=== PATIENT | female | born 1950 | race Caucasian/White ===

== ENCOUNTER 2024-09-06 15:09 | Outpatient (AMB) | payer MEDICARE, SELFPAY ==
--- NOTE | 2024-09-06 15:13 | MHC.PC.OV ---
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 Intake Note: New patient visit Phlebotomy Technologist Required: No Allergies codeine Allergy (Mild, Verified 09/06/24 15:17) heart races Medication List - Last Reconciled 09/06/24 by Candice Zhang PA-C [[id number] .] escitalopram oxalate 10 mg PO DAILY glipizide ER 10 mg PO BID levothyroxine 50 mcg PO DAILY metformin 1,000 mg PO BID metoprolol tartrate 100 mg PO DAILY rosuvastatin 10 mg PO DAILY Tobacco use date assessed: 09/06/24 Fall risk assessment: No Falls in past year Last assessed Fall Risk: 09/06/24 Dental Screening Dental Screen Date: 09/06/24 Did you have a dental visit in the last 12 months?: No Did you have a dental problem in the last 6 months where you did not have access to dental care?: No Was dental information given to patient?: Patient declined 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 She is transferring from [place]. Endo: She was diagnosed with diabetes around 1994. Her last A1c today is 11. She is currently on glipizide 10 mg twice a day and metformin 1000 mg twice a day. She monitors bs once a day and its around 250. States that she has never had diabetic Education. She would correct low blood sugar with orange juice but states that she never has any low blood sugars. She feels fine with her blood sugars being high. CV: Blood pressure today in the office is 128/72. She is currently on metoprolol 100 mg daily. Not on an PEDRO-inhibitor. Cholesterol is controlled with Crestor 10 mg. 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 Mother had liver ca and she did not drink alcohol. Pt states she rarely drinks alcohol. Patient states that she had to move from [place] before a workup was done due to family drama. Psych: This year has been rough with the move from [place] to [place] and with the family dynamics. She states that she does not really have depression or anxiety and was taking Lexapro but found it ineffective. She is stopping this. No SI/HI. She did lose her a couple years ago and she has been dealing with that. She overall feels okay. She is currently staying with a friend in his originally from [place] and feeling well about being here. Derm: Complains today of an itchy, peeling and intermittently blistering rash on her hands. It started this winter. It gets worse when she washes her hands a lot. Mammo: does not want anymore Colonoscopy: a couple years ago Bone density: osteopenia overdue Sister had lung cancer Maternal grandmother had pancreatic ca Mother had liver ca - not a drinker [facility] Surgical History History of partial hysterectomy History of cholecystectomy Family History Brother Substance abuse Mother Liver cancer Sister Lung cancer Social History (Updated 09/06/24 @ 15:32 by Faina Castro CMA) Housing: House Alcohol intake: current Patient Tobacco Use Status: Former Tobacco user Cigarette Packs Per Day: 1 Years Smoked: 25 e-Cigarette/Vaping Use: Never Used Second Hand Smoke Exposure: No service: Yes Current occupational status: retired Cognitive needs: No Hearing needs: Yes (hearing loss) Vision needs: No Questionnaire PHQ-9 Over the last 2 weeks, how often have you been bothered by any of the following problems? 1. Little interest or pleasure in doing things: not at all 2. Feeling down, depressed, or hopeless: not at all 3. Trouble falling or staying asleep, or sleeping too much: more than half the days 4. Feeling tired or having little energy: more than half the days 5. Poor appetite or overeating: not at all 6. Feeling bad about yourself - or that you are a failure or have let yourself or your family down: not at all 7. Trouble concentrating on things, such as reading the newspaper or watching television: not at all 8. Moving or speaking so slowly that other people could have noticed. Or the opposite - being so fidgety or restless that you have been moving around a lot more than usual: not at all 9. Thoughts that you would be better off or of hurting yourself in some way: not at all Total score: 4 Depression Screening Interpretation: Positive Depression Screening Follow-up: Existing condition and In treatment Depression Screening Done: Yes 81778 - PHQ-9 Billing: Yes Source: Developed by Drs. Ace Juan, Joy Green, Tanmay Lopez and colleagues, with an educational radha from [employer]. Thrive Questionnaire Date Thrive assessed: 08/30/24 I am a: Patient What is your living situation today?: I have a steady place to live Within the past 12 months, did the food you bought not last and you didn't have the money to get more?: Never true Within the past 12 months, did you worry whether your food would run out before you got money to buy more?: Never true Do you have trouble paying for medicines?: No Do you have trouble getting transportation to medical appointments?: No Do you have trouble paying your heating and electricity bill?: No Do you have trouble taking care of your child, family member or friend?: No Do you have trouble with day-to-day activities such as bathing, preparing meals, shopping, managing finances, etc.?: No Are you currently unemployed and looking for a job?: No Are you interested in more education?: No Please select the resources that you would like help with: None Currently or been in a relationship where the following occur: No concerns reported THRIVE Score: 0 AUDIT C Alcohol Use Questionnaire (AUDIT-C) 1. How often do you have a drink containing alcohol?: Monthly or less 2. How many drinks containing alcohol do you have on a typical day when you are drinking?: 1 or 2 3. How often do you have six or more drinks on one occasion?: Never Total Score: 1 Score Reviewed/Action Taken: Yes RAFAELA-7 AMB Questionnaire RAFAELA-7 Date RAFAELA - 7 assessed: 09/06/24 Feeling nervous, anxious, or on edge: 0 = Not at all Not being able to stop or control worryin = Not at all Worrying too much about different things: 0 = Not at all Trouble relaxin = Not at all Being so restless that it is hard to sit still: 0 = Not at all Becoming easily annoyed or irritable: 0 = Not at all Feeling afraid as if something awful might happen: 0 = Not at all Total RAFAELA-7 score (0-4 normal; 5-9 mild; 10-14 moderate; 15-21 severe): 0 Source: Developed by Drs. Ace Juan, Joy Green, Tanmay Lopez and colleagues, with an educational radha from [employer]. RAFAELA-7 Assessment Billing RAFAELA-7 Assessment Tool: RAFAELA-7 Assessment 82792 Physical exam (Primary Care) Vital Signs: Last Vital Signs Pulse 78 09/06/24 15:30 BP 128/72 09/06/24 15:30 Pulse Ox 96 09/06/24 15:30 Oxygen Delivery Method Room Air 09/06/24 15:30 BMI result Body Mass Index 33.9 Tobacco/Smoking Status: Tobacco use Status Tobacco use date assessed 09/06/24 09/06/24 15:32 Patient Tobacco Use Status Former Tobacco user 09/06/24 15:32 e-Cigarette/Vaping Use Never Used 09/06/24 15:32 PHQ-9: PHQ-9 Score PHQ-9: Total score 4 09/06/24 15:33 Depression Screening Interpretation: Positive Depression Screening Follow-up: Existing condition and In treatment Thrive Assessment: Date of Thrive Assessment Date Thrive assessed 08/30/24 09/06/24 15:32 Currently or been in a relationship where the following occur: No concerns reported Const Orientation/consciousness: patient oriented x3 HENMT Ears: hearing grossly normal bilaterally Neck Thyroid: Thyroid normal Lymphatic: no lymphadenopathy noted Resp Auscultation: clear to auscultation bilaterally Cardio Rate: regular rate Rhythm: regular rhythm Heart sounds: S1 normal heart sound present and S2 normal heart sound present GI Inspection: Yes normal to inspection Palpation (GI): Soft to palpation and Other GI palpation findings present (nontender, no cva tenderness) Auscultation: normoactive bowel sounds Rectal Exam - Female: deferred Skin Other: There is peeling, slightly erythematous, rash noted on the hands. Neuro General: patient oriented x3, gait normal and no focal motor deficits Extrem Other: DP pulses 2+ bilaterally. Decreased vibratory sensation bilaterally. Monofilament sensation intact. General: Yes normal to inspection Coding Level of Care Code New Pt Level 5 (75467) Complex EM visit Add On G2211 Diagnoses Cirrhosis K74.60 Uncontrolled type 2 diabetes mellitus with hyperglycemia, with long-term current use of insulin E11.65; Z79.4 Hyperlipidemia E78.5 HTN (hypertension) I10 Dysthymia F34.1 Dyshidrotic eczema L30.1 Additional Codes RAFAELA-7 Assessment Billing - RAFAELA-7 Assessment Tool: RAFAELA-7 Assessment 50161 ([id number]) PHQ-9 - 57648 - PHQ-9 Billing: Yes ([id number]) Assessment & Plan Assessment & Plan (1) Cirrhosis: Code(s): K74.60 - Unspecified cirrhosis of liver Category: Medical Plan: Referral to [facility] GI (2) Uncontrolled type 2 diabetes mellitus with hyperglycemia, with long-term current use of insulin: Code(s): E11.65 - Type 2 diabetes mellitus with hyperglycemia; Z79.4 - [facility] (current) use of insulin Category: Medical Plan: We spent about 75 minutes in [id number] time today discussing type 2 diabetes, complications associated with uncontrolled diabetes including neuropathy, kidney disease, blindness, increased risk of heart attack and stroke. We also discussed signs and symptoms of hyper and hypoglycemia that would require emergent medical treatment. Reviewed rule of 15 Glucose tabs order to use if needed for hypoglycemia Advised to continue glipizide and metformin. Labs ordered today. I will be starting her on Lantus 10 units nightly. Advised to start this tonight. She will then take Trulicity a few days later. We reviewed risks and benefits and adverse effects of this medication including risk of nausea, vomiting, pancreatitis. Her previous PCP had wanted her on Ozempic but it was not covered and did not try for another GLP 1. She says that she is familiar with the risks. CGM ordered. Advised how to apply this. I did send in a reader for her as well. I did tell her if she has any issues with this that she will bring it into our visit and I will apply it for her unsure how to use this. (3) Hyperlipidemia: Code(s): E78.5 - Hyperlipidemia, unspecified Category: Medical Plan: Continue Crestor. LFTs and lipids ordered (4) HTN (hypertension): Code(s): I10 - Essential (primary) hypertension Category: Medical Plan: Currently controlled. Continue current regimen (5) Dysthymia: Code(s): F34.1 - Dysthymic disorder Category: Medical Plan: She will be discontinuing Lexapro and see how she feels. (6) Dyshidrotic eczema: Code(s): L30.1 - Dyshidrosis [pompholyx] Category: Medical Plan: We will start on triamcinolone cream. Advised her to keep her hands well hydrated. Orders: Orders Microalbumin, Random (w Creat) Today E11.65 - Type 2 diabetes mellitus with hyperglycemia, E78.5 - Hyperlipidemia, unspecified, F34.1 - Dysthymic disorder, I10 - Essential (primary) hypertension, K74.60 - Unspecified cirrhosis of liver, Z79.4 - [employer] (current) use of insulin XR DEXA axial skeleton Today Z13.820 - Encounter for screening for osteoporosis B Type Natriuretic Peptide Today E11.65 - Type 2 diabetes mellitus with hyperglycemia, E78.5 - Hyperlipidemia, unspecified, F34.1 - Dysthymic disorder, I10 - Essential (primary) hypertension, K74.60 - Unspecified cirrhosis of liver, Z79.4 - [facility] (current) use of insulin Complete Blood Count Auto Diff Today E11.65 - Type 2 diabetes mellitus with hyperglycemia, E78.5 - Hyperlipidemia, unspecified, F34.1 - Dysthymic disorder, I10 - Essential (primary) hypertension, K74.60 - Unspecified cirrhosis of liver, Z79.4 - [facility] (current) use of insulin Lipid Panel Today E11.65 - Type 2 diabetes mellitus with hyperglycemia, E78.5 - Hyperlipidemia, unspecified, F34.1 - Dysthymic disorder, I10 - Essential (primary) hypertension, K74.60 - Unspecified cirrhosis of liver, Z79.4 - [facility] (current) use of insulin Comprehensive [place]. Panel Fast Today E11.65 - Type 2 diabetes mellitus with hyperglycemia, E78.5 - Hyperlipidemia, unspecified, F34.1 - Dysthymic disorder, I10 - Essential (primary) hypertension, K74.60 - Unspecified cirrhosis of liver, Z79.4 - [facility] (current) use of insulin TSH reflex Free T4 Today E11.65 - Type 2 diabetes mellitus with hyperglycemia, E78.5 - Hyperlipidemia, unspecified, F34.1 - Dysthymic disorder, I10 - Essential (primary) hypertension, K74.60 - Unspecified cirrhosis of liver, Z79.4 - [facility] (current) use of insulin Referrals Gastroenterology Referral E11.65 - Type 2 diabetes mellitus with hyperglycemia, K74.60 - Unspecified cirrhosis of liver, Z79.4 - [employer] (current) use of insulin Medications: New metoprolol succinate ER 100 mg PO DAILY 90 tabs 2RF rosuvastatin 10 mg PO DAILY 90 tabs 3RF 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 sensor (FreeStyle Everton 3 Sensor device) Apply every 14 days As directed to monitor blood glucose 2 ea 11RF E11.9 - Type 2 diabetes mellitus without complications, Z79.4 - [facility] (current) use of insulin 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 sensor (FreeStyle Ever[place] 3 Plus Sensor device) Use daily As directed to monitor glucose 2 ea 5RF E08.29 - Diabetes mellitus due to underlying condition with other diabetic kidney complication, R80.9 - Proteinuria, unspecified, Z79.4 - [facility] (current) use of insulin 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 meter,continuous (FreeStyle Ever[place] 3 Arthur) Use daily As directed to monitor blood glucose 1 ea 0RF E11.65 - Type 2 diabetes mellitus with hyperglycemia, Z79.4 - [employer] (current) use of insulin glucose (Dex4 Glucose) until symptoms of low blood sugar are controlled 16 grams (4 x 4 gram) PO Q15M PRN 100 tabs 0RF hypoglycemia dulaglutide (Trulicity) 0.75 mg (0.5 mL) subcut QWEEK 2 mL 3RF triamcinolone acetonide 0.025% 1 appl topical BID 80 grams 1RF glipizide ER 10 mg PO BID 90 days 180 tabs 1RF levothyroxine 50 mcg PO DAILY 90 tabs 3RF metformin 1,000 mg PO BID 90 days 180 tabs 1RF insulin glargine (Lantus Solostar U-100 Insulin) 10 units (0.1 mL) subcut QPM 15 mL 3RF pen needle, diabetic (BD Desi 2nd Gen Pen Needle) Use BID As directed 100 ea 3RF
[2024-09-06 15:30] VITALS: BP 128/72; PULSE 78; O2SAT 96; BMI 33.9
== END 2024-09-06 16:21 | disposition home or self-care (01) ==
PROVIDERS: PCP Physician Assistant; Visit Provider Physician Assistant
DX: K74.60 Unspecified cirrhosis of liver (principal); E11.65 Type 2 diabetes mellitus with hyperglycemia; Z79.4 Long term (current) use of insulin; E78.5 Hyperlipidemia, unspecified; I10 Essential (primary) hypertension; F34.1 Dysthymic disorder; L30.1 Dyshidrosis [pompholyx]

== ENCOUNTER → 2024-09-06 15:09 | Outpatient (BNVA) | payer MEDICARE, SELFPAY | PROVIDERS: Visit Provider Physician Assistant | DX: K74.60 Unspecified cirrhosis of liver (principal); E11.65 Type 2 diabetes mellitus with hyperglycemia; E78.5 Hyperlipidemia, unspecified; I10 Essential (primary) hypertension; L30.1 Dyshidrosis [pompholyx]; F34.1 Dysthymic disorder; Z79.4 Long term (current) use of insulin | CPT/HCPCS: 83036; 96127; 99202 ==

== ENCOUNTER 2024-09-07 08:14 | Outpatient (REF) | payer MEDICARE, MEDICAID, SELFPAY ==
[2024-09-07 10:20] LABS: MANUAL DIFF FLAG NO
[2024-09-07 10:27] LABS: Basophils Percent Auto 0.4 % (0-2); Eosinophils Absolute Auto 0.1 X10*3/uL (0.0-0.4); Eosinophils Percent Auto 1.6 % (0-4); Hematocrit 41.6 % (37.0-47.0); Hemoglobin 13.8 g/dl (12.0-16.0); Imm Gran Abs Auto 0.02 X10*3/uL (0.00-0.03); Imm Gran Pct Auto 0.4 % (0.0-0.4); Lymphocytes Absolute Auto 1.2 X10*3/uL (1.2-4.9); Mean Corpuscular HGB Conc 33.2 g/dl (31.0-35.0); Mean Corpuscular Hemoglobin 27.1 pg (27.0-33.0); Mean Corpuscular Volume 81.6 fL (80.0-98.0); Monocytes Absolute Auto 0.4 X10*3/uL (0.1-1.2); Monocytes Percent Auto 7.1 % (2-11); Neutrophils Absolute Auto 3.4 x10*3/uL (2.0-8.3); Neutrophils Percent Auto 67.5 % (45-73); Red Cell Distribution Width 13.2 % (11.0-16.0); White Blood Count 5.1 X10*3/uL (4.8-10.8)
[2024-09-07 10:29] LABS: B Type Natriuretic Peptide 23 pg/mL (<100)
[2024-09-07 10:43] LABS: Alanine Aminotransferase 36 U/L (0-31); Albumin Level 3.9 g/dL (3.5-5.0); Alkaline Phosphatase 109 U/L (39-117); Anion Gap 11 (12-20); Aspartate Amino Transferase 34 U/L (5-31); Bilirubin Total 0.6 mg/dL (0.0-1.0); Blood Urea Nitrogen 21 mg/dL (9-16); Calcium 9.6 mg/dL (8.4-10.2); Carbon Dioxide 28 mmol/L (22-29); Chloride 103 mmol/L (96-108); Cholesterol 180 mg/dL (<200); Estimated Glomerular Filt Rate 56; Glucose Fasting 313 mg/dL (60-99); HDL Cholesterol 42 mg/dL (>40); LDL Cholesterol Calculated 92 mg/dL (<100); Potassium 4.7 mmol/L (3.3-5.1); Sodium 137 mmol/L (135-145); Total Protein 7.6 g/dL (6.5-8.0); Triglycerides 233 mg/dL (<150)
[2024-09-07 11:02] LABS: Creatinine Urine 72.85 mg/dL; Microalbum/Creatinine Ratio Ur 111.1 ug/mg cr (<30)
[2024-09-07 11:04] LABS: TSH reflex Free T4 1.87 uIU/mL (0.32-4.0)
[2024-09-07 11:21] LABS: Platelet Count 81 X10*3/uL (160-400)
[2024-09-07 11:22] LABS: Mean Platelet Volume 11.7 fL (9.4-12.3)
== END 2024-09-07 08:15 | disposition home or self-care (01) ==
LOC: HO.HMGCLDS 08:14
PROVIDERS: PCP Physician Assistant; Visit Provider Physician Assistant
DX: E78.5 Hyperlipidemia, unspecified (principal); E11.65 Type 2 diabetes mellitus with hyperglycemia; Z79.4 Long term (current) use of insulin; K74.60 Unspecified cirrhosis of liver; I10 Essential (primary) hypertension; F34.1 Dysthymic disorder
CPT/HCPCS: 36415; 80053; 80061; 82043; 82570; 83880; 84443; 85025

== ENCOUNTER 2024-09-20 10:52 | Outpatient (AMB) | payer MEDICARE, MEDICAID, SELFPAY ==
--- NOTE | 2024-09-20 11:14 | MHC.PC.OV ---
Vital Signs 09/20/24 11:21 09/20/24 11:23 Height 4 ft 11.96 in Weight 171 lb 4 oz BMI 33.5 BP 148/70 H 134/72 Blood Pressure Location Lt brachial Rt brachial Position Sitting Sitting Pulse 77 Pulse Source Pulse Oximeter Pulse Oximetry (%) 97 Oxygen Delivery Method Room Air Intake Visit Reasons: dm Intake Note: Follow up diabetes. Believes the Trulicity is causing vivid dreams. Insurance is only covering a month supply of Lantus, it is not on their formulary. Insulin Glargine - YFGN pen is on formulary Network Announcer Required: No Allergies codeine Allergy (Mild, Verified 09/20/24 11:19) heart races shellfish Allergy (Unknown, Uncoded 09/20/24 11:19) joint swelling Medication List - Last Reconciled 09/20/24 by Candice Zhang PA-C 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 meter,continuous (FreeStyle Everton 3 [place]) Use daily As directed to monitor blood glucose 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 sensor (FreeStyle Everton 3 Sensor device) Apply every 14 days As directed to monitor blood glucose 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 sensor (FreeStyle Everton 3 Plus Sensor device) Use daily As directed to monitor glucose [coqu10 .] dulaglutide (Trulicity) 0.75 mg (0.5 mL) subcut QWEEK glipizide ER 10 mg PO BID 90 days glucose (Dex4 Glucose) 16 grams (4 x 4 gram) PO Q15M PRN insulin glargine (Lantus Solostar U-100 Insulin) 10 units (0.1 mL) subcut QPM levothyroxine 50 mcg PO DAILY metformin 1,000 mg PO BID 90 days metoprolol succinate ER 100 mg PO DAILY pen needle, diabetic (BD Desi 2nd Gen Pen Needle) Use BID As directed rosuvastatin 10 mg PO DAILY triamcinolone acetonide 0.025% 1 appl topical BID Tobacco use date assessed: 09/06/24 Dental Screening Dental Screen Date: 09/06/24 HPI dm HPI Details Patient is a 73-year-old female with a significant past medical history of cirrhosis, hypertension, depression, hyperlipidemia and type 2 diabetes presenting today for a follow up. She is relatively new to me and was seen recently to establish care after moving from [place] and not being seen for quite some time. Endo: She was diagnosed with diabetes around 1994. Her last A1c was 11. At our last visit I started her on Lantus 10 units, Trulicity 0.75 mg weekly and advised her to continue glipizide 10 mg twice a day and metformin 1000 mg twice a day. She monitors bs once a day and its around 250. She states that her blood sugars are much better than they were before and have dropped about 100 points. States that she has never had diabetic Education. She would correct low blood sugar with orange juice but states that she never has any low blood sugars. She feels fine with her blood sugars being high. She was not able to get the CGM yet. States that the prior Auth is not done yet. CV: Blood pressure today in the office is 128/72. She is currently on metoprolol 100 mg daily. Not on an PEDRO-inhibitor. Cholesterol is controlled with Crestor 10 mg. 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 Mother had liver ca and she did not drink alcohol. Pt states she rarely drinks alcohol. Patient states that she had to move from [place] before a workup was done due to family drama. Psych: This year has been rough with the move from [place] to [place] and with the family dynamics. She states that she does not really have depression or anxiety and was taking Lexapro but found it ineffective. She is stopping this. No SI/HI. She did lose her a couple years ago and she has been dealing with that. She overall feels okay. She is currently staying with a friend in his originally from [place] and feeling well about being here. Musculoskeletal: Does complain today of left heel pain that is worse in the morning when she 1st gets up. It does get better as the day goes on. This started just a few days ago. It does seem better than it was. No trauma. No swelling. She does have peripheral neuropathy but states it feels overall unchanged. Mammo: does not want anymore Colonoscopy: a couple years ago Bone density: osteopenia overdue Sister had lung cancer Maternal grandmother had pancreatic ca Mother had liver ca - not a drinker [facility] Surgical History History of partial hysterectomy History of cholecystectomy Family History Brother Substance abuse Mother Liver cancer Sister Lung cancer Social History (Updated 09/20/24 @ 11:25 by Faina Castro CMA) Housing: House Alcohol intake: current Patient Tobacco Use Status: Former Tobacco user Cigarette Packs Per Day: 1 Years Smoked: 25 e-Cigarette/Vaping Use: Never Used Second Hand Smoke Exposure: No service: Yes Current occupational status: retired Cognitive needs: No Hearing needs: Yes (hearing loss) Vision needs: No Questionnaire Thrive Questionnaire Date Thrive assessed: 08/30/24 I am a: Patient What is your living situation today?: I have a steady place to live Within the past 12 months, did the food you bought not last and you didn't have the money to get more?: Never true Within the past 12 months, did you worry whether your food would run out before you got money to buy more?: Never true Do you have trouble paying for medicines?: No Do you have trouble getting transportation to medical appointments?: No Do you have trouble paying your heating and electricity bill?: No Do you have trouble taking care of your child, family member or friend?: No Do you have trouble with day-to-day activities such as bathing, preparing meals, shopping, managing finances, etc.?: No Are you currently unemployed and looking for a job?: No Are you interested in more education?: No Please select the resources that you would like help with: None Currently or been in a relationship where the following occur: No concerns reported THRIVE Score: 0 RAFAELA-7 AMB Questionnaire RAFAELA-7 Date RAFAELA - 7 assessed: 09/06/24 Source: Developed by Drs. Ace Juan, Joy Green, Tanmay Lopez and colleagues, with an educational radha from [employer]. Physical exam (Primary Care) Vital Signs: Last Vital Signs Pulse 77 09/20/24 11:21 BP 134/72 09/20/24 11:23 Pulse Ox 97 09/20/24 11:21 Oxygen Delivery Method Room Air 09/20/24 11:21 BMI result Body Mass Index 33.5 Tobacco/Smoking Status: Tobacco use Status Tobacco use date assessed 09/06/24 09/20/24 11:16 Patient Tobacco Use Status Former Tobacco user 09/20/24 11:25 e-Cigarette/Vaping Use Never Used 09/20/24 11:25 Thrive Assessment: Date of Thrive Assessment Date Thrive assessed 08/30/24 09/20/24 11:16 Currently or been in a relationship where the following occur: No concerns reported Const Orientation/consciousness: patient oriented x3 HENMT Ears: hearing grossly normal bilaterally Neck Thyroid: Thyroid normal Lymphatic: no lymphadenopathy noted Resp Auscultation: clear to auscultation bilaterally Cardio Rate: regular rate Rhythm: regular rhythm Heart sounds: S1 normal heart sound present and S2 normal heart sound present GI Inspection: Yes normal to inspection Palpation (GI): Soft to palpation and Other GI palpation findings present (nontender, no cva tenderness) Auscultation: normoactive bowel sounds Rectal Exam - Female: deferred Skin General skin exam: no rashes or lesions noted Neuro General: patient oriented x3, gait normal and no focal motor deficits Extrem Other: DP pulses 2+ bilaterally. There is pain noted on the plantar aspect of the left heel. Full range of motion. No palpable deformity. Gross sensation intact. Monofilament sensation diminished bilaterally. Skin intact. General: Yes normal to inspection Coding Level of Care Code Est Pt Level 4 (18241) Complex EM visit Add On G2211 Diagnoses Uncontrolled type 2 diabetes mellitus with hyperglycemia, with long-term current use of insulin E11.65; Z79.4 Pain of left heel M79.672 Peripheral neuropathy G62.9 Thrombocytopenia D69.6 Assessment & Plan Assessment & Plan (1) Uncontrolled type 2 diabetes mellitus with hyperglycemia, with long-term current use of insulin: Code(s): E11.65 - Type 2 diabetes mellitus with hyperglycemia; Z79.4 - [facility] (current) use of insulin Category: Medical Plan: Increase Lantus to 20 units. Continue current regimen. Message sent regarding prior authorization for the CGM. Referral to endocrinology. (2) Pain of left heel: Code(s): M79.672 - Pain in left foot Category: Medical Plan: Referral to podiatry. Discussed that physical exam and history sound consistent with plantar fasciitis. We did discuss stretches that she could try at home. (3) Peripheral neuropathy: Code(s): G62.9 - Polyneuropathy, unspecified Category: Medical Plan: Stable. As above. (4) Thrombocytopenia: Code(s): D69.6 - Thrombocytopenia, unspecified Category: Medical Plan: Likely related to cirrhosis. Has appointment scheduled with GI in a couple of months. I will monitor this closely. We will repeat CBC within a month. Orders: Orders Complete Blood Count Auto Diff Today D69.6 - Thrombocytopenia, unspecified Comprehensive [place]. 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
[2024-09-20 11:21] VITALS: BP 148/70; PULSE 77; O2SAT 97; BMI 33.5
[2024-09-20 11:23] VITALS: BP 134/72
== END 2024-09-20 11:52 | disposition home or self-care (01) ==
PROVIDERS: PCP Physician Assistant; Visit Provider Physician Assistant
DX: E11.65 Type 2 diabetes mellitus with hyperglycemia (principal); Z79.4 Long term (current) use of insulin; M79.672 Pain in left foot; D69.6 Thrombocytopenia, unspecified; G62.9 Polyneuropathy, unspecified

== ENCOUNTER → 2024-09-20 10:52 | Outpatient (BNVA) | payer MEDICARE, MEDICAID, SELFPAY | PROVIDERS: PCP Physician Assistant; Visit Provider Physician Assistant | DX: E11.65 Type 2 diabetes mellitus with hyperglycemia (principal); M79.672 Pain in left foot; G62.9 Polyneuropathy, unspecified; D69.6 Thrombocytopenia, unspecified; Z79.4 Long term (current) use of insulin | CPT/HCPCS: 99212 ==

== ENCOUNTER 2024-10-01 08:59 | Outpatient (AMB) | payer MEDICARE, MEDICAID, SELFPAY ==
--- NOTE | 2024-10-01 09:05 | A.OFFVIS_ITS ---
Vital Signs 10/01/24 09:07 Height 5 ft 1.89 in Weight 178 lb 5.663 oz BMI 32.7 BP 128/70 Blood Pressure Location Rt brachial Position Sitting Pulse 87 Pulse Source Pulse Oximeter Pulse Oximetry (%) 96 Oxygen Delivery Method Room Air Intake Visit Reasons: T2DM w hyperglycemia/Confirmed Intake Note: Pt sates that she was refered here from her primary care provider faustino for type 2 diabetes. 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 Care Required: No Accompanied by: self Allergies codeine Allergy (Mild, Verified 10/01/24 09:12) heart races shellfish Allergy (Unknown, Uncoded 09/20/24 11:19) joint swelling codiene Allergy (Uncoded 10/01/24 09:11) Unknown Medication List - Last Reconciled 10/01/24 by Chen Russell MD 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 meter,continuous (FreeStyle Everton 3 [place]) Use daily As directed to monitor blood glucose 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 sensor (FreeStyle Everton 3 Sensor device) Apply every 14 days As directed to monitor blood glucose 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 sensor (FreeStyle Everton 3 Plus Sensor device) Use daily As directed to monitor glucose cetirizine (Zyrtec) 10 mg PO DAILY [coqu10 .] dulaglutide (Trulicity) 0.75 mg (0.5 mL) subcut QWEEK fluticasone propionate 50 mcg/actuation (Flonase Allergy Relief) 1 spray intranasal BID glipizide ER 10 mg PO BID 90 days glucose (Dex4 Glucose) 16 grams (4 x 4 gram) PO Q15M PRN insulin glargine-yfgn 20 units (0.2 mL) subcut DAILY levothyroxine 50 mcg PO DAILY metformin 1,000 mg PO BID 90 days metoprolol succinate ER 100 mg PO DAILY pen needle, diabetic (BD Desi 2nd Gen Pen Needle) Use BID As directed rosuvastatin 10 mg PO DAILY triamcinolone acetonide 0.025% 1 appl topical BID HPI Comments Details: 73-year-old female here today to establish care for type 2 diabetes mellitus. History of diabetes Diagnosed in her 50 s with Type 2 DM Prior therapy: Current regimen: Lantus 20 units Metformin 1000 mg BID Trulicity 0.75 mf weekly Glipizide 10 mg BID A1c 11% Aug 2024 POC today 270 mgdl coffee with kinyarwanda cream and cookie 3 meals a day No soda , no sugary drinks \Snacks sometimes Lunch pork chops with rice and broccoli Denies any symptoms of hyperglycemia including polyphagia, polyuria, polydipsia. Denies any hypoglycemic symptoms. SMBG's Didnt bring meter today Checks fasting 200 mostly down from 300s Exercise none Complications Eye exam: Last eye exam was 2 years ago . Neuropathy: numbness burning in hands Kidney disease: has microalbuminuria Macrovascular complications: No history of macrovascular complications. Statin:rosuvatstain 20 mg daily LDL 92 mg /dl Aug 2024 PEDRO/ARB: none Exercise: none Diet control: none He has never had any hospitalizations for hyperglycemia/hypoglycemia. Physical exam General: sitting comfortably in no acute distress HEENT: normocephalic/atraumatic, EOM intact, moist oral mucosa Neck: supple, Cardiac: normal heart sounds Pulm: normal breath sounds B/L, no added breath sounds Abd: not distended, no tenderness Extremities: Bilateral pitting edema noted Neuro: AAO x3, Speech: normal, no facial droop, moving all 4 extremities Foot exam: intact sensation to monofilament, intact pulses, intact vibration Laboratory Tests 09/06/24 09/07/24 09/07/24 16:28 08:32 08:35 Plt Count 81 L Creatinine 0.97 Estimated GFR 56 Glucose (Clinic) Hgb A1c (Clinic) 11.0 H AST 34 H ALT 36 H B-Natriuretic Peptide Triglycerides 233 H Cholesterol 180 LDL Cholesterol, Calc 92 HDL Cholesterol 42 Urine Creatinine 72.85 Urine Microalbumin 81.0 Microalb/Creat Ratio 111.1 H 09/07/24 10/01/24 08:37 09:22 Plt Count Creatinine Estimated GFR Glucose (Clinic) 270 H Hgb A1c (Clinic) AST ALT B-Natriuretic Peptide 23 Triglycerides Cholesterol LDL Cholesterol, Calc HDL Cholesterol Urine Creatinine Urine Microalbumin Microalb/Creat Ratio [facility] Medical History (Updated 10/01/24 @ 10:18 by Chen Russell MD) Hypothyroidism Surgical History History of partial hysterectomy History of cholecystectomy Family History Brother Substance abuse Mother Liver cancer Sister Lung cancer Social History (Reviewed 10/01/24 @ 09:14 by MARIANO Reynolds Housing: House Alcohol intake: current Patient Tobacco Use Status: Former Tobacco user Cigarette Packs Per Day: 1 Years Smoked: 25 e-Cigarette/Vaping Use: Never Used Second Hand Smoke Exposure: No service: Yes Current occupational status: retired Cognitive needs: No Hearing needs: Yes (hearing loss) Vision needs: No Physical Exam Vital Signs: Last Vital Signs Pulse 87 10/01/24 09:07 BP 128/70 10/01/24 09:07 Pulse Ox 96 10/01/24 09:07 Oxygen Delivery Method Room Air 10/01/24 09:07 BMI result Body Mass Index 32.7 Results Reviewed Results Reviewed: Laboratory Last Values Glucose (Clinic) 270 mg/dL (60-115) H 10/01/24 09:22 Assessment & Plan Assessment & Plan (1) Uncontrolled type 2 diabetes mellitus with hyperglycemia, with long-term current use of insulin: Code(s): E11.65 - Type 2 diabetes mellitus with hyperglycemia; Z79.4 - terminal worker (current) use of insulin Category: Medical Plan: 73-year-old female here today for initial evaluation of type 2 diabetes mellitus who was diagnosed in her 50s, currently with long-term insulin use with complications of neuropathy, microalbuminuria. Her A1c from August 2024 was 11%. Previously she was following with her primary care physician. She was started on the Lantus 10 units daily which was titrated up to 20 units daily in August 2024. Trulicity is also a new medication for her and she has had so 4 injections so far and tolerating that fine. We will titrate up her Trulicity, she continues to have blood sugars in the 200s. She also notably has urine microalbumin levels that are elevated. She would benefit from an SGLT2 inhibitor as well. I will plan to start this at the next visit. For now we will titrate the Trulicity. Plan: -continue metformin 1000 mg b.i.d. -continue Lantus 20 units daily -increase Trulicity to 1.5 mg weekly injection -stopped glipizide -follow up in 8 weeks -she is already prescribed a CGM freestyle Everton 3, she is waiting to pick it up from pharmacy once insurance approves it. -discussed with her importance of checking blood sugars, asked her to bring her glucometer to next appointment so we can also prescribed backup strips and then to sit -discussed complications of hyperglycemia including stroke, CA, microvascular complications -she has not seen an eye doctor in 2 years, ophthalmology referral placed -she is complaining of shortness of breath and has pedal edema, BNP level at 23 from August 2024. Unlikely to be CHF, however she also apparently has a history of cirrhosis, has GI referral pending -advised 30 minutes of exercise daily -nutrition referral placed -perioperative educator referral placed, asked her to bring Openbravoe 3 to that visit (2) Peripheral neuropathy: Code(s): G62.9 - Polyneuropathy, unspecified Category: Medical Qualifiers: Peripheral neuropathy type: polyneuropathy associated with underlying disease Qualified Code(s): G63 - Polyneuropathy in diseases classified elsewhere Plan: Patient is complaining of numbness and burning in her hands. She does have history of neuropathy likely due to diabetes mellitus. Podiatry referral is already placed. However I will also check her vitamin B12 level especially given that she has been on metformin. Could be due to vitamin B12 deficiency. 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 On levothyroxine 50 mcg daily TSH 1.87, biochemically euthyroid from August 2024 Plan: -continue levothyroxine 50 mcg daily (4) Hyperlipidemia: Code(s): E78.5 - Hyperlipidemia, unspecified Category: Medical Qualifiers: Hyperlipidemia type: mixed hyperlipidemia Qualified Code(s): E78.2 - Mixed hyperlipidemia Plan: Noted to have elevated triglyceride levels as well as LDL above goal of 90 mg/dL from August 2024. Continue rosuvastatin 20 mg daily, we will plan to add Zetia if lipid panel does not show improvement in LDL and triglycerides in 3 months. We will plan to repeat labs around spring. Plan I spent 60 minutes in reviewing the record, seeing the patient and documenting in the medical record. Orders: Orders Vitamin B12 Today E03.9 - Hypothyroidism, unspecified, E11.65 - Type 2 diabetes mellitus with hyperglycemia, G62.9 - Polyneuropathy, unspecified, Z79.4 - terminal worker (current) use of insulin Referrals Diabetes Education Referral E11.65 - Type 2 diabetes mellitus with hyperglycemia, Z79.4 - terminal worker (current) use of insulin Ophthalmology Referral E11.65 - Type 2 diabetes mellitus with hyperglycemia, Z79.4 - terminal worker (current) use of insulin Cash Management Coordinator Nutrition Referral E11.65 - Type 2 diabetes mellitus with hyperglycemia, Z79.4 - longterm (current) use of insulin Medications: New dulaglutide (Trulicity) 1.5 mg (0.5 mL) subcut QWEEK 6 mL 3RF Discontinued dulaglutide (Trulicity) Discontinued Reason: No Longer Medically Relevant 0.75 mg (0.5 mL) subcut QWEEK 2 mL 3RF glipizide ER Discontinued Reason: No Longer Medically Relevant 10 mg PO BID 90 days 180 tabs 1RF Patient Instructions: Stop glipizide Increase Trulicity to 1.5 mg weekly injection Continue lantus 20 units daily Continue metformin 1000 twice daily Start walking to build up to 30 mins a day See eye doctor See gun club manager See perioperative educator, bring your sensor to that visit so she can put it on Rule of 15 Treatment for Hypoglycemia (Low blood sugar) If your blood glucose is low (70 and below)*, follow the steps below to treat: Eat or drink something from the list below equal to 15 grams of carbohydrate (carb). Rest for 15 minutes Re-check your blood glucose. If it is still low, (below 70), repeat step 1 above. ? If your next meal is more than an hour away, you will need to eat one carbohydrate choice as a snack to keep your blood glucose from going low again. ?If you can't figure out why you have low blood glucose, call your healthcare provider, as your medicine may need to be adjusted. ?Always carry something with you to treat an insulin reaction. Use food from the list below. ? Foods equal to One Carbohydrate Choice (15 grams of carbohydrate): 3 Glucose ?tablets or 4 Dextrose tablets 4 ounces of fruit juice 5-6 ounces (about 1/2 can) of regular soda such as Coke or Pepsi ? 7-8 gummy or regular Life Savers ? 1 Tbsp. of sugar or jelly NOTE: If your blood sugar is less than 50, double the portion above for a total of 30 gm. ?Carbohydrate. ? Follow meal plan of 45-60 g of consistent carbohydrates at 3 meals each day and 15 g of carbohydrate at 1-2 snacks each day. 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
[2024-10-01 09:07] VITALS: BP 128/70; PULSE 87; O2SAT 96; BMI 32.7
--- NOTE | 2024-10-01 09:15 | MHC.OFFVIS ---
Vital Signs 10/01/24 09:07 10/01/24 09:16 Height 5 ft 1.89 in Weight 178 lb 5.663 oz BMI 32.7 32.7 BP 128/70 Blood Pressure Location Rt brachial Position Sitting Pulse 87 Pulse Source Pulse Oximeter Pulse Oximetry (%) 96 Oxygen Delivery Method Room Air Intake Visit Reasons: T2DM w hyperglycemia/Confirmed Allergies codeine Allergy (Mild, Verified 10/01/24 09:12) heart races shellfish Allergy (Unknown, Uncoded 09/20/24 11:19) joint swelling codiene Allergy (Uncoded 10/01/24 09:11) Unknown PFSH Surgical History History of partial hysterectomy History of cholecystectomy Family History Brother Substance abuse Mother Liver cancer Sister Lung cancer Social History Housing: House Alcohol intake: current Patient Tobacco Use Status: Former Tobacco user Cigarette Packs Per Day: 1 Years Smoked: 25 e-Cigarette/Vaping Use: Never Used Second Hand Smoke Exposure: No service: Yes Current occupational status: retired Cognitive needs: No Hearing needs: Yes (hearing loss) Vision needs: No Physical Exam Vital Signs: BMI result Body Mass Index 32.7 Quality Reporting (2020) Adult ([facility] 138/10/13/68) Body Mass Index: 32.7 Coding
--- NOTE | 2024-10-01 09:17 | A.OFFVIS_ITS ---
Vital Signs 10/01/24 09:07 Height 5 ft 1.89 in Weight 178 lb 5.663 oz BMI 32.7 BP 128/70 Blood Pressure Location Rt brachial Position Sitting Pulse 87 Pulse Source Pulse Oximeter Pulse Oximetry (%) 96 Oxygen Delivery Method Room Air Intake Visit Reasons: T2DM w hyperglycemia/Confirmed Intake Note: NEW Patient presents today to re-establish treatment for Type 2 Diabetes Mellitus: Last Diabetic eye exam was on: DUE Last Podiatry exam was on: Patient does not see a Cleaner Signs Most recent HbA1c: 11.0%, 09/06/2024 Random Glucose- 270 mg/dL, Today Information Technology Account Manager Required: No Accompanied by: Self / Same As Patient Allergies codeine Allergy (Mild, Verified 10/01/24 09:12) heart races shellfish Allergy (Unknown, Uncoded 09/20/24 11:19) joint swelling codiene Allergy (Uncoded 10/01/24 09:11) Unknown [facility] Surgical History History of partial hysterectomy History of cholecystectomy Family History Brother Substance abuse Mother Liver cancer Sister Lung cancer Social History Housing: House Alcohol intake: current Patient Tobacco Use Status: Former Tobacco user Cigarette Packs Per Day: 1 Years Smoked: 25 e-Cigarette/Vaping Use: Never Used Second Hand Smoke Exposure: No service: Yes Current occupational status: retired Cognitive needs: No Hearing needs: Yes (hearing loss) Vision needs: No Physical Exam Vital Signs: Last Vital Signs Pulse 87 10/01/24 09:07 BP 128/70 10/01/24 09:07 Pulse Ox 96 10/01/24 09:07 Oxygen Delivery Method Room Air 10/01/24 09:07 BMI result Body Mass Index 32.7 Results Reviewed Results Reviewed: Laboratory Last Values Glucose (Clinic) 270 mg/dL (60-115) H 10/01/24 09:22 Coding
[2024-10-01 09:26] LABS: Glucose, Whole Blood 270 mg/dL (60-115)
== END 2024-10-01 10:08 | disposition home or self-care (01) ==
PROVIDERS: PCP Physician Assistant; Visit Provider Student in an Organized Health Care Education/Training Program
DX: E11.65 Type 2 diabetes mellitus with hyperglycemia (principal); E06.3 Autoimmune thyroiditis; G63 Polyneuropathy in diseases classified elsewhere; Z79.4 Long term (current) use of insulin; E78.2 Mixed hyperlipidemia
CPT/HCPCS: 99205; G2211

== ENCOUNTER → 2024-10-01 08:59 | Outpatient (BNVA) | payer MEDICARE, MEDICAID, SELFPAY | PROVIDERS: PCP Physician Assistant; Visit Provider Student in an Organized Health Care Education/Training Program | DX: E11.65 Type 2 diabetes mellitus with hyperglycemia (principal); E06.3 Autoimmune thyroiditis; E78.2 Mixed hyperlipidemia; G63 Polyneuropathy in diseases classified elsewhere; Z79.84 Long term (current) use of oral hypoglycemic drugs; Z79.85 Long-term (current) use of injectable non-insulin antidiabetic drugs; Z79.4 Long term (current) use of insulin | CPT/HCPCS: 82947; 99202 ==

== ENCOUNTER 2024-10-10 10:25 | Outpatient (AMB) | payer MEDICARE, MEDICAID, SELFPAY ==
--- NOTE | 2024-10-10 10:36 | A.OFFVIS_ITS ---
VS Expanded 10/10/24 12:40 Height 5 ft 1.89 in Weight 177 lb 3.5 oz BMI 32.5 Intake Visit Reasons: DM Allergies codeine Allergy (Mild, Verified 10/01/24 09:12) heart races shellfish Allergy (Unknown, Uncoded 09/20/24 11:19) joint swelling codiene Allergy (Uncoded 10/01/24 09:11) Unknown Nutrition Presentation Details: Pt presents for MNT for T2DM Pt reports participating in [facility] activities/lunches Reports most meals are away from home food frequency fruits: 0-1/d vegetables: 2/d dairy: 3+ starches> 18/d fish: 0-1/wk beverages water, juice, soda, tea , broth physical activity: ADL ETOH/SMoking ----- BS Monitoring Most Recent Diabetes Results: Microalb/Creat Ratio 111.1 ug/mg cr (<30) H 09/07/24 Cholesterol 180 mg/dL (<200) 09/07/24 HDL Cholesterol 42 mg/dL (>40) 09/07/24 Triglycerides 233 mg/dL (<150) H 09/07/24 Creatinine 0.98 mg/dL (0.5-1.4) 10/15/24 Blood Urea Nitrogen 18 mg/dL (9-16) H 10/15/24 Sodium 137 mmol/L (135-145) 10/15/24 Potassium 4.8 mmol/L (3.3-5.1) 10/15/24 Chloride 101 mmol/L (96-108) 10/15/24 Carbon Dioxide 28 mmol/L (22-29) 10/15/24 Calcium 9.7 mg/dL (8.4-10.2) 10/15/24 AST 30 U/L (5-31) 10/15/24 ALT 29 U/L (0-31) 10/15/24 Total Protein 8.0 g/dL (6.5-8.0) 10/15/24 Albumin 4.0 g/dL (3.5-5.0) 10/15/24 GCS-Jskjbcw-Yg.Jeor Equation Height: 5 ft 1 in Weight: 177 lb Resting Metabolic Rate: 1240.43 Calculated Activity Level: Mild Activity Calories Needed to Maintain Weight: 1705.59 Diagnosis Nutrition problem #1: food nutri know defi As related to (etiology) #1: diagnosis As evidenced by (sign/symptom) #1: abnormal lab values [facility] Medical History (Updated 10/01/24 @ 10:18 by Chen Russell MD) Hypothyroidism Surgical History History of partial hysterectomy History of cholecystectomy Family History Brother Substance abuse Mother Liver cancer Sister Lung cancer Social History Housing: House Alcohol intake: current Patient Tobacco Use Status: Former Tobacco user Cigarette Packs Per Day: 1 Years Smoked: 25 e-Cigarette/Vaping Use: Never Used Second Hand Smoke Exposure: No service: Yes Current occupational status: retired Cognitive needs: No Hearing needs: Yes (hearing loss) Vision needs: No Assessment & Plan Assessment & Plan (1) Uncontrolled type 2 diabetes mellitus with hyperglycemia, with long-term current use of insulin: Code(s): E11.65 - Type 2 diabetes mellitus with hyperglycemia; Z79.4 - intermediate manager (current) use of insulin Category: Medical Plan: Wt: 80 Kg ( 11/13 ) Est kcal needs as per MSJ: 7768-5302 (40% carb, 30% protein/fat) Est fluid needs as per 25-30 ml/d: 2400 Est prot per day as per 1 g/kg bw: 80 Recommend fiber intake : 8-10 g per day and gradually increase to 25-28 g per day for women and 35-38 g for men or as tolerated Recommend sodium intake per day : less than 2000 mg Educated patient on: ( R = reviewed V = verbalizes understanding N/R = needs review N/A = not applicable * Food sources of carbohydrate, adequate serving sizes and its role in various health conditions: R V N/R * Differences between complex carbohydrates a simple carbohydrates, role of fiber in diet: R * Lean protein sources of foods: R * Differences between types of fats and role in diet (mono on saturated fat fatty acids, saturated fatty acids, trans fats): R V N/R * Food sources of sodium in salt and healthy modifications for heart health in kidney health: R V R/V * Vitamins and minerals: R V N/R * Healthy plate method concept: R * Physical activity: Benefits a precaution: R V N/R * Hypoglycemia protocol (rule of 15): R V N/R * Dietary prevention of Hyperglycemia: R V R/V Patient Instructions: Combine protein foods with fiber rich foods - see meal ideas, following healthy plate method keep hydrated by choosing water, fruit/herb flavored infused water Coding Level of Care Code Nutr Indiv Intake (59425) Diagnoses Uncontrolled type 2 diabetes mellitus with hyperglycemia, with long-term current use of insulin E11.65; Z79.4 Time Spent (min) 30
--- OUTSIDE RECORDS SUMMARY | 2024-10-10 11:03 | XMS_ITS | Clinical Summary ---
Author Organization [address] [place] [address] Address [address] [place] [address] Phone Care Team Providers Care Mild Disabilities Teacher Name Role Phone Candice Zhang Primary Care Provider [phone] Social History Tobacco Use Types Packs/Day Years Used Date Smoking Tobacco: Never Assessed Comments Unknown Sex and Gender Information Value Date Recorded Sex Assigned at Not on file Legal Sex Female 2:57 PM EST Gender Identity Not on file Sexual Orientation Not on file Plan of Treatment Upcoming Encounters Date Type Department Care Team (Late st Contact Info) Description 12/11/2024 9:45 AM EDT Consult Orthopedic Surgery - [place] [address] [phone] Tano Joyce, DPFly [address] [address] Health Maintenance Due Date Last Done Comments Diabetes: Annual GFR (Glomer ular Filtration Rate) 1948 Diabetes: Annual Foot Exam 1958 Diabetes: Annual Retina Eye Exam 1958 DTaP,Tdap,and Td Vaccines (1 - Tdap) 11/22/1967 Pneumococcal Vaccine: 50+ Ye ars (1 of 2 - PCV) 11/22/1967 Zoster Vaccines (1 of 2) 1998 RSV Immunization Patients 60 + Years Old (1 - 1-dose 75+ series) 11/22/2023 COVID-19 Vaccine (1 - 2023-2 5 season) 2024 Influenza Vaccine (#1) 2024 Cholesterol Screening (Lipid Panel) 10/08/2024 Colorectal Cancer Screening: Colonoscopy 10/08/2024 Depression Screening 10/08/2024 Diabetes: Annual Urine Albumin-Creatinine Ratio (uACR) 10/08/2024 Diabetes: Blood Sugar Contro l Test (HGBA1C) 10/08/2024 Falls Risk Assessment 10/08/2024 Hepatitis C Screening 10/08/2024 Medicare Annual Wellness Visit 10/08/2024 Osteoporosis Screening (Bone Density Screening) 10/08/2024 Social Influencers of Health Screening 10/08/2024 HIB Vaccines Aged Out No longer eligi ble based on patient's age to complete this topic HPV Vaccines Aged Out No longer eligi ble based on patient's age to complete this topic Hepatitis A Vaccines Aged Out No long er eligible based on patient's age to complete this topic Hepatitis B Vaccines Aged Out No long er eligible based on patient's age to complete this topic IPV Vaccines Aged Out No longer eligi ble based on patient's age to complete this topic MMR Vaccines Aged Out No longer eligi ble based on patient's age to complete this topic Meningococcal ACWY Vaccine Aged Out N o longer eligible based on patient's age to complete this topic Meningococcal B Vacine Aged Out No lo nger eligible based on patient's age to complete this topic RSV Immunization Patients Un brooke 20 months Aged Out No longer eligible b ased on patient's age to complete this topic Varicella Vaccines Aged Out No longer eligible based on patient's age to complete this topic Insurance MEDICARE MEDICAID - [place] Care Teams Mild Disabilities Teacher Relationship Specialty Start Date End Date Candice Zhang PA [address] [place] [address] PCP - General Physician Tax Commissioner 10/08/24
[2024-10-10 12:40] VITALS: BMI 32.5
[2024-10-22 12:45] VITALS: BMI 33.4
== END 2024-10-10 11:16 | disposition home or self-care (01) ==
PROVIDERS: PCP Physician Assistant; Visit Provider Dietitian, Registered
DX: E11.65 Type 2 diabetes mellitus with hyperglycemia (principal); Z79.4 Long term (current) use of insulin

== ENCOUNTER → 2024-10-10 10:25 | Outpatient (BNVA) | payer MEDICARE, MEDICAID, SELFPAY | PROVIDERS: PCP Physician Assistant; Visit Provider Dietitian, Registered | DX: E11.65 Type 2 diabetes mellitus with hyperglycemia (principal); Z71.3 Dietary counseling and surveillance; Z79.4 Long term (current) use of insulin | CPT/HCPCS: 97802 ==

== ENCOUNTER 2024-10-15 08:05 | Outpatient (REF) | payer MEDICARE, MEDICAID, SELFPAY ==
--- OUTSIDE RECORDS SUMMARY | 2024-10-15 08:08 | XMS_ITS | Clinical Summary ---
Author Organization [address] [place] [address] Address [address] [place] [address] Phone Care Team Providers Care Patrol Mother Name Role Phone Candice Zhang Primary Care Provider [phone] Social History Tobacco Use Types Packs/Day Years [...] 9:45 AM EDT Consult Orthopedic Surgery - [place] [address] [phone] Tano Joyce, DPFly [address] [address] Health Maintenance Due Date Last Done Comments [...] Insurance MEDICARE MEDICAID - [place] Care Teams Patrol Mother Relationship Specialty Start Date End Date Candice Zhang PA [address] [place] [address] PCP - General Physician Reprographics Associate 10/08/24
[2024-10-15 10:29] LABS: MANUAL DIFF FLAG NO
[2024-10-15 10:37] LABS: Basophils Percent Auto 0.8 % (0-2); Eosinophils Absolute Auto 0.1 X10*3/uL (0.0-0.4); Eosinophils Percent Auto 2.3 % (0-4); Hematocrit 44.5 % (37.0-47.0); Hemoglobin 14.4 g/dl (12.0-16.0); Imm Gran Abs Auto 0.01 X10*3/uL (0.00-0.03); Imm Gran Pct Auto 0.2 % (0.0-0.4); Lymphocytes Absolute Auto 1.3 X10*3/uL (1.2-4.9); Lymphocytes Percent Auto 25.9 % (20-40); Mean Corpuscular HGB Conc 32.4 g/dl (31.0-35.0); Mean Corpuscular Hemoglobin 26.5 pg (27.0-33.0); Mean Corpuscular Volume 81.8 fL (80.0-98.0); Mean Platelet Volume 11.7 fL (9.4-12.3); Monocytes Absolute Auto 0.3 X10*3/uL (0.1-1.2); Monocytes Percent Auto 6.6 % (2-11); Neutrophils Absolute Auto 3.3 x10*3/uL (2.0-8.3); Neutrophils Percent Auto 64.2 % (45-73); Platelet Count 113 X10*3/uL (160-400); Red Blood Count 5.44 X10*6/uL (4.20-5.50); Red Cell Distribution Width 13.2 % (11.0-16.0); White Blood Count 5.2 X10*3/uL (4.8-10.8)
[2024-10-15 11:19] LABS: Alanine Aminotransferase 29 U/L (0-31); Alkaline Phosphatase 102 U/L (39-117); Anion Gap 13 (12-20); Aspartate Amino Transferase 30 U/L (5-31); Bilirubin Total 0.7 mg/dL (0.0-1.0); Blood Urea Nitrogen 18 mg/dL (9-16); Calcium 9.7 mg/dL (8.4-10.2); Carbon Dioxide 28 mmol/L (22-29); Chloride 101 mmol/L (96-108); Estimated Glomerular Filt Rate 55; Glucose Fasting 248 mg/dL (60-99); Potassium 4.8 mmol/L (3.3-5.1); Sodium 137 mmol/L (135-145)
[2024-10-15 11:30] LABS: Vitamin B12 273 pg/mL (200-900)
== END 2024-10-15 08:06 | disposition home or self-care (01) ==
LOC: HO.HMGCLDS 08:05
PROVIDERS: PCP Physician Assistant; Referring Provider Student in an Organized Health Care Education/Training Program; Visit Provider Physician Assistant
DX: D69.6 Thrombocytopenia, unspecified (principal); G62.9 Polyneuropathy, unspecified; E11.65 Type 2 diabetes mellitus with hyperglycemia; Z79.4 Long term (current) use of insulin; E03.9 Hypothyroidism, unspecified
CPT/HCPCS: 36415; 80053; 82607; 85025

== ENCOUNTER 2024-10-17 09:48 | Outpatient (REF) | payer MEDICARE, MEDICAID, SELFPAY ==
--- NOTE | ~2024-10-17 | MM_ITS ---
EXAMINATION: DXA BONE DENSITY AXIAL HISTORY: Estrogen deficiency TECHNIQUE: Legions Dual energy absorptiometry (DEXA) of the lumbar spine, total left hip, and femoral neck was performed. COMPARISON: There are no prior studies for comparison. FINDINGS: The bone mineral density of the lumbar spine from L1-2 is 0.966 with a T-score of -1.7, and a Z-score of -0.2. The bone mineral density of the left total hip is 0.824 with a T-score of -1.5, and a Z-score of 0.1. The bone mineral density of the left femoral neck is 0.786 with a T-score of -1.8, and a Z-score of -0.1. FRACTURE RISK: The FRAX index suggests a risk of major osteoporotic fracture of 12.4%, and of hip fracture 2.9%. MM/XR DEXA axial skeleton IMPRESSION: Based on bone mineral density, and according to World Health Organization (WHO) criteria, the diagnosis is consistent with osteopenia. All bone density values are in grams per centimeter squared (g/cm2). Statistically, 68% of repeat scans fall within 1 SD (+/- 0.010 g/cm2 for AP spine L1-L4) and 1 SD (+/- 0.012 g/cm2 for femur total) FRAX is a trademark of the [employer]'s [place] [facility] Metabolic Bone Disease, a World Health Organization (WHO) Collaborating Center. Electronically signed by: Ace Guo MD 10/17/2024 11:06 AM [facility]
--- OUTSIDE RECORDS SUMMARY | 2024-10-17 11:30 | XMS_ITS | Clinical Summary ---
Author Organization [address] [place] [address] Address [address] [place] [address] Phone Care Team Providers Care Associate Professor Of Physics Name Role Phone Candice Zhang Primary Care Provider [phone] Social History Tobacco Use Types Packs/Day Years [...] 9:45 AM EDT Consult Orthopedic Surgery - [place] [address] [phone] Tano Joyce, DPFly [address] [address] Health Maintenance Due Date Last Done Comments [...] Insurance MEDICARE MEDICA[place] - [place] Care Teams Associate Professor Of Physics Relationship Specialty Start Date End Date Candice Zhang PA [address] [place] [address] PCP - General Physician Field Producer 10/08/24
== END 2024-10-17 09:49 | disposition home or self-care (01) ==
LOC: HO.MAMMO 09:48
PROVIDERS: PCP Physician Assistant; Visit Provider Physician Assistant
DX: Z13.820 Encounter for screening for osteoporosis (principal); Z78.0 Asymptomatic menopausal state
CPT/HCPCS: 77080

== ENCOUNTER → 2024-10-17 10:15 | Outpatient (BNV) | payer MEDICARE, MEDICAID, SELFPAY | PROVIDERS: PCP Physician Assistant; Visit Provider Radiology Diagnostic Radiology | DX: E28.39 Other primary ovarian failure (principal) | CPT/HCPCS: 77080 ==

== ENCOUNTER 2024-10-22 09:30 | Outpatient (AMB) | payer MEDICARE, MEDICAID, SELFPAY ==
--- NOTE | 2024-10-22 10:06 | MHC.AMDMED ---
Intake Intake Visit Reasons: DM Allergies codeine Allergy (Mild, Verified 10/01/24 09:12) heart races shellfish Allergy (Unknown, Uncoded 09/20/24 11:19) joint swelling codiene Allergy (Uncoded 10/01/24 09:11) Unknown HPI Comprehensive Diabetes Asmnt Most Recent Diabetes Results: Microalb/Creat Ratio 111.1 ug/mg cr (<30) H 09/07/24 Cholesterol 180 mg/dL (<200) 09/07/24 HDL Cholesterol 42 mg/dL (>40) 09/07/24 Triglycerides 233 mg/dL (<150) H 09/07/24 Creatinine 0.98 mg/dL (0.5-1.4) 10/15/24 Blood Urea Nitrogen 18 mg/dL (9-16) H 10/15/24 Sodium 137 mmol/L (135-145) 10/15/24 Potassium 4.8 mmol/L (3.3-5.1) 10/15/24 Chloride 101 mmol/L (96-108) 10/15/24 Carbon Dioxide 28 mmol/L (22-29) 10/15/24 Calcium 9.7 mg/dL (8.4-10.2) 10/15/24 AST 30 U/L (5-31) 10/15/24 ALT 29 U/L (0-31) 10/15/24 Total Protein 8.0 g/dL (6.5-8.0) 10/15/24 Albumin 4.0 g/dL (3.5-5.0) 10/15/24 [facility] Medical History (Updated 10/01/24 @ 10:18 by Chen Russell MD) Hypothyroidism Surgical History History of partial hysterectomy History of cholecystectomy Family History Brother Substance abuse Mother Liver cancer Sister Lung cancer Social History Housing: House Alcohol intake: current Patient Tobacco Use Status: Former Tobacco user Cigarette Packs Per Day: 1 Years Smoked: 25 e-Cigarette/Vaping Use: Never Used Second Hand Smoke Exposure: No service: Yes Current occupational status: retired Cognitive needs: No Hearing needs: Yes (hearing loss) Vision needs: No Assessment & Plan Assessment & Plan (1) Uncontrolled type 2 diabetes mellitus with hyperglycemia, with long-term current use of insulin: Code(s): E11.65 - Type 2 diabetes mellitus with hyperglycemia; Z79.4 - assisted (current) use of insulin Plan: Diabetes self-management education and support participation record Assessment/scale: 1= needs instructed? 2= needs review? 3= comprehend keep point? 4= demonstrates understanding/ competent? NC= Not Covered Topics Learning Objective: Initial visit Initial or post srvc Initial or post srvc Initial or post srvc Initial or post srvc Initial or post srvc Post srvc Comments Pre Edu-assessment/plan Outcome or reassess Outcome or reassess Outcome or reassess Outcome or reassess Outcome or reassess Outcome or reassess Diabetes pathophysiology 1 Healthy eating 1 Being active 1 Taking medication 1 Monitoring glucose 1 Acute complication Chronic complicated Lifestyle and healthy coping Diabetes distress in support ?Diabetes pathophysiology: ?Defined diabetes med identify own type of diabetes; list 3 options for treating diabetes Healthy eating: ?Described effect of type, amount and ?timing of food on blood glucose; list 3 methods for planning meal Being active: ?State effect of exercise on blood glucose level Taking medication: ?State effect of diabetes medications on diabetes; name diabetes medications taking, action and side effects Monitoring glucose: ?Identify recommended blood glucose targets and personal target Acute complication: ?List symptoms and treatment of hyper and hypoglycemia, DKA, sick day guidelines and guidelines for severe weather or situations of crisis and diabetes supply manage Chronic complication: ?To find the relationship of blood glucose levels to long-term complications of diabetes in screening and preventative measures Lifestyle and healthy coping: ?Described lifestyle and healthy coping strategies to rule out diabetes self-management Diabetes to stress and support: ?Recognize Diabetes to stress and be able to identified support options Learning objectives: The patient was provided with verbal and written education on the following topics as outlined below. The patient met all learning objectives and was able to verbalize understanding and provide teach back of education topics discussed . The patient was provided with the opportunity to ask questions and all questions were answered. Patient Assessment Assess patient education level/literacy/barriers, patient is retired currently living with roommate. Reports she does not like to cook. Patient's last A1c on 09/06/2024 11% Patient is currently on metformin 1000 mg b.i.d. Trulicity 1.5 mg weekly Lantus 20 units daily Patient denies missing medication, concerned about cost of diabetes devices and medications because she is on fixed income. Discussed with patient calling her insurance to ask about [id number] cost for sensors What is Diabetes? Pathophysiology How the body produces and uses insulin Identify type of DM Risk factors Signs of Diabetes Brief overview of Diabetes Management Monitoring blood sugar Following a meal plan Regular exercise Maintaining a healthy weight Taking medication as needed Members of the care team (PCP, RN, MA, RD, CDE, technician submarine cable equipment) Blood glucose monitoring When/how often to test Target blood sugar ranges Patient at visit to set up an insert [place] 3 sensor with Hope Instructed patient sensors water proof you can shower, or swim do not submerge sensor in water for over 30 minutes Is sensor falls off cannot put back in you need to replace sensor, customer service number given to patient for sensor replacement Sensor placed on the back of Left arm Patient left visit with sensor in warmup Patient requested high alert be turned off Reviewed how to interpret trend arrows Reminded patient that to check finger sticks if symptoms do not match sensor reading. Discussed lag time between finger stick and sensor data.? Instructed patient she should always keep blood glucometer for backup testing if needed Reviewed delay of CGM from fingersticks Reminded pt that if symptoms do not match sensor still needs to check fingersticks. Introduction to Nutrition Importance of healthy diet in managing DM Diet is personalized to individual preference Review patient?s regular diet/food preferences Who prepares meals/does food shopping/ Dining out?/ Barriers? How diet effects glucose Eating 3 balanced meals a day with small, healthy snacks between meals Review food groups Carbohydrates: What is a carbohydrate/Which food/food groups are considered carbohydrates Effect of carbohydrates on blood glucose Portion sizes Reading food labels Basic carb counting (if applicable per nursing assessment) Plate method Meal planning Recommendations: Follow plate method, consistent carbs and read nutritional labels. Smart Goal: Patient will identify current foods that she is eating that contain carbohydrates by next visit Educational Materials: The patient was provided with the following written educational materials: Planning Healthy Meals Handout Patient Response to instructions: Comprehension of Instructions: Fair Readiness to make changes: Contemplation How confident they feel about making changes: Fair Portions of this note were created using voice recognition software, please excuse any words or phrases that may have been misinterpreted. Patient Instructions: Patient instruction: CGM provides information on blood glucose control throughout the day, including hyperglycemia and hypoglycemia. ? Continue to monitor blood glucose as instructed. Follow nutrition guidelines provided. Report any discomfort promptly to health care provider. ?Stay well-hydrated. You can bathe ,shower, swim and exercise while wearing the glucose sensor. Do not submerge glucose sensor in water for more than 30 minutes Include regular daily activity. ADA recommends 30 minutes of exercise 5 days a week. Weight loss talk to PCP or Server Assistant before starting new plan. Test blood sugar as directed; Fasting and 2hpp largest meal. Watch trends in results. Utilize results and to assess how food, physical activity and medications affect blood sugar results. Bring glucometer or CGM to next visit. Be knowledgeable about diabetes medication, its action, side effects, efficacy, toxicity, prescribed dosage, appropriate timing and frequency of administration, effect of missed and delayed doses and instructions for storage, travel and safety. Problem solving techniques to monitor hypo/hyperglycemia episodes and treatments. Reduce risk reduction behaviors, smoking cessation, regular eye, foot and dental examinations. Coding Level of Care Code Est Pt Level 1 (29649) Diagnoses Uncontrolled type 2 diabetes mellitus with hyperglycemia, with long-term current use of insulin E11.65; Z79.4
--- OUTSIDE RECORDS SUMMARY | 2024-10-22 10:31 | XMS_ITS | Clinical Summary ---
Author Organization [address] [place] [address] Address [address] [place] [address] Phone Care Team Providers Care Tanbark Laborer Name Role Phone Candice Zhang Primary Care Provider [phone] Social History Tobacco Use Types Packs/Day Years [...] 9:45 AM EDT Consult Orthopedic Surgery - [place] [address] [phone] Tano Joyce, DPFly [address] [address] Health Maintenance Due Date Last Done Comments [...] Insurance MEDICARE MED[place]ID - [place] Care Teams Tanbark Laborer Relationship Specialty Start Date End Date Candice Zhang PA [address] [place] [address] PCP - General Physician Basket Assembler 10/08/24
== END 2024-10-22 10:17 | disposition home or self-care (01) ==
PROVIDERS: PCP Physician Assistant; Visit Provider Registered Nurse Diabetes Educator
DX: E11.65 Type 2 diabetes mellitus with hyperglycemia (principal); Z79.4 Long term (current) use of insulin

== ENCOUNTER → 2024-10-22 09:30 | Outpatient (BNVA) | payer MEDICARE, MEDICAID, SELFPAY | PROVIDERS: PCP Physician Assistant; Visit Provider Registered Nurse Diabetes Educator | DX: E11.65 Type 2 diabetes mellitus with hyperglycemia (principal); Z79.4 Long term (current) use of insulin | CPT/HCPCS: 99211 ==

== ENCOUNTER 2024-10-24 08:30 | Outpatient (AMB) | payer MEDICARE, MEDICAID, SELFPAY ==
--- NOTE | 2024-10-24 08:42 | MHC.PC.OV ---
Vital Signs 10/24/24 08:46 Height 5 ft 1.89 in Weight 172 lb BMI 31.6 BP 128/74 Blood Pressure Location Lt brachial Position Sitting Respiration 14 Pulse 69 Pulse Source Pulse Oximeter Pulse Oximetry (%) 99 Oxygen Delivery Method Room Air Intake Visit Reasons: dm and labs Intake Note: Follow up diabetes. Contract Negotiation Specialist Required: No Allergies codeine Allergy (Mild, Verified 10/24/24 08:45) heart races shellfish Allergy (Unknown, Uncoded 10/24/24 08:45) joint swelling codiene Allergy (Uncoded 10/24/24 08:45) Unknown Medication List - Last Reconciled 10/24/24 by Candice Zhang PA-C 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 meter,continuous (FreeStyle Everton 3 Balko) Use daily As directed to monitor blood glucose 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 sensor (FreeStyle Everton 3 Sensor device) Apply every 14 days As directed to monitor blood glucose 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 sensor (FreeStyle Everton 3 Plus Sensor device) Use daily As directed to monitor glucose cetirizine (Zyrtec) 10 mg PO DAILY [coqu10 .] fluticasone propionate 50 mcg/actuation (Flonase Allergy Relief) 1 spray intranasal BID glucose (Dex4 Glucose) 16 grams (4 x 4 gram) PO Q15M PRN insulin glargine-yfgn 20 units (0.2 mL) subcut DAILY levothyroxine 50 mcg PO DAILY metformin 1,000 mg PO BID 90 days metoprolol succinate ER 100 mg PO DAILY pen needle, diabetic (BD Desi 2nd Gen Pen Needle) Use BID As directed rosuvastatin 10 mg PO DAILY triamcinolone acetonide 0.025% 1 appl topical BID Tobacco use date assessed: 10/24/24 Dental Screening Dental Screen Date: 09/06/24 HPI dm and labs HPI Details Patient is a 73-year-old female with a significant past medical history of cirrhosis, hypertension, depression, hyperlipidemia and type 2 diabetes presenting today for a follow up. She is relatively new to me and was seen recently to establish care after moving from [place] and not being seen for quite some time. Endo: She was diagnosed with diabetes around 1994. Her last A1c was 11. She is on Lantus 20 units, Trulicity 1.5 mg weekly and metformin 1000 mg twice a day. She monitors bs once a day and its around 250. She recently had diabetic Education and saw endocrinology about a month ago. She would correct low blood sugar with orange juice but states that she never has any low blood sugars. She feels fine with her blood sugars being high. cgm- Hyperglycemic 100%, 0% hypoglycemic -she has only been wearing the CGM for a few days. -in the last few days she states that she has been much better with her diet. She is limiting the amount of cookies that she is eating and she is eating more salads. Has an appointment with Endocrine in the beginning of November. CV: Blood pressure today in the office is 128/72. She is currently on metoprolol 100 mg daily. Not on an PEDRO-inhibitor. Cholesterol is controlled with Crestor 10 mg. 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 Mother had liver ca and she did not drink alcohol. Pt states she rarely drinks alcohol. Patient states that she had to move from [place] before a workup was done due to family drama. Mammo: does not want anymore Colonoscopy: a couple years ago Bone density: osteopenia- 2024 Sister had lung cancer Maternal grandmother had pancreatic ca Mother had liver ca - not a drinker [facility] Medical History (Updated 10/24/24 @ 09:17 by Candice Zhang PA-C) Hypothyroidism Surgical History History of partial hysterectomy History of cholecystectomy Family History Brother Substance abuse Mother Liver cancer Sister Lung cancer Social History Housing: House Alcohol intake: current Patient Tobacco Use Status: Former Tobacco user Cigarette Packs Per Day: 1 Years Smoked: 25 e-Cigarette/Vaping Use: Never Used Second Hand Smoke Exposure: No service: Yes Current occupational status: retired Cognitive needs: No Hearing needs: Yes (hearing loss) Vision needs: No Questionnaire Thrive Questionnaire Date Thrive assessed: 08/30/24 I am a: Patient What is your living situation today?: I have a steady place to live Within the past 12 months, did the food you bought not last and you didn't have the money to get more?: Never true Within the past 12 months, did you worry whether your food would run out before you got money to buy more?: Never true Do you have trouble paying for medicines?: No Do you have trouble getting transportation to medical appointments?: No Do you have trouble paying your heating and electricity bill?: No Do you have trouble taking care of your child, family member or friend?: No Do you have trouble with day-to-day activities such as bathing, preparing meals, shopping, managing finances, etc.?: No Are you currently unemployed and looking for a job?: No Are you interested in more education?: No Please select the resources that you would like help with: None Currently or been in a relationship where the following occur: No concerns reported THRIVE Score: 0 RAFAELA-7 AMB Questionnaire RAFAELA-7 Date RAFAELA - 7 assessed: 09/06/24 Source: Developed by Drs. Ace Juan, Joy Green, Tanmay Lopez and colleagues, with an educational radha from [employer]. Physical exam (Primary Care) Vital Signs: Last Vital Signs Pulse 69 10/24/24 08:46 Resp 14 10/24/24 08:46 BP 128/74 10/24/24 08:46 Pulse Ox 99 10/24/24 08:46 Oxygen Delivery Method Room Air 10/24/24 08:46 BMI result Body Mass Index 31.6 Tobacco/Smoking Status: Tobacco use Status Tobacco use date assessed 10/24/24 10/24/24 08:48 Patient Tobacco Use Status Former Tobacco user 10/24/24 08:43 e-Cigarette/Vaping Use Never Used 10/24/24 08:43 Thrive Assessment: Date of Thrive Assessment Date Thrive assessed 08/30/24 10/24/24 08:43 Currently or been in a relationship where the following occur: No concerns reported Const Orientation/consciousness: patient oriented x3 HENMT Ears: hearing grossly normal bilaterally Neck Thyroid: Thyroid normal Lymphatic: no lymphadenopathy noted Resp Auscultation: clear to auscultation bilaterally Cardio Rate: regular rate Rhythm: regular rhythm Heart sounds: S1 normal heart sound present and S2 normal heart sound present GI Inspection: Yes normal to inspection Palpation (GI): Soft to palpation and Other GI palpation findings present (nontender, no cva tenderness) Auscultation: normoactive bowel sounds Rectal Exam - Female: deferred Skin General skin exam: no rashes or lesions noted Neuro General: patient oriented x3, gait normal and no focal motor deficits Results Reviewed Results Reviewed: Laboratory Tests 09/06/24 09/07/24 09/07/24 16:28 08:32 08:35 WBC 5.1 RBC 5.10 Hgb 13.8 Hct 41.6 Plt Count 81 L Sodium 137 Potassium 4.7 Chloride 103 Carbon Dioxide 28 Anion Gap BUN 21 H Creatinine 0.97 Estimated GFR 56 Fasting Glucose 313 H Hgb A1c (Clinic) 11.0 H Calcium 9.6 Total Bilirubin 0.6 AST 34 H ALT 36 H Alkaline Phosphatase 109 B-Natriuretic Peptide Total Protein 7.6 Albumin 3.9 Triglycerides 233 H Cholesterol 180 LDL Cholesterol, Calc 92 HDL Cholesterol 42 Vitamin B12 TSH 1.87 Urine Creatinine 72.85 Urine Microalbumin 81.0 Microalb/Creat Ratio 111.1 H 09/07/24 10/15/24 08:37 08:10 WBC 5.2 RBC 5.44 Hgb 14.4 Hct 44.5 Plt Count 113 L D Sodium 137 Potassium 4.8 Chloride 101 Carbon Dioxide 28 Anion Gap 13 BUN 18 H Creatinine 0.98 Estimated GFR 55 Fasting Glucose 248 H Hgb A1c (Clinic) Calcium 9.7 Total Bilirubin 0.7 AST 30 ALT 29 Alkaline Phosphatase 102 B-Natriuretic Peptide 23 Total Protein 8.0 Albumin 4.0 Triglycerides Cholesterol LDL Cholesterol, Calc HDL Cholesterol Vitamin B12 273 TSH Urine Creatinine Urine Microalbumin Microalb/Creat Ratio Coding Level of Care Code Est Pt Level 4 (87062) Complex EM visit Add On G2211 Diagnoses Cirrhosis K74.60 Thrombocytopenia D69.6 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 Labs stable. We will monitor. 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 (5) Uncontrolled type 2 diabetes mellitus with hyperglycemia, with long-term current use of insulin: Code(s): E11.65 - Type 2 diabetes mellitus with hyperglycemia; Z79.4 - custodial (current) use of insulin Category: Medical Plan: increase lantus to 30 units increased trulicity to 3 mg weekly today continue metformin (6) Hyperlipidemia: Code(s): E78.5 - Hyperlipidemia, unspecified Category: Medical Qualifiers: Hyperlipidemia type: mixed hyperlipidemia Qualified Code(s): E78.2 - Mixed hyperlipidemia Plan: continue crestor (7) CKD stage 3 due to type 2 diabetes mellitus: Code(s): E11.22 - Type 2 diabetes mellitus with diabetic chronic kidney disease; N18.30 - Chronic kidney disease, stage 3 unspecified Category: Medical Plan: We will monitor. Advised to avoid NSAIDs. Feels very busy right now with all of these doctors appointments and does not want to see anyone additional. Orders: Orders US abdomen comp w elastography Today D69.6 - Thrombocytopenia, unspecified, K74.60 - Unspecified cirrhosis of liver Complete Blood Count Auto Diff Today D69.6 - Thrombocytopenia, unspecified, E06.3 - Autoimmune thyroiditis, E11.22 - Type 2 diabetes mellitus with diabetic chronic kidney disease, E11.65 - Type 2 diabetes mellitus with hyperglycemia, E78.2 - Mixed hyperlipidemia, K74.60 - Unspecified cirrhosis of liver, N18.30 - Chronic kidney disease, stage 3 unspecified, Z79.4 - custodial (current) use of insulin Comprehensive [place]. Panel Fast Today D69.6 - Thrombocytopenia, unspecified, E06.3 - Autoimmune thyroiditis, E11.22 - Type 2 diabetes mellitus with diabetic chronic kidney disease, E11.65 - Type 2 diabetes mellitus with hyperglycemia, E78.2 - Mixed hyperlipidemia, K74.60 - Unspecified cirrhosis of liver, N18.30 - Chronic kidney disease, stage 3 unspecified, Z79.4 - custodial (current) use of insulin TSH reflex Free T4 Today D69.6 - Thrombocytopenia, unspecified, E06.3 - Autoimmune thyroiditis, E11.22 - Type 2 diabetes mellitus with diabetic chronic kidney disease, E11.65 - Type 2 diabetes mellitus with hyperglycemia, E78.2 - Mixed hyperlipidemia, K74.60 - Unspecified cirrhosis of liver, N18.30 - Chronic kidney disease, stage 3 unspecified, Z79.4 - termination clerk (current) use of insulin Microalbumin, Random (w Creat) Today D69.6 - Thrombocytopenia, unspecified, E06.3 - Autoimmune thyroiditis, E11.22 - Type 2 diabetes mellitus with diabetic chronic kidney disease, E11.65 - Type 2 diabetes mellitus with hyperglycemia, E78.2 - Mixed hyperlipidemia, K74.60 - Unspecified cirrhosis of liver, N18.30 - Chronic kidney disease, stage 3 unspecified, Z79.4 - custodial (current) use of insulin Medications: New dulaglutide (Trulicity) 3 mg (0.5 mL) subcut QWEEK 2 mL 3RF Changed From insulin glargine-yfgn 20 units (0.2 mL) subcut DAILY 15 mL 2RF To insulin glargine-yfgn 30 units (0.3 mL) subcut DAILY 15 mL 2RF
[2024-10-24 08:46] VITALS: BP 128/74; PULSE 69; RESP 14; O2SAT 99; BMI 31.6
--- OUTSIDE RECORDS SUMMARY | 2024-10-24 09:04 | XMS_ITS | Clinical Summary ---
Author Organization [address] [place] [address] Address [address] [place] [address] Phone Care Team Providers Care Snow Removal Supervisor Name Role Phone Candice Zhang Primary Care Provider [phone] Social History Tobacco Use Types Packs/Day Years [...] 9:45 AM EDT Consult Orthopedic Surgery - [place] [phone] [phone] Tano Joyce, DPFly [address] [address] Health Maintenance Due Date Last Done Comments [...] Insurance MEDICARE MEDICAID - [place] Care Teams Snow Removal Supervisor Relationship Specialty Start Date End Date Candice Zhang PA [address] [place] [address] PCP - General Physician Net Application Architect 10/08/24
== END 2024-10-24 09:21 | disposition home or self-care (01) ==
PROVIDERS: PCP Physician Assistant; Visit Provider Physician Assistant
DX: I12.9 Hypertensive chronic kidney disease with stage 1 through stage 4 chronic kidney disease, or unspecified chronic kidney disease (principal); K74.60 Unspecified cirrhosis of liver; E11.22 Type 2 diabetes mellitus with diabetic chronic kidney disease; N18.30 Chronic kidney disease, stage 3 unspecified; D69.6 Thrombocytopenia, unspecified; E11.65 Type 2 diabetes mellitus with hyperglycemia; Z79.4 Long term (current) use of insulin; E06.3 Autoimmune thyroiditis; E78.2 Mixed hyperlipidemia

== ENCOUNTER → 2024-10-24 08:30 | Outpatient (BNVA) | payer MEDICARE, MEDICAID, SELFPAY | PROVIDERS: PCP Physician Assistant; Visit Provider Physician Assistant | DX: K74.60 Unspecified cirrhosis of liver (principal); D69.6 Thrombocytopenia, unspecified; E06.3 Autoimmune thyroiditis; I12.9 Hypertensive chronic kidney disease with stage 1 through stage 4 chronic kidney disease, or unspecified chronic kidney disease; E11.22 Type 2 diabetes mellitus with diabetic chronic kidney disease; N18.30 Chronic kidney disease, stage 3 unspecified; E78.2 Mixed hyperlipidemia; E11.65 Type 2 diabetes mellitus with hyperglycemia; Z79.4 Long term (current) use of insulin | CPT/HCPCS: 99212 ==

== ENCOUNTER 2024-11-21 09:26 | Outpatient (AMB) | payer MEDICARE, MEDICAID, SELFPAY ==
--- NOTE | 2024-11-21 10:16 | A.OFFVIS_ITS ---
Intake Intake Visit Reasons: 60 min [employer] Required: No Accompanied by: Self / Same As Patient Allergies codeine Allergy (Mild, Verified 10/24/24 08:45) heart races shellfish Allergy (Unknown, Uncoded 10/24/24 08:45) joint swelling codiene Allergy (Uncoded 10/24/24 08:45) Unknown HPI Comprehensive Diabetes Asmnt Most Recent Diabetes Results: Microalb/Creat Ratio 111.1 ug/mg cr (<30) H 09/07/24 Cholesterol 180 mg/dL (<200) 09/07/24 HDL Cholesterol 42 mg/dL (>40) 09/07/24 Triglycerides 233 mg/dL (<150) H 09/07/24 Creatinine 0.98 mg/dL (0.5-1.4) 10/15/24 Blood Urea Nitrogen 18 mg/dL (9-16) H 10/15/24 Sodium 137 mmol/L (135-145) 10/15/24 Potassium 4.8 mmol/L (3.3-5.1) 10/15/24 Chloride 101 mmol/L (96-108) 10/15/24 Carbon Dioxide 28 mmol/L (22-29) 10/15/24 Calcium 9.7 mg/dL (8.4-10.2) 10/15/24 AST 30 U/L (5-31) 10/15/24 ALT 29 U/L (0-31) 10/15/24 Total Protein 8.0 g/dL (6.5-8.0) 10/15/24 Albumin 4.0 g/dL (3.5-5.0) 10/15/24 COUNTS INCLUDE 234 BEDS AT [facility] Medical History (Updated 10/24/24 @ 09:17 by Candice Zhang PA-C) Hypothyroidism Surgical History History of partial hysterectomy History of cholecystectomy Family History Brother Substance abuse Mother Liver cancer Sister Lung cancer Social History Housing: House Alcohol intake: current Patient Tobacco Use Status: Former Tobacco user Cigarette Packs Per Day: 1 Years Smoked: 25 e-Cigarette/Vaping Use: Never Used Second Hand Smoke Exposure: No service: Yes Current occupational status: retired Cognitive needs: No Hearing needs: Yes (hearing loss) Vision needs: No Assessment & Plan Assessment & Plan (1) Uncontrolled type 2 diabetes mellitus with hyperglycemia, with long-term current use of insulin: Code(s): E11.65 - Type 2 diabetes mellitus with hyperglycemia; Z79.4 - ekg monitor tech (current) use of insulin Plan: Diabetes self-management education and support participation record Assessment/scale: 1= needs instructed? 2= needs review? 3= comprehend keep point? 4= demonstrates understanding/ competent? NC= Not Covered Topics Learning Objective: Initial visit Initial or post srvc Initial or post srvc Initial or post srvc Initial or post srvc Initial or post srvc Post srvc Comments Pre Edu-assessment/plan Outcome or reassess Outcome or reassess Outcome or reassess Outcome or reassess Outcome or reassess Outcome or reassess Diabetes pathophysiology 1 3 Healthy eating 1 2 Being active 1 2 Taking medication 1 3 Monitoring glucose 1 3 Acute complication 1 Chronic complicated 1 Lifestyle and healthy coping 1 Diabetes distress in support 1 ?Diabetes pathophysiology: ?Defined diabetes med identify own type of diabetes; list 3 options for treating diabetes Healthy eating: ?Described effect of type, amount and ?timing of food on blood glucose; list 3 methods for planning meal Being active: ?State effect of exercise on blood glucose level Taking medication: ?State effect of diabetes medications on diabetes; name diabetes medications taking, action and side effects Monitoring glucose: ?Identify recommended blood glucose targets and personal target Acute complication: ?List symptoms and treatment of hyper and hypoglycemia, DKA, sick day guidelines and guidelines for severe weather or situations of crisis and diabetes supply manage Chronic complication: ?To find the relationship of blood glucose levels to long- term complications of diabetes in screening and preventative measures Lifestyle and healthy coping: ?Described lifestyle and healthy coping strategies to rule out diabetes self-management Diabetes to stress and support: ?Recognize Diabetes to stress and be able to identified support options Learning objectives: The patient was provided with verbal and written education on the following topics as outlined below. Assess patient education level/literacy/barriers, patient expressed frustration at today's visit she feels overwhelmed by the amount of data from the [employer] Patient also reports that she is paying a co-pay of 40 dollars a month for sensors. At last visit I suggested she contact insurance company to discuss co- pay, at today's visit she reports that she has not done that yet. Everton download had incorrect dates so it was missing glucose data Reviewed reports in surgeon/president Average glucose for the past 14 days 199 mg/dL Above target 59% At target 41% Below target 0% Discussed with patient the improvement of an average glucose of 199 mg per mg/dL verses the average glucose of an A1c of 11%. Patient questions/concerns patient reports after reducing carbohydrate portions she feels hungry frequently, she reports she is going to bed at night without snacking and feeling hungry, she believes this is interrupting her sleep. Printed low carb snack list for patient, recommended to patient she eat high- protein, high-fiber low carb snacks before bed if she is feeling hungry The patient met all learning objectives and was able to verbalize understanding and provide teach back of education topics discussed . The patient was provided with the opportunity to ask questions and all questions were answered. Topics covered in today?s session included: Medications (If applicable) * Name of medication? * Dosing/administration instructions? * Mechanism of action? * Potential side effects? * Potential adverse reaction and appropriate treatment? * Review onset, peak, duration Assess for concerns re: insurance coverage, cost, barriers to compliance Insulin/Injectables (If applicable) * Storage/care of insulin?? * Injection sites? * Site rotation? * Onset, peak, duration * Drawing up insulin? * Injecting insulin/other injectables? * Sharps disposal Continuous blood glucose monitoring (if applicable) Hypoglycemia and Hyperglycemia * Signs and symptoms? * Causes?? * Treatment? * Preventing hypoglycemia? * When to seek medical attention Target Goals: * Blood glucose targets and how you feel when your blood glucose is in and out of your target ranges. * Monitoring and knowing your A1C. * What can make blood glucose go up and down and preventing high and low blood glucose. * Review of blood sugar targets in expected goal range and outside of expected goal range. * Problem solving and preventing hyper/hypoglycemia. * Sick day management of diabetes. * Using blood sugar results in decision making process in managing diabetes. ?Patient was receptive to information provided and participated in the discussion. Asked?appropriate questions and demonstrated good understanding of the topics discussed.? ? Educational Materials: The patient was provided with the following written educational materials: Target Goal handout Smart Goal Assessment:? Patient will identify foods in her current meal plan that contain carbohydrates Pt met goal 50% New Smart Goal: Patient will increase physical activity 5-10 minutes 5 days a week, patient reports she and her roommate have discussed enrolling in exercise program at [facility] Patient Response to instructions: Comprehension of Instructions: poor Readiness to make changes:? Contemplation How confident they feel about making changes: fair Portions of this note were created using voice recognition software, please excuse any words or phrases that may have been misinterpreted. Patient Instructions: Follow-up with dietitian today Follow-up with Dr. Russell on 12/03/2024 Follow-up with family living educator in 2 months Coding Level of Care Code Est Pt Level 1 (33536) Diagnoses Uncontrolled type 2 diabetes mellitus with hyperglycemia, with long-term current use of insulin E11.65; Z79.4
--- OUTSIDE RECORDS SUMMARY | 2024-11-21 10:34 | XMS_ITS | Clinical Summary ---
Author Organization [address] [place] [address] Address [address] [place] [address] Phone Care Team Providers Care Applier Name Role Phone Candice Zhang Primary Care Provider Social History Tobacco Use Types Packs/Day Years [...] 9:45 AM EDT Consult Orthopedic Surgery - [place] [phone] [phone] Tano Joyce, DPFly [address] [phone] Health Maintenance Due Date Last Done Comments Diabetes: Annual GFR (Glomer ular Filtration Rate) 1948 Diabetes: Annual Foot Exam 1958 Diabetes: Annual Retina Eye Exam 1958 DTaP,Tdap,and Td Vaccines (1 - Tdap) 11/22/1967 Pneumococcal Vaccine: 50+ Ye ars (1 of 2 - PCV) 11/22/1967 Zoster Vaccines (1 of 2) 1998 RSV Immunization Adult Patie nts (1 - 1-dose 75+ series) 11/22/2023 COVID-19 Vaccine ( - 2023-2 5 season) 2024 Influenza Vaccine [...] Insurance MEDICARE MEDICAID - [place] Care Teams Applier Relationship Specialty Start Date End Date Candice Zhang PA [address] [place] [address] PCP - General Physician Kindergarten Tutor 10/08/24
== END 2024-11-21 11:25 | disposition home or self-care (01) ==
LOC: HO.ENCR 09:26
PROVIDERS: PCP Physician Assistant; Visit Provider Registered Nurse Diabetes Educator
DX: E11.65 Type 2 diabetes mellitus with hyperglycemia (principal); Z79.4 Long term (current) use of insulin

== ENCOUNTER 2024-11-21 09:26 | Outpatient (AMB) | payer MEDICARE, MEDICAID, SELFPAY ==
--- NOTE | 2024-11-21 10:59 | A.OFFVIS_ITS ---
VS Expanded 11/21/24 13:05 Height 5 ft 1.89 in Weight 175 lb 2.35 oz BMI 32.1 Intake Visit Reasons: T2DM Allergies codeine Allergy (Mild, Verified 10/24/24 08:45) heart races shellfish Allergy (Unknown, Uncoded 10/24/24 08:45) joint swelling codiene Allergy (Uncoded 10/24/24 08:45) Unknown Nutrition Presentation Details: Pt presents for MNT f/u for T2DM [facility], Pt reports having good support from a friend and participates in some activities at the center Reports having 3 meals/day , Reports Not happy with diet modifications as she feels she is now eating what she does not like (re: more salads and reducing sugars/pastries) B: bagel with cream cheese, coffee, unflavored creamer , sugar L: salad with protein ,water or juice D: mashed potato/chicken or beef and [place] sprouts snacks: cracker, cookies ,ice cream, pastries physical activity : ADL etoh/smoking:denies BS Monitoring Most Recent Diabetes Results: Creatinine 0.98 mg/dL (0.5-1.4) 10/15/24 Blood Urea Nitrogen 18 mg/dL (9-16) H 10/15/24 Sodium 137 mmol/L (135-145) 10/15/24 Potassium 4.8 mmol/L (3.3-5.1) 10/15/24 Chloride 101 mmol/L (96-108) 10/15/24 Carbon Dioxide 28 mmol/L (22-29) 10/15/24 Calcium 9.7 mg/dL (8.4-10.2) 10/15/24 AST 30 U/L (5-31) 10/15/24 ALT 29 U/L (0-31) 10/15/24 Total Protein 8.0 g/dL (6.5-8.0) 10/15/24 Albumin 4.0 g/dL (3.5-5.0) 10/15/24 [facility] Medical History (Updated 10/24/24 @ 09:17 by Candice Zhang PA-C) Hypothyroidism Surgical History History of partial hysterectomy History of cholecystectomy Family History Brother Substance abuse Mother Liver cancer Sister Lung cancer Social History Housing: House Alcohol intake: current Patient Tobacco Use Status: Former Tobacco user Cigarette Packs Per Day: 1 Years Smoked: 25 e-Cigarette/Vaping Use: Never Used Second Hand Smoke Exposure: No service: Yes Current occupational status: retired Cognitive needs: No Hearing needs: Yes (hearing loss) Vision needs: No Assessment & Plan Assessment & Plan (1) Uncontrolled type 2 diabetes mellitus with hyperglycemia, with long-term current use of insulin: Code(s): E11.65 - Type 2 diabetes mellitus with hyperglycemia; Z79.4 - intermediate (current) use of insulin Category: Medical Plan: Wt: 80 Kg ( 11/13 ), 79.5 (12/14) Est kcal needs as per MSJ: 9559-6575 (40% carb, 30% protein/fat) Est fluid needs as per 25-30 ml/d: 2400 Est prot per day as per 1 g/kg bw: 80 Recommend fiber intake : 8-10 g per day and gradually increase to 25-28 g per day for women and 35-38 g for men or as tolerated Recommend sodium intake per day : less than 2000 mg Educated patient on: ( R = reviewed V = verbalizes understanding N/R = needs review N/A = not applicable * Food sources of carbohydrate, adequate serving sizes and its role in various health conditions: R * Differences between complex carbohydrates a simple carbohydrates, role of fiber in diet: R * Lean protein sources of foods: R * Differences between types of fats and role in diet (mono on saturated fat fatty acids, saturated fatty acids, trans fats): R V N/R * Food sources of sodium in salt and healthy modifications for heart health in kidney health: R V R/V * Vitamins and minerals: R V N/R * Healthy plate method concept: R * Physical activity: Benefits a precaution: R V N/R * Hypoglycemia protocol (rule of 15): R V N/R * Dietary prevention of Hyperglycemia: R Patient Instructions: Combine flavors you enjoy with lean protein foods: example * try chobani flip yogurts * Have 1 cookie with 2/3 cup of cottage cheese * try cucumbers with cream cheese see list of options r Keep hydrated by having water, juice diluted with water, decaf tea, herb/fruit insufed water Coding Level of Care Code Nutr Indiv Subseq (77455) Diagnoses Uncontrolled type 2 diabetes mellitus with hyperglycemia, with long-term current use of insulin E11.65; Z79.4 Time Spent (min) 30
[2024-11-21 13:05] VITALS: BMI 32.1
== END 2024-11-21 11:25 | disposition home or self-care (01) ==
LOC: HO.ENCR 09:27
PROVIDERS: PCP Physician Assistant; Visit Provider Dietitian, Registered
DX: E11.65 Type 2 diabetes mellitus with hyperglycemia (principal); Z79.4 Long term (current) use of insulin

== ENCOUNTER → 2024-11-21 09:26 | Outpatient (BNVA) | payer MEDICARE, MEDICAID, SELFPAY | PROVIDERS: PCP Physician Assistant; Visit Provider Registered Nurse Diabetes Educator | DX: E11.65 Type 2 diabetes mellitus with hyperglycemia (principal); Z79.4 Long term (current) use of insulin | CPT/HCPCS: 97803; 99211 ==

== ENCOUNTER 2024-12-03 09:27 | Outpatient (AMB) | payer MEDICARE, MEDICAID, SELFPAY ==
--- NOTE | 2024-12-03 09:31 | MHC.OFFVIS ---
Vital Signs 12/03/24 09:32 Height 5 ft 1.89 in Weight 168 lb 13.985 oz BMI 31.0 BP 160/78 H Blood Pressure Location Lt brachial Position Sitting Pulse 81 Pulse Source Pulse Oximeter Pulse Oximetry (%) 98 Oxygen Delivery Method Room Air Intake Visit Reasons: DM Intake Note: Patient present today for Type 2 Diabetes Mellitus Last Diabetic eye exam: Last Podiatry Visit: Has upcoming appt next week Random Glucose: 213 mg/dl HgA1C: 8.9% Packer Fuser Required: No Accompanied by: Self / Same As Patient Allergies codeine Allergy (Mild, Verified 12/03/24 09:37) heart races shellfish Allergy (Unknown, Uncoded 12/03/24 09:37) joint swelling codiene Allergy (Uncoded 12/03/24 09:37) Unknown Medication List - Last Reconciled 12/03/24 by Chen Russell MD 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 sensor (FreeStyle Everton 3 Sensor device) Apply every 14 days As directed to monitor blood glucose 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 sensor (FreeStyle Everton 3 Plus Sensor device) Use daily As directed to monitor glucose 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,pharmacist in charge,cont (FreeStyle Everton 3 [place]) Use daily As directed to monitor blood glucose cetirizine (Zyrtec) 10 mg PO DAILY [coqu10 .] dulaglutide (Trulicity) 3 mg (0.5 mL) subcut QWEEK fluticasone propionate 50 mcg/actuation (Flonase Allergy Relief) 1 spray intranasal BID glucose (Dex4 Glucose) 16 grams (4 x 4 gram) PO Q15M PRN insulin glargine (Lantus Solostar U-100 Insulin) 30 units (0.3 mL) subcut QPM levothyroxine 50 mcg PO DAILY metformin 1,000 mg PO BID 90 days metoprolol succinate ER 100 mg PO DAILY pen needle, diabetic (BD Desi 2nd Gen Pen Needle) Use BID As directed rosuvastatin 10 mg PO DAILY triamcinolone acetonide 0.025% 1 appl topical BID HPI Comments Details: 73-year-old female here today for fup of type 2 diabetes mellitus. History of diabetes Diagnosed in her 50 s with Type 2 DM Prior therapy: Current regimen: Lantus 30 units (increased by PCP 10/24/24) Metformin 1000 mg BID Trulicity 3 mg weekly (increased by PCP 10/24/24) Prior meds Glipizide 10 mg BID discontinued in Oct 16 to avoid risk of hypoglycemia A1c 11% Aug 2024 POC a1c 8.9 % November 2024 Random Glucose: 213 mg/dl 7 30 AM coffee with cookie and =slice of watermelon 3 meals a day No soda , no sugary drinks \Snacks sometimes Lunch pork chops with rice and broccoli Denies any symptoms of hyperglycemia including polyphagia, polyuria, polydipsia. Denies any hypoglycemic symptoms. CGM data downloaded from November 22 to 12/05/2024 for [employer] Everton 3+ Time CGM activity 2% Average glucose 201 mg/dL G mi 8.1% Glucose variability 20.4% Within target range 38% High 47% Very high 15% Low 0% Interpretation: Based on G IN, patient has had improvement in blood sugars compared to her A1c of 11% in August 2024, however still mostly above target range with hyperglycemia on both postprandially as well as fasting. Exercise none Complications Last Diabetic eye exam: 10/2024, no retinopathy Last Podiatry Visit: Has upcoming appt next week Neuropathy: numbness burning in hands Kidney disease: has microalbuminuria 111 ratio Aug 2024 Macrovascular complications: No history of macrovascular complications. Statin:rosuvatstain 20 mg daily LDL 92 mg /dl Aug 2024 PEDRO/ARB: none Exercise: walking a bit now Diet control: none saw CDE 11/21/24 saw instruments sales representative 11/21/24 He has never had any hospitalizations for hyperglycemia/hypoglycemia. Physical exam General: sitting comfortably in no acute distress HEENT: normocephalic/atraumatic, EOM intact, moist oral mucosa Neck: supple, Cardiac: normal heart sounds Pulm: normal breath sounds B/L, no added breath sounds Abd: not distended, no tenderness Extremities: Bilateral pitting edema noted Neuro: AAO x3, Speech: normal, no facial droop, moving all 4 extremities Foot exam: checked 10/01/24 intact sensation to monofilament, intact pulses, intact vibration Laboratory Tests 09/06/24 09/07/24 09/07/24 16:28 08:32 08:35 Plt Count 81 L Creatinine 0.97 Estimated GFR 56 Glucose (Clinic) Hgb A1c (Clinic) 11.0 H AST 34 H ALT 36 H B-Natriuretic Peptide Triglycerides 233 H Cholesterol 180 LDL Cholesterol, Calc 92 HDL Cholesterol 42 Urine Creatinine 72.85 Urine Microalbumin 81.0 Microalb/Creat Ratio 111.1 H 09/07/24 10/01/24 08:37 09:22 Plt Count Creatinine Estimated GFR Glucose (Clinic) 270 H Hgb A1c (Clinic) AST ALT B-Natriuretic Peptide 23 Triglycerides Cholesterol LDL Cholesterol, Calc HDL Cholesterol Urine Creatinine Urine Microalbumin Microalb/Creat Ratio Laboratory Tests 09/07/24 09/07/24 10/15/24 08:32 08:35 08:10 Plt Count 113 L D Potassium 4.8 Creatinine 0.98 Estimated GFR 55 Fasting Glucose 248 H AST 30 ALT 29 Albumin 4.0 Vitamin B12 273 TSH 1.87 Urine Creatinine 72.85 Urine Microalbumin 81.0 Microalb/Creat Ratio 111.1 H [facility] Medical History (Updated 10/24/24 @ 09:17 by Candice Zhang PA-C) Hypothyroidism Surgical History History of partial hysterectomy History of cholecystectomy Family History Brother Substance abuse Mother Liver cancer Sister Lung cancer Social History Housing: House Alcohol intake: current Patient Tobacco Use Status: Former Tobacco user Cigarette Packs Per Day: 1 Years Smoked: 25 e-Cigarette/Vaping Use: Never Used Second Hand Smoke Exposure: No service: Yes Current occupational status: retired Cognitive needs: No Hearing needs: Yes (hearing loss) Vision needs: No Physical Exam Vital Signs: Last Vital Signs Pulse 81 12/03/24 09:32 BP 160/78 H 12/03/24 09:32 Pulse Ox 98 12/03/24 09:32 Oxygen Delivery Method Room Air 12/03/24 09:32 BMI result Body Mass Index 31.0 Office Procedures Glucose Monitoring Details Details: see HPI 28063 - Glucose monitoring, continuous-physician I&R Procedure code (CPT) selection complete Results AMB Hemoglobin A1c AMB Hemoglobin A1c 8.9 % Last Edit by ADAL Barrera on 12/03/24 09:57 Results Reviewed Results Reviewed: Laboratory Last Values Glucose (Clinic) 213 mg/dL (60-115) H 12/03/24 09:39 Assessment & Plan Assessment & Plan (1) Uncontrolled type 2 diabetes mellitus with hyperglycemia, with long-term current use of insulin: Code(s): E11.65 - Type 2 diabetes mellitus with hyperglycemia; Z79.4 - parts counterman (current) use of insulin Category: Medical Plan: 73-year-old female here today for initial evaluation of type 2 diabetes mellitus who was diagnosed in her 50s, currently with long-term insulin use with complications of neuropathy, microalbuminuria. A1c today point of care of 8.9% down from Her A1c from August 2024 was 11%. Previously she was following with her primary care physician. Based on CGM data as well, patient has had improvement in blood sugars compared to August 2024, however still mostly above target range with hyperglycemia on both postprandially as well as fasting. Her PCP increased her Trulicity to 3 mg weekly in October 2024 as well as titrated up the Lantus to 30 units daily. She also notably has urine microalbumin levels that are elevated. She would benefit from an SGLT2 inhibitor as well. Plan: -continue metformin 1000 mg b.i.d. -continue Lantus 30units daily -continue Trulicity to 3 mg weekly injection -start Farxiga 5 mg daily, discussed importance of maintaining good hydration, rules about hygiene as well as to hold the medicine if sick with a infection or dehydration or vomiting. -follow up in 8 weeks -continue CGM monitoring with [employer] Everton 3+ -discussed complications of hyperglycemia including stroke, IN, microvascular complications -up to date with eye visit October 2024, no retinopathy. -she is complaining of shortness of breath and has pedal edema, BNP level at 23 from August 2024. Unlikely to be CHF, however she also apparently has a history of cirrhosis, has GI referral pending -advised at least 15-20 minutes of exercise daily -follow up with the educator (2) Peripheral neuropathy: Code(s): G62.9 - Polyneuropathy, unspecified Category: Medical Qualifiers: Peripheral neuropathy type: polyneuropathy associated with underlying disease Qualified Code(s): G63 - Polyneuropathy in diseases classified elsewhere Plan: Patient is complaining of numbness and burning in her hands. She does have history of neuropathy likely due to diabetes mellitus. Vitamin B12 from September 2024 also noted to be on the lower side at 270. 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 Continue rosuvastatin 20 mg daily, we will plan to add Zetia if lipid panel does not show improvement in LDL and triglycerides in 3 months. Ordered lipid panel to be done prior to follow up in 8 weeks. Plan I spent 30 minutes in reviewing the record, seeing the patient and documenting in the medical record. Orders: Orders AMB Hemoglobin A1c Today E11.65 - Type 2 diabetes mellitus with hyperglycemia, Z13.9 - Encounter for screening, unspecified, Z79.4 - parts counterman (current) use of insulin AMB Glucose Monitoring Today E11.65 - Type 2 diabetes mellitus with hyperglycemia, Z79.4 - parts counterman (current) use of insulin Lipid Panel 6 Weeks E11.65 - Type 2 diabetes mellitus with hyperglycemia, Z79.4 - parts counterman (current) use of insulin Comprehensive Met. Panel 6 Weeks E11.65 - Type 2 diabetes mellitus with hyperglycemia, Z79.4 - senior living (current) use of insulin Medications: New dapagliflozin propanediol (Farxiga) 5 mg PO DAILY 90 tabs 3RF Patient Instructions: Start Farxiga 5 mg daily Discussed importance of hygiene and stopping the medicine if sick or vomiting for 3-4 days till better Start vitamin B 12 500 mcg daily , you can buy this over the counter Continue metformin 1000 mg twice daily, insulin lantus 30 units daily and trulicity 3 mg weekly Follow up in 8 weeks Do fasting blood work prior to appointment Walk 15 to 20 mins daily at least Coding Level of Care Code Est Pt Level 4 (07591) Diagnoses Uncontrolled type 2 diabetes mellitus with hyperglycemia, with long-term current use of insulin E11.65; Z79.4 Polyneuropathy associated with underlying disease G63 Peripheral neuropathy type: polyneuropathy associated with underlying disease 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
[2024-12-03 09:32] VITALS: BP 160/78; PULSE 81; O2SAT 98; BMI 31.0
[2024-12-03 09:43] LABS: Glucose, Whole Blood 213 mg/dL (60-115)
--- OUTSIDE RECORDS SUMMARY | 2024-12-03 10:31 | XMS_ITS | Clinical Summary ---
Author Organization [address] [place] [address] Address [address] [place] [address] Phone Care Team Providers Care Rn Support Services Name Role Phone Candice Zhang Primary Care Provider [phone] Social History Tobacco Use Types Packs/Day Years [...] 12/11/2024 9:45 AM EDT Consult Orthopedic Surgery [place] [id number] [phone] Tano Joyce, DPFly [address] [address] Health Maintenance Due Date Last Done Comments [...] Vaccine ( - 2023-2 5 season) 2024 Cholesterol Screening (Lipid Panel) 10/08/2024 Depression Screening 10/08/2024 Diabetes: Annual Urine Albumin-Creatinine Ratio (uACR) 10/08/2024 Diabetes: Blood Sugar Contro l Test (HGBA1C) 10/08/2024 Falls Risk Assessment 10/08/2024 Hepatitis C Screening 10/08/2024 Medicare Annual Wellness Visit 10/08/2024 Osteoporosis Screening (Bone Density Screening) 10/08/2024 Social Influencers of Health Screening 10/08/2024 Influenza Vaccine (Season Ended) 2025 HIB Vaccines Aged Out No longer eligi [...] age to complete this topic Meningococcal B Vaccine Aged Out No l onger eligible based on patient's age to complete this topic RSV Immunization Patients Un brooke 20 months Aged Out No longer eligible b ased on patient's age to complete this topic Varicella Vaccines Aged Out No longer eligible based on patient's age to complete this topic Insurance MEDICARE MEDICAID - [place] Care Teams Rn Support Services Relationship Specialty Start Date End Date Candice Zhang PA [address] [place] [address] PCP - General Physician Energy Manager 10/08/24
== END 2024-12-03 10:10 | disposition home or self-care (01) ==
LOC: HO.ENCR 09:28
PROVIDERS: PCP Physician Assistant; Visit Provider Student in an Organized Health Care Education/Training Program
DX: E11.65 Type 2 diabetes mellitus with hyperglycemia (principal); E11.42 Type 2 diabetes mellitus with diabetic polyneuropathy; Z79.4 Long term (current) use of insulin; E06.3 Autoimmune thyroiditis; E78.2 Mixed hyperlipidemia; Z13.9 Encounter for screening, unspecified
CPT/HCPCS: 95251; 99214

== ENCOUNTER → 2024-12-03 09:27 | Outpatient (BNVA) | payer MEDICARE, MEDICAID, SELFPAY | PROVIDERS: PCP Physician Assistant; Visit Provider Student in an Organized Health Care Education/Training Program | DX: E11.65 Type 2 diabetes mellitus with hyperglycemia (principal); E11.42 Type 2 diabetes mellitus with diabetic polyneuropathy; E06.3 Autoimmune thyroiditis; E78.2 Mixed hyperlipidemia; Z79.4 Long term (current) use of insulin | CPT/HCPCS: 82947; 83036; 99212 ==

== ENCOUNTER 2024-12-12 08:16 | Outpatient (REF) | payer MEDICARE, MEDICAID, SELFPAY ==
--- NOTE | ~2024-12-12 | US_ITS ---
EXAMINATION: US ABDOMEN COMPLETE WITH LIVER ELASTOGRAPHY HISTORY: D69.6 - Thrombocytopenia, unspecified TECHNIQUE: Real-time grayscale ultrasound imaging of the abdomen was performed and images were reviewed. COMPARISON: There are no prior studies for comparison. FINDINGS: Liver: The right lobe of the liver measures 20.0 cm in size. The left lobe of the liver measures 12.8 cm in size. The liver demonstrates normal homogeneous echotexture, but demonstrates a nodular contour, suggestive of cirrhosis. No focal mass or intrahepatic biliary ductal dilatation is identified. There is normal hepatopedal flow in the portal vein. Ultrasound elastography of the liver was performed with 10 separate measurements of the liver parenchyma with the patient in the supine position. Measurements were obtained approximately 2 cm below Jacki's capsule and perpendicular to the capsule. Images are of satisfactory quality. The median shear wave velocity is 1.67 m/s. The interquartile range/median (IQR/median) is 0.13. Gallbladder and biliary tree: The gallbladder is surgically absent. The common bile duct is measures 8 mm in diameter. Kidneys: The right kidney measures 11.6 cm in length. The left kidney measures 11.0 cm in length. The kidneys are unremarkable, without evidence of masses, hydronephrosis, or calculi. Pancreas: The pancreatic head, neck, and body are unremarkable. The pancreatic tail is obscured by bowel gas. Spleen: The spleen is enlarged, measuring 17.7 cm in length. Abdominal aorta and inferior vena cava: The visualized portions of the abdominal aorta and inferior vena cava are normal in caliber. There is no free fluid in the abdomen. US/US abdomen comp w elastography IMPRESSION: Hepatosplenomegaly. Nodular liver contour, suggestive of cirrhosis. The median shear wave velocity in the liver is 1.67 m/s, corresponding to a median liver stiffness of 8.56 kPa. The IQR/median value is 0.13. This is indicative of a quality data set. Findings are indicative of a low elastography value which rules out advanced chronic liver disease in asymptomatic patients. REFERENCE: Society of Radiologists in Ultrasound Liver Stiffness Thresholds (2019): LIVER STIFFNESS THRESHOLDS: *Shear wave velocity less than 1.3 m/s (Liver Stiffness equal or less than 5 kPa): High probability of being normal. *Shear wave velocity less than 1.7 m/s (Liver Stiffness less than 9 kPa): In the absence of other known clinical signs, rules out compensated advanced chronic liver disease. *Shear wave velocity between 1.7-2.1 m/s (Liver Stiffness 9-13 kPa): Suggestive of compensated advanced chronic liver disease but need further test for confirmation. *Shear wave velocity between 2.1-2.4 m/s (Liver Stiffness 13-17 kPa): Rules in compensated advanced chronic liver disease. *Shear wave velocity greater than 2.4 m/s (Liver Stiffness over 17 kPa): Suggestive of clinically significant portal hypertension. QUALITY OF DATA SET: *IQR/Median value equal or less than 0.15 implies a quality data set. *IQR/Median value over 0.15 implies a poor quality data set. SIGNIFICANT CHANGE FROM PRIOR EXAM: Significant change if liver stiffness measurement is 10% or greater from prior exam. OTHER CONSIDERATIONS: The stage of liver fibrosis may be overestimated in the setting of acute hepatitis, liver inflammation, elevated liver function tests, hepatic vascular congestion, obstructive cholestasis, non-fasting state, and infiltrative diseases such as amyloidosis and lymphoma. In some patients with NAFLD, the liver stiffness thresholds for compensated advanced chronic liver disease may be lower. In causes other than viral hepatitis and NAFLD, liver stiffness thresholds are not well established. Electronically signed by: Ace Guo MD 12/14/2024 07:59 AM EDT
--- OUTSIDE RECORDS SUMMARY | 2024-12-12 08:31 | XMS_ITS | Encounter Summary ---
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 * Consultation (Routine) - Authorized Specialty Diagnoses / Procedures Referred By Simone garcia Referred To Contact Podiatry / Orthopaedic Surgery Diagnoses Pain in left foot Type 2 diabetes mellitus with hyperglycemia (CMS/HCC V24, CMS/HCC V28) Candice Zhang PA [address] [place] [phone] Phone: tel: Tano Joyce DPM [address] [address] Phone: tel: fax: Referral ID Status Reason Start Date Expiration Date Visits Requested Visits Authorized [id number] Authorized Specialty Services Required 10/08/2024 10/08/2025 1 1 Encounter Details Date Type Department Care Team (Late st Contact Info) Description 12/11/2024 9:45 AM EDT Consult Orthopedic Surgery - [place] [address] [address] Tano Joyce DPM [address] [address] Controlled type 2 diabetes mellitus with diabetic polyneuropathy, without long-term current use of insulin (CMS/HCC V24, CMS/HCC V28) (Primary Dx); Pain in left foot; Arthritis of both feet; Neuropathy; Localized edema; Onychomycosis; Callus Social History Tobacco Use Types Packs/Day Years Used Date Smoking Tobacco: Never Assessed Comments Unknown Sex and Gender Information Value Date Recorded Sex Assigned at Not on file Legal Sex Female 2:57 PM EST Gender Identity Not on file Sexual Orientation Not on file documented as of this encounter Last Filed Vital Signs Vital Sign Reading Time Taken Comments Blood Pressure - - Pulse - - Temperature - - Respiratory Rate - - Oxygen Saturation - - Inhaled Oxygen Concentration - - Weight 77.6 kg (171 lb) 12/11/2024 10:24 AM EDT Height 149.9 cm (4' 11 ) 12/11/2024 10:24 AM EDT Body Mass Index 34.54 12/11/2024 10:24 AM EDT documented in this encounter Progress Notes * Tano Joyce DPM - 12/11/2024 9:45 AM EDT Referring MD: Candice Zhang PA Last PCP visit: 09/20/2024 IDENTIFIER: @TITLE@ Rafael is a 74 y.o. year old female who presents for consultation. CC: Pain in feet HPI: Patient presents to office today for initial diabetic foot evaluation as recommended by their primary care physician. Patient states that they have been diabetic for the past few years and severe tingling numbness in the feet bilaterally Denies any history of ulceration, or infection. Patient would like to inquire about their pedal hygiene, as their toenails have become elongated and painful. Patient is not using antifungals at this time. Patient is wearing good supportive shoes at this time. Patient reports mild calluses that are becoming bothersome. Patient with minimal other pedal complaints at this time. Patient's FBS this AM was 157 Recent A1C is %. 11.0 ROS: GENERAL: Pt denies nausea, fever, vomiting, chills, or shortness of breath. Pt in NAD. CARDIOLOGY: pt denies chest pain, palpitations LUNGS: pt denies shortness of breath MUSCULOSKELETAL: See HPI, otherwise no joint pain or swelling, back pain, or muscle pain. SKIN: see HPI, otherwise no lesions, rash or itching NEURO: No persistent headache, weakness or numbness The remainder of the review of systems is noncontributory PAST MEDICAL HISTORY: There is no problem list on file for this patient. SOCIAL HISTORY: Social History Tobacco Use Smoking status: Not on file Smokeless tobacco: Not on file Substance Use Topics Alcohol use: Not on file ACTIVE MEDICATIONS: No outpatient medications have been marked as taking for the 12/11/24 encounter (Consult) with Tano Joyce DPM. ALLERGIES: @ALL@ PHYSICAL EXAM: Height 1.499 m (59 ), weight 77.6 kg (171 lb). PODIATRIC EXAMINATION: GENERAL: Patient appears well nourished, with NAD. VASCULAR: Dorsalis pedis pulses are 2/4 bilaterally and Posterior tibial pulses are 2/4 bilaterally. Capillary filling time within normal limits the digits. No pallor on elevation or rubor on dependency. Positive hair growth. Few varicosities. S1 pitting edema bilaterally. Denies rest pain or claudication pain. NEUROLOGICAL: Sharp/dull sensation intact, protective sensation diminished on Olar. Peripheral neuropathy throughout the feet bilaterally ORTHOPEDIC: Good muscle strength 5/5 of all flexors and extensors. Dorsi flexion of ankle ,10 degrees, plantar flexion WNL. No muscle atrophy. Arthritic changes in the midfoot. Curvature of the digits 2 through 5 with semireducible hammertoes. Increased arch height. Increased fat pad atrophy with bony prominences to the plantar met heads DERMATOLOGICAL:.No masses or skin lesions noted. Normal skin temperature, normal skin turgor. Nailsare elongated dystrophic discolored x 10 with subungual debris BIOMECHANICS: STJ ROM wnl, MTJ ROM wnl, 1st MPJ ROM wnl. IMPRESSION: 1. Controlled type 2 diabetes mellitus with diabetic polyneuropathy, without long-term current use of insulin ([facility] V24, [facility] V28) 2. Pain in left foot 3. Arthritis of both feet 4. Neuropathy 5. Localized edema 6. Onychomycosis 7. Callus PLAN: Pt was seen and examined, history reviewed. Patient educated on the importance of good pedal hygiene and tight blood glucose control. Patient encouraged to maintain a healthy lifestyle with a well-balanced diet. Patient should never go barefoot and wear supportive shoe gear. Patient should aim for A1c less than 7% every month. Continue with regular appointments with PMD or skin washer for tight medical management Patient with symptoms of arthritic changes in the pedal joints. Patient showed good understanding of etiology of arthritis. Patient is aware that conservative options include padding, over the counter products, orthotics, and shoes. Patient aware that they are other treatments available such as oral anti- inflammatories, injections, and steroid dose packs. Patient understands that these measures are conservative measures to help handle the osteoarthritic flares. Patient has symptomology associated with diabetic neuropathy that the patient relates as burning tingling sensation in the bilateral feet Encourage patient to use topicals such as Voltaren gel and Biofreeze as they have anti-inflammatoryand relieving effects when applied to plantar feet Patient showed verbal and adequate understanding of the path mechanics of neuropathy and the symptomatic relief gained from topical ointments Patient will start with [id number] methods and creams and if necessary we can prescribe a compound cream at a later date Patient to follow-up as needed for neuropathic pain to bilateral feet Patient was given a prescription for diabetic shoes with 3 sets of custom Plastizote inserts to allow for proper and safe ambulation and decrease chances of future ulceration Nail debridement performed to nails 1-5 bilateral as nails were described to be causing pain and difficulty for walking while in shoegear at their previous length. They were debrided in thickness andlength, with no incident. Clinical evidence of mycosis is documented which required active treatment. Patient expressed immediate relief. Patient is to RTC in 9 weeks Tano Joyce DPM documented in this encounter Plan of Treatment Upcoming Encounters Date Type Department Care Team (Late st Contact Info) Description 02/06/2025 8:45 AM EDT Office Visit Orthopedic Surgery - [place] [address] [phone] Tano Joyce DPM [address] [address] documented as of this encounter Visit Diagnoses Diagnosis Controlled type 2 diabetes mellitus with diabetic polyneuropathy, without long- term current use of insulin (CMS/[facility] V24, CMS/[facility] V28)- Primary Pain in left foot Pain in soft tissues of limb Arthritis of both feet Neuropathy Mononeuritis of unspecified site Localized edema Edema Onychomycosis Dermatophytosis of nail Callus Corns and callosities documented in this encounter Orders General Supply Count Last Ordered Date First Or dered Date DIABETIC CUSTOM MOLDED SHOE WITH INSERTS 1 12/11/2024 Outpatient Referral Count Last Ordered Date Fir st Ordered Date AMB REFERRAL TO PODIATRY 1 12/11/2024 documented in this encounter Care Teams Rn Child Relationship Specialty Start Date End Date Candice Zhang PA [address] [place] [address] PCP - General Physician Receiving Associate 10/08/24 documented as of this encounter
--- OUTSIDE RECORDS SUMMARY | 2024-12-12 08:31 | XMS_ITS | Clinical Summary ---
Author Organization [address] [place] [address] Address [address] [place] [address] Phone Care Team Providers Care Door Frame Builder Name Role Phone Candice Zhang Primary Care Provider [phone] Allergies No known active allergies Encounters Date Type Department Care Team Description 12/11/2024 9:45 AM EDT Consult Orthopedic Surgery [facility] [address] [place] [phone] Tano Joyce DPM Controlled type 2 diabetes mellitus with diabetic polyneuropathy, without long-term current use of insulin (CMS/[facility] V24, CMS/HCC V28) (Primary Dx); Pain in left foot; Arthritis of both feet; Neuropathy; Localized edema; Onychomycosis; Callus from Last 3 Months Social History Tobacco Use Types Packs/Day Years Used Date Smoking Tobacco: Never Assessed Comments Unknown Sex and Gender Information Value Date Recorded Sex Assigned at Not on file Legal Sex Female 2:57 PM EST Gender Identity Not on file Sexual Orientation Not on file Last Filed Vital Signs Vital Sign Reading Time Taken Comments Blood Pressure - - Pulse - - Temperature - - Respiratory Rate - - Oxygen Saturation - - Inhaled Oxygen Concentration - - Weight 77.6 kg (171 lb) 12/11/2024 10:24 AM EDT Height 149.9 cm (4' 11 ) 12/11/2024 10:24 AM EDT Body Mass Index 34.54 12/11/2024 10:24 AM EDT Plan of Treatment Upcoming Encounters Date Type Department Care Team ([facility] Contact Info) Description 02/06/2025 8:45 AM EDT Office Visit Orthopedic [facility] [address] [phone] Tano Joyce DPM 175 [facility] 250 [place] [address] Health Maintenance Due Date Last Done Comments Diabetes: Annual GFR (Glomer ular Filtration Rate) 1948 Diabetes: Annual Foot Exam 1958 Diabetes: Annual Retina Eye Exam 1958 DTaP,Tdap,and Td Vaccines (1 - Tdap) 11/22/1967 Pneumococcal Vaccine: 50+ Ye ars (1 of 2 - PCV) 11/22/1967 Zoster Vaccines (1 of 2) 1998 COVID-19 Vaccine (1 - 2023-2 5 season) 2024 Cholesterol Screening (Lipid Panel) 10/08/2024 Depression Screening 10/08/2024 Diabetes: Annual Urine Albumin-Creatinine Ratio (uACR) 10/08/2024 Diabetes: Blood Sugar Contro l Test (HGBA1C) 10/08/2024 Falls Risk Assessment 10/08/2024 Hepatitis C Screening 10/08/2024 Medicare Annual Wellness Visit 10/08/2024 Osteoporosis Screening (Bone Density Screening) 10/08/2024 Social Influencers of Health Screening 10/08/2024 Influenza Vaccine Completed 06/05/2024 RSV Immunization Adult Patients Completed HIB Vaccines Aged Out No longer eligi [...] Insurance MEDICARE MEDICAID - [place] Care Teams Door Frame Builder Relationship Specialty Start Date End Date Candice Zhang PA [address] [place] [phone] PCP - General Physician Filter Helper 10/08/24
== END 2024-12-12 08:17 | disposition home or self-care (01) ==
LOC: HO.US 08:16
PROVIDERS: PCP Physician Assistant; Visit Provider Physician Assistant
DX: K74.60 Unspecified cirrhosis of liver (principal); D69.6 Thrombocytopenia, unspecified
CPT/HCPCS: 76700; 76981

== ENCOUNTER → 2024-12-12 08:18 | Outpatient (BNV) | payer MEDICARE, MEDICAID, SELFPAY | PROVIDERS: PCP Physician Assistant; Visit Provider Radiology Diagnostic Radiology | DX: D69.6 Thrombocytopenia, unspecified (principal) | CPT/HCPCS: 76700; 76981 ==

== ENCOUNTER 2025-01-18 08:11 | Outpatient (REF) | payer MEDICARE, MEDICAID, SELFPAY ==
--- OUTSIDE RECORDS SUMMARY | 2025-01-18 08:14 | XMS_ITS | Clinical Summary ---
Author Organization [address] [place] [address] Address [address] [place] [address] Phone Care Team Providers Care Timber Framer Helper Name Role Phone Candice Zhang Primary Care Provider [phone] Allergies No known active allergies Encounters Date Type Department Care Team Description 12/11/2024 9:45 AM EDT Consult Orthopedic Surgery [facility] [address] [place] [phone] Tano Joyce DPM Controlled type 2 diabetes mellitus with diabetic polyneuropathy, without long-term current use of insulin (CMS/[facility] V24, CMS/HCC V28) (Primary Dx); Pain [...] Upcoming Encounters Date Type Department Care Team ([facility] Contact Info) Description 02/06/2025 8:45 AM EDT Office Visit Orthopedic [facility] [address] [phone] Tano Joyce DPM [address] [facility] [address] [place] [address] Health Maintenance Due Date Last Done Comments [...] Insurance MEDICARE MEDICAID - [place] Care Teams Timber Framer Helper Relationship Specialty Start Date End Date Candice Zhang PA [address] [place] [phone] PCP - General Physician Carbon Setter 10/08/24
[2025-01-18 10:22] LABS: MANUAL DIFF FLAG NO
[2025-01-18 10:30] LABS: Basophils Percent Auto 0.7 % (0-2); Eosinophils Absolute Auto 0.1 X10*3/uL (0.0-0.4); Hemoglobin 13.7 g/dl (12.0-16.0); Imm Gran Abs Auto 0.02 X10*3/uL (0.00-0.03); Imm Gran Pct Auto 0.3 % (0.0-0.4); Lymphocytes Absolute Auto 1.3 X10*3/uL (1.2-4.9); Lymphocytes Percent Auto 22.7 % (20-40); Mean Corpuscular HGB Conc 32.6 g/dl (31.0-35.0); Mean Corpuscular Hemoglobin 27.1 pg (27.0-33.0); Mean Corpuscular Volume 83.2 fL (80.0-98.0); Mean Platelet Volume 11.4 fL (9.4-12.3); Monocytes Absolute Auto 0.4 X10*3/uL (0.1-1.2); Monocytes Percent Auto 6.8 % (2-11); Neutrophils Percent Auto 67.5 % (45-73); Platelet Count 101 X10*3/uL (160-400); Red Blood Count 5.05 X10*6/uL (4.20-5.50); Red Cell Distribution Width 13.5 % (11.0-16.0); White Blood Count 5.9 X10*3/uL (4.8-10.8)
[2025-01-18 10:58] LABS: Alanine Aminotransferase 38 U/L (0-31); Albumin Level 4.3 g/dL (3.5-5.0); Alkaline Phosphatase 96 U/L (39-117); Anion Gap 15 (12-20); Aspartate Amino Transferase 36 U/L (5-31); Bilirubin Total 0.6 mg/dL (0.0-1.0); Blood Urea Nitrogen 20 mg/dL (9-16); Calcium 9.9 mg/dL (8.4-10.2); Carbon Dioxide 25 mmol/L (22-29); Chloride 106 mmol/L (96-108); Cholesterol 157 mg/dL (<200); Estimated Glomerular Filt Rate > 60; Glucose Fasting 144 mg/dL (60-99); HDL Cholesterol 41 mg/dL (>40); LDL Cholesterol Calculated 80 mg/dL (<100); Potassium 4.5 mmol/L (3.3-5.1); Sodium 141 mmol/L (135-145); Total Protein 7.4 g/dL (6.5-8.0); Triglycerides 183 mg/dL (<150)
[2025-01-18 11:02] LABS: TSH reflex Free T4 1.48 uIU/mL (0.32-4.0)
[2025-01-18 11:06] LABS: Creatinine Urine 58.72 mg/dL; Microalbum/Creatinine Ratio Ur 83.4 ug/mg cr (<30)
== END 2025-01-18 08:12 | disposition home or self-care (01) ==
LOC: HO.HMGCLDS 08:11
PROVIDERS: PCP Physician Assistant; Referring Provider Student in an Organized Health Care Education/Training Program; Visit Provider Physician Assistant
DX: E11.22 Type 2 diabetes mellitus with diabetic chronic kidney disease (principal); N18.30 Chronic kidney disease, stage 3 unspecified; E06.3 Autoimmune thyroiditis; D69.6 Thrombocytopenia, unspecified; E78.2 Mixed hyperlipidemia; E11.65 Type 2 diabetes mellitus with hyperglycemia; Z79.4 Long term (current) use of insulin; K74.60 Unspecified cirrhosis of liver
CPT/HCPCS: 36415; 80053; 80061; 82043; 82570; 84443; 85025

== ENCOUNTER 2025-01-23 08:24 | Outpatient (AMB) | payer MEDICARE, MEDICAID, SELFPAY ==
--- NOTE | 2025-01-23 08:33 | A.OFFVIS_ITS ---
VS Expanded 01/23/25 08:34 Height 5 ft 1.89 in Weight 161 lb 13.109 oz BMI 29.7 Intake Visit Reasons: T2DM Allergies codeine Allergy (Mild, Verified 12/03/24 09:37) heart races shellfish Allergy (Unknown, Uncoded 12/03/24 09:37) joint swelling codiene Allergy (Uncoded 12/03/24 09:37) Unknown Nutrition Presentation Details: Pt presents for MNT f/u for T2DM Pt reports working on choosing lower sugar cereals Breakfast coffee with sweetened cream, cookie, fruit or granola pumpkin seed cereal with whole milk and coffe with sweetened cream lunch: at [facility] : carrots/green beans, mashed potato, beef, water and 4 oz fruit cup dinner: 2 stuffed peppers with beef/rice, water or pork loin and sweet potato and asparagus, sometimes has second servings bedtime snack, nuts or ice cream or glass of whole milk denies : vomiting, diarrhea, constipation overall reports feeling well, denies hypoglycemia BG : most recent 14 d bg average 161 mg/dl, 71% within target, 28% above 180 , 1% above 250 mg/d BS Monitoring Most Recent Diabetes Results: Microalb/Creat Ratio 83.4 ug/mg cr (<30) H 01/18/25 Cholesterol 157 mg/dL (<200) 01/18/25 HDL Cholesterol 41 mg/dL (>40) 01/18/25 Triglycerides 183 mg/dL (<150) H 01/18/25 Creatinine 0.82 mg/dL (0.5-1.4) 01/18/25 Blood Urea Nitrogen 20 mg/dL (9-16) H 01/18/25 Sodium 141 mmol/L (135-145) 01/18/25 Potassium 4.5 mmol/L (3.3-5.1) 01/18/25 Chloride 106 mmol/L (96-108) 01/18/25 Carbon Dioxide 25 mmol/L (22-29) 01/18/25 Calcium 9.9 mg/dL (8.4-10.2) 01/18/25 AST 36 U/L (5-31) H 01/18/25 ALT 38 U/L (0-31) H 01/18/25 Total Protein 7.4 g/dL (6.5-8.0) 01/18/25 Albumin 4.3 g/dL (3.5-5.0) 01/18/25 [facility] Medical History (Updated 10/24/24 @ 09:17 by Candice Zhang PA-C) Hypothyroidism Surgical History History of partial hysterectomy History of cholecystectomy Family History Brother Substance abuse Mother Liver cancer Sister Lung cancer Social History Housing: House Alcohol intake: current Patient Tobacco Use Status: Former Tobacco user Cigarette Packs Per Day: 1 Years Smoked: 25 e-Cigarette/Vaping Use: Never Used Second Hand Smoke Exposure: No service: Yes Current occupational status: retired Cognitive needs: No Hearing needs: Yes (hearing loss) Vision needs: No Assessment & Plan Assessment & Plan (1) Uncontrolled type 2 diabetes mellitus with hyperglycemia, with long-term current use of insulin: Code(s): E11.65 - Type 2 diabetes mellitus with hyperglycemia; Z79.4 - intermediate card tender (current) use of insulin Category: Medical Plan: Wt: 80 Kg ( 11/13 ), 79.5 (12/14), 74 kg(02/13)- noted Pt started on farxiga 2 months ago Est kcal needs as per MSJ: 8808-6808 (40% carb, 30% protein/fat) Est fluid needs as per 25-30 ml/d: 2400 Est prot per day as per 1 g/kg bw: 80 Recommend fiber intake : 8-10 g per day and gradually increase to 25-28 g per day for women and 35-38 g for men or as tolerated Recommend sodium intake per day : less than 2000 mg Educated patient on: ( R = reviewed V = verbalizes understanding N/R = needs review N/A = not applicable * Food sources of carbohydrate, adequate serving sizes and its role in various health conditions: R * Differences between complex carbohydrates a simple carbohydrates, role of fiber in diet: R * Lean protein sources of foods: R * Differences between types of fats and role in diet (mono on saturated fat fatty acids, saturated fatty acids, trans fats): R * Food sources of sodium in salt and healthy modifications for heart health in kidney health: R V R/V * Vitamins and minerals: R V N/R * Healthy plate method concept: R * Physical activity: Benefits a precaution: R * Hypoglycemia protocol (rule of 15): R , written information provided * Dietary prevention of Hyperglycemia: R , V Pt declined f/u appt Patient Instructions: Include at least 2 oz of lean protein food at breakfast example : yogurt or eggs, or cottage cheese keep physically active as able Keep hydrated by having water with meals/snacks , including vegetables and fruit s in your meals for hydration call for questions or to make a follow up appt Coding Level of Care Code Nutr Indiv Subseq ([id number]) Diagnoses Uncontrolled type 2 diabetes mellitus with hyperglycemia, with long-term current use of insulin E11.65; Z79.4 Time Spent (min) 30
--- OUTSIDE RECORDS SUMMARY | 2025-01-23 08:33 | XMS_ITS | Clinical Summary ---
Author Organization [address] [place] [address] Address [address] [place] [address] Phone Care Team Providers Care Turner In Name Role Phone Candice Zhang Primary Care Provider [phone] Allergies No known active allergies Encounters Date Type Department Care Team Description 12/11/2024 9:45 AM EDT Consult Orthopedic Surgery [facility] [address] [place] [phone] Tano Joyce DPM Controlled type 2 diabetes mellitus with diabetic polyneuropathy, without long-term current use of insulin (CMS/[facility] V24, CMS/HCC V28) (Primary Dx); Pain in [...] Upcoming Encounters Date Type Department Care Team ([facility] Contact Info) Description 02/06/2025 8:45 AM EDT Office Visit Orthopedic [facility] [address] [phone] Tano Joyce DPM 175 [facility] [address] [place] [address] Health Maintenance Due Date Last Done Comments [...] Insurance MEDICARE MEDICAID - [place] Care Teams Turner In Relationship Specialty Start Date End Date Candice Zhang PA [address] [place] [phone] PCP - General Physician Nutter Up 10/08/24
[2025-01-23 08:34] VITALS: BMI 29.7
== END 2025-01-23 10:07 | disposition home or self-care (01) ==
LOC: HO.ENCR 08:25
PROVIDERS: PCP Physician Assistant; Visit Provider Dietitian, Registered
DX: E11.65 Type 2 diabetes mellitus with hyperglycemia (principal); Z79.4 Long term (current) use of insulin

== ENCOUNTER → 2025-01-23 08:24 | Outpatient (BNVA) | payer MEDICARE, MEDICAID, SELFPAY | PROVIDERS: PCP Physician Assistant; Visit Provider Dietitian, Registered | DX: E11.65 Type 2 diabetes mellitus with hyperglycemia (principal); Z79.4 Long term (current) use of insulin | CPT/HCPCS: 97803 ==

== ENCOUNTER 2025-01-28 09:22 | Outpatient (AMB) | payer MEDICARE, MEDICAID, SELFPAY ==
[2025-01-28 09:26] VITALS: BP 122/68; PULSE 64; O2SAT 98; BMI 30.5
--- NOTE | 2025-01-28 09:26 | MHC.OFFVIS ---
Vital Signs 01/28/25 09:26 Height 5 ft 1.89 in Weight 166 lb 3.657 oz BMI 30.5 BP 122/68 Blood Pressure Location Lt brachial Position Sitting Pulse 64 Pulse Source Pulse Oximeter Pulse Oximetry (%) 98 Oxygen Delivery Method Room Air Intake Visit Reasons: T2DM Intake Note: Patient present today for Type 2 Diabetes Mellitus Last Diabetic eye exam: 09/2024 Last Podiatry Visit: 12/2024 and has upcoming appt 01/06/25 Random Glucose: 180 mg/dl HgA1C: 8.9% 12/03/24 [employer] Required: No Accompanied by: Self / Same As Patient Allergies codeine Allergy (Mild, Verified 01/28/25 09:31) heart races shellfish Allergy (Unknown, Uncoded 01/28/25 09:31) joint swelling codiene Allergy (Uncoded 01/28/25 09:31) Unknown Medication List - Last Reconciled 01/28/25 by Chen Russell MD 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 sensor (FreeStyle Everton 3 Sensor device) Apply every 14 days As directed to monitor blood glucose 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 sensor (FreeStyle Everton 3 Plus Sensor device) Use daily As directed to monitor glucose 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,windmill mechanic,cont (FreeStyle Everton 3 [place]) Use daily As directed to monitor blood glucose cetirizine (Zyrtec) 10 mg PO DAILY [coqu10 .] dapagliflozin propanediol (Farxiga) 5 mg PO DAILY dulaglutide (Trulicity) 3 mg (0.5 mL) subcut QWEEK fluticasone propionate 50 mcg/actuation (Flonase Allergy Relief) 1 spray intranasal BID glucose (Dex4 Glucose) 16 grams (4 x 4 gram) PO Q15M PRN insulin glargine (Lantus Solostar U-100 Insulin) 30 units (0.3 mL) subcut QPM levothyroxine 50 mcg PO DAILY metformin 1,000 mg PO BID 90 days metoprolol succinate ER 100 mg PO DAILY pen needle, diabetic (BD Desi 2nd Gen Pen Needle) Use BID As directed rosuvastatin 10 mg PO DAILY triamcinolone acetonide 0.025% 1 appl topical BID HPI Comments Details: 73-year-old female here today for fup of type 2 diabetes mellitus. History of diabetes Diagnosed in her 50 s with Type 2 DM Prior therapy: Current regimen: Lantus 30 units (increased by PCP 10/24/24) Metformin 1000 mg BID Trulicity 3 mg weekly (increased by PCP 10/24/24) Farxiga 5 mg daily started 12/03/2024. Prior meds Glipizide 10 mg BID discontinued in Oct 16 to avoid risk of hypoglycemia A1c 11% Aug 2024 POC a1c 8.9 % November 2024 Random Glucose: 180 mg/dl 3 meals a day No soda , no sugary drinks \Snacks sometimes Lunch pork chops with rice and broccoli MASLD score based on labs from December 2024 at 4.39, concerning for advanced fibrosis, patient had liver elastography done 12/12/2024, which showed low elasticity, ruling out advanced chronic cirrhosis, patient was evaluated by GI at [facility], TIANA Ochoa, was told needs annual follow up, otherwise no concern for cirrhosis at this time. Denies any symptoms of hyperglycemia including polyphagia, polyuria, polydipsia. Denies any hypoglycemic symptoms. [employer] Everton 3 downloaded from January 15 to 01/28/2025 Time CGM active 96% Average glucose 160 mg/dL G MO 7.1% Glucose variability 21.3% Within target range 73% High 26% Very high 1% Low 0% Interpretation: Blood sugars noted to be mostly higher around 08:00 and 14:24, which lines with the meals. Exercise none Complications Last Diabetic eye exam: 10/2024, no retinopathy Last Podiatry Visit: December 2024 Neuropathy: numbness burning in hands Kidney disease: has microalbuminuria improved to December from 111 ratio Aug 2024 Macrovascular complications: No history of macrovascular complications. Statin:rosuvatstain 20 mg daily LDL 80 mg/dL from December 2024 down from 92 mg /dl Aug 2024 PEDRO/ARB: none Exercise: walking a bit now Diet control: none saw CDE 11/21/24 saw pantry cook 11/21/24 He has never had any hospitalizations for hyperglycemia/hypoglycemia. Physical exam General: sitting comfortably in no acute distress HEENT: normocephalic/atraumatic, EOM intact, moist oral mucosa Neck: supple, Cardiac: normal heart sounds Pulm: normal breath sounds B/L, no added breath sounds Abd: not distended, no tenderness Extremities: Bilateral pitting edema noted Neuro: AAO x3, Speech: normal, no facial droop, moving all 4 extremities Foot exam: checked 10/01/24 intact sensation to monofilament, intact pulses, intact vibration Laboratory Tests 09/06/24 09/07/24 09/07/24 16:28 08:32 08:35 Plt Count 81 L Creatinine 0.97 Estimated GFR 56 Glucose (Clinic) Hgb A1c (Clinic) 11.0 H AST 34 H ALT 36 H B-Natriuretic Peptide Triglycerides 233 H Cholesterol 180 LDL Cholesterol, Calc 92 HDL Cholesterol 42 Urine Creatinine 72.85 Urine Microalbumin 81.0 Microalb/Creat Ratio 111.1 H 09/07/24 10/01/24 08:37 09:22 Plt Count Creatinine Estimated GFR Glucose (Clinic) 270 H Hgb A1c (Clinic) AST ALT B-Natriuretic Peptide 23 Triglycerides Cholesterol LDL Cholesterol, Calc HDL Cholesterol Urine Creatinine Urine Microalbumin Microalb/Creat Ratio Laboratory Tests 09/07/24 09/07/24 10/15/24 08:32 08:35 08:10 Plt Count 113 L D Potassium 4.8 Creatinine 0.98 Estimated GFR 55 Fasting Glucose 248 H AST 30 ALT 29 Albumin 4.0 Vitamin B12 273 TSH 1.87 Urine Creatinine 72.85 Urine Microalbumin 81.0 Microalb/Creat Ratio 111.1 H Laboratory Tests 01/18/25 08:48 Hgb 13.7 Hct 42.0 Plt Count 101 L Sodium 141 Potassium 4.5 Creatinine 0.82 Estimated GFR > 60 Fasting Glucose 144 H AST 36 H ALT 38 H Triglycerides 183 H Cholesterol 157 LDL Cholesterol, Calc 80 HDL Cholesterol 41 TSH 1.48 Urine Creatinine 58.72 Urine Microalbumin 49.0 Microalb/Creat Ratio 83.4 H [facility] Medical History (Updated 10/24/24 @ 09:17 by Candice Zhang PA-C) Hypothyroidism Surgical History History of partial hysterectomy History of cholecystectomy Family History Brother Substance abuse Mother Liver cancer Sister Lung cancer Social History Housing: House Alcohol intake: current Patient Tobacco Use Status: Former Tobacco user Cigarette Packs Per Day: 1 Years Smoked: 25 e-Cigarette/Vaping Use: Never Used Second Hand Smoke Exposure: No service: Yes Current occupational status: retired Cognitive needs: No Hearing needs: Yes (hearing loss) Vision needs: No Physical Exam Vital Signs: Last Vital Signs Pulse 64 01/28/25 09:26 BP 122/68 01/28/25 09:26 Pulse Ox 98 01/28/25 09:26 Oxygen Delivery Method Room Air 01/28/25 09:26 BMI result Body Mass Index 30.5 Office Procedures Glucose Monitoring Details Details: See [facility] [address] - Glucose monitoring, continuous-physician I&R Procedure code (CPT) selection complete Assessment & Plan Assessment & Plan (1) Uncontrolled type 2 diabetes mellitus with hyperglycemia, with long-term current use of insulin: Code(s): E11.65 - Type 2 diabetes mellitus with hyperglycemia; Z79.4 - custodial (current) use of insulin Category: Medical Plan: 73-year-old female here today for initial evaluation of type 2 diabetes mellitus who was diagnosed in her 50s, currently with long-term insulin use with complications of neuropathy, microalbuminuria. A1c November 2024 point of care of 8.9% down from Her A1c from August 2024 was 11%. Previously she was following with her primary care physician. Based on CGM data as well, patient has had improvement in blood sugars c now G MO 7.1% and she is within target range 73% of the time. She does still have some postprandial spikes after breakfast, she does have a cookie with her breakfast that she could eliminate. Otherwise we will continue her on the same regimen. MASLD score based on labs from December 2024 at 4.39, concerning for advanced fibrosis, patient had liver elastography done 12/12/2024, which showed low elasticity, ruling out advanced chronic cirrhosis, patient was evaluated by GI at [facility], TIANA Ochoa, was told needs annual follow up, otherwise no concern for cirrhosis at this time. Plan: -continue metformin 1000 mg b.i.d. -continue Lantus 30units daily -continue Trulicity to 3 mg weekly injection -continue Farxiga 5 mg daily -continue CGM monitoring with [facility] Everton 3+ -discussed complications of hyperglycemia including stroke, MO, microvascular complications -up to date with eye visit October 2024, no retinopathy. -advised at least 15-20 minutes of exercise daily (2) Peripheral neuropathy: Code(s): G62.9 - Polyneuropathy, unspecified Category: Medical Qualifiers: Peripheral neuropathy type: polyneuropathy associated with underlying disease Qualified Code(s): G63 - Polyneuropathy in diseases classified elsewhere Plan: Patient is complaining of numbness and burning in her hands. She does have history of neuropathy likely due to diabetes mellitus. Vitamin B12 from September 2024 also noted to be on the lower side at 270. Started on vitamin B12 500 mcg daily November 2024. 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 Plan: -continue levothyroxine 50 mcg daily (4) Hyperlipidemia: Code(s): E78.5 - Hyperlipidemia, unspecified Category: Medical Qualifiers: Hyperlipidemia type: mixed hyperlipidemia Qualified Code(s): E78.2 - Mixed hyperlipidemia Plan: Noted to have elevated triglyceride levels as well as LDL above goal of 90 mg/dL from August 2024. Labs improved in December 2024. LDL now at 80 mg/dL. Still above goal of less than 70 mg/dL. Continue rosuvastatin 20 mg daily, we will plan to add Zetia if lipid panel does not show improvement in LDL and triglycerides in 3 months. Ordered lipid panel to be done prior to follow up in 3 months Plan I spent 30 minutes in reviewing the record, seeing the patient and documenting in the medical record. Orders: Orders AMB Glucose Monitoring Today E11.65 - Type 2 diabetes mellitus with hyperglycemia, Z79.4 - custodial (current) use of insulin Vitamin B12 3 Months E11.65 - Type 2 diabetes mellitus with hyperglycemia, Z79.4 - custodial (current) use of insulin Lipid Panel 3 Months E11.65 - Type 2 diabetes mellitus with hyperglycemia, Z79.4 - opto mechanical technician (current) use of insulin Basic Metabolic Panel 3 Months E11.65 - Type 2 diabetes mellitus with hyperglycemia, Z79.4 - opto mechanical technician (current) use of insulin Hemoglobin A1c 3 Months E11.65 - Type 2 diabetes mellitus with hyperglycemia, Z79.4 - opto mechanical technician (current) use of insulin Patient Instructions: Continue MEtformin, Farxiga, insulin and Trulicity as it is Follow up in 3 months with blood work done 3-4 days prior to appointment Continue vitamin B 12 supplements Rule of 15 Treatment for Hypoglycemia (Low blood sugar) If your blood glucose is low (70 and below)*, follow the steps below to treat: Eat or drink something from the list below equal to 15 grams of carbohydrate (carb). Rest for 15 minutes Re-check your blood glucose. If it is still low, (below 70), repeat step 1 above. ? If your next meal is more than an hour away, you will need to eat one carbohydrate choice as a snack to keep your blood glucose from going low again. ?If you can't figure out why you have low blood glucose, call your healthcare provider, as your medicine may need to be adjusted. ?Always carry something with you to treat an insulin reaction. Use food from the list below. ? Foods equal to One Carbohydrate Choice (15 grams of carbohydrate): 3 Glucose ?tablets or 4 Dextrose tablets 4 ounces of fruit juice 5-6 ounces (about 1/2 can) of regular soda such as Coke or Pepsi ? 7-8 gummy or regular Life Savers ? 1 Tbsp. of sugar or jelly NOTE: If your blood sugar is less than 50, double the portion above for a total of 30 gm. ?Carbohydrate. ? Follow meal plan of 45-60 g of consistent carbohydrates at 3 meals each day and 15 g of carbohydrate at 1-2 snacks each day. 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
[2025-01-28 09:37] LABS: Glucose, Whole Blood 180 mg/dL (60-115)
--- OUTSIDE RECORDS SUMMARY | 2025-01-28 09:52 | XMS_ITS | Clinical Summary ---
Author Organization [address] [place] [address] Address [address] [place] [address] Phone Care Team Providers Care Chief Airline Radio Operator Name Role Phone Candice Zhang Primary Care Provider [phone] Allergies No known active allergies Encounters Date Type Department Care Team Description 12/11/2024 9:45 AM EDT Consult Orthopedic Surgery [facility] [address] [place] [id number] Tano Joyce DPM Controlled type 2 diabetes mellitus with diabetic polyneuropathy, without long-term current use of insulin (CMS/[facility] V24, CMS/HCC V28) (Primary Dx); Pain [...] Upcoming Encounters Date Type Department Care Team ([facility] Contact Info) Description 02/06/2025 8:45 AM EDT Office Visit Orthopedic [facility] [address] [id number] Tano Joyce DPM 175 [facility] [address] [place] [address] Health Maintenance Due Date Last Done Comments [...] Insurance MEDICARE MEDICAID - [place] Care Teams Chief Airline Radio Operator Relationship Specialty Start Date End Date Candice Zhang PA [address] [place] [phone] PCP - General Physician Career Services Manager 10/08/24
== END 2025-01-28 09:51 | disposition home or self-care (01) ==
LOC: HO.ENCR 09:23
PROVIDERS: PCP Physician Assistant; Visit Provider Student in an Organized Health Care Education/Training Program
DX: E11.65 Type 2 diabetes mellitus with hyperglycemia (principal); Z79.4 Long term (current) use of insulin; E11.42 Type 2 diabetes mellitus with diabetic polyneuropathy; E06.3 Autoimmune thyroiditis; E78.2 Mixed hyperlipidemia
CPT/HCPCS: 95251; 99214

== ENCOUNTER → 2025-01-28 09:22 | Outpatient (BNVA) | payer MEDICARE, MEDICAID, SELFPAY | PROVIDERS: PCP Physician Assistant; Visit Provider Student in an Organized Health Care Education/Training Program | DX: E11.65 Type 2 diabetes mellitus with hyperglycemia (principal); E78.2 Mixed hyperlipidemia; E06.3 Autoimmune thyroiditis; G63 Polyneuropathy in diseases classified elsewhere; Z79.4 Long term (current) use of insulin; Z79.84 Long term (current) use of oral hypoglycemic drugs; Z79.85 Long-term (current) use of injectable non-insulin antidiabetic drugs | CPT/HCPCS: 82947; 99212 ==

== ENCOUNTER 2025-01-30 08:29 | Outpatient (AMB) | payer MEDICARE, MEDICAID, SELFPAY ==
[2025-01-30 08:37] VITALS: BP 128/76; PULSE 70; RESP 14; TEMP 36.4; O2SAT 97; BMI 29.8
--- NOTE | 2025-01-30 08:37 | A.OFFPC_ITS ---
Vital Signs 01/30/25 08:37 Height 5 ft 1.89 in Weight 162 lb 8 oz BMI 29.8 BP 128/76 Blood Pressure Location Lt brachial Position Sitting Respiration 14 Pulse 70 Pulse Source Pulse Oximeter Temp 97.5 F Temp Source Oral Pulse Oximetry (%) 97 Oxygen Delivery Method Room Air Intake Visit Reasons: dm, bp, chronic conditions Allergies codeine Allergy (Mild, Verified 01/28/25 09:31) heart races shellfish Allergy (Unknown, Uncoded 01/28/25 09:31) joint swelling codiene Allergy (Uncoded 01/28/25 09:31) Unknown Medication List - Last Reconciled 01/30/25 by Candice Zhang PA-C 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 sensor (FreeStyle Everton 3 Sensor device) Apply every 14 days As directed to monitor blood glucose 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 sensor (FreeStyle Everton 3 Plus Sensor device) Use daily As directed to monitor glucose 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,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,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 (FreeStyle Everton 3 [place]) Use daily As directed to monitor blood glucose cetirizine (Zyrtec) 10 mg PO DAILY [coqu10 .] dapagliflozin propanediol (Farxiga) 5 mg PO DAILY dapagliflozin propanediol (Farxiga) 5 mg PO DAILY dulaglutide (Trulicity) 3 mg (0.5 mL) subcut QWEEK fluticasone propionate 50 mcg/actuation (Flonase Allergy Relief) 1 spray intranasal BID glucose (Dex4 Glucose) 16 grams (4 x 4 gram) PO Q15M PRN insulin glargine (Lantus Solostar U-100 Insulin) 30 units (0.3 mL) subcut QPM levothyroxine 50 mcg PO DAILY metformin 1,000 mg PO BID 90 days metoprolol succinate ER 100 mg PO DAILY pen needle, diabetic (BD Desi 2nd Gen Pen Needle) Use BID As directed rosuvastatin 10 mg PO DAILY triamcinolone acetonide 0.025% 1 appl topical BID [vitamin B PO] Tobacco use date assessed: 01/30/25 Fall risk assessment: No Falls in past year Last assessed Fall Risk: 01/30/25 Dental Screening Dental Screen Date: 09/06/24 Did you have a dental visit in the last 12 months?: No Did you have a dental problem in the last 6 months where you did not have access to dental care?: No Was dental information given to patient?: Patient declined HPI dm, bp, chronic conditions HPI Details Patient is a 74-year-old female with a significant past medical history of cirrhosis, hypertension, depression, hyperlipidemia and type 2 diabetes presenting today for a follow up. General: just started vitamin B12. Seeing family in [place] and [place] this summer. MSK: Complains today of her right middle finger getting stuck. She states that she has to constantly rub her finger and pull it back open. Endo: She was diagnosed with diabetes around 1994. Her last A1c was 8.9 (down from 11). She is on Lantus 30 units, Trulicity 3 mg weekly and metformin 1000 mg twice a day and farxiga 5 mg daily. She recently had diabetic Education and saw endocrinology a few days ago. CV: Blood pressure today in the office is 128/76. She is currently on metoprolol 100 mg daily. Not on an PEDRO-inhibitor. Cholesterol is controlled with Crestor 10 mg. GI: Pt was told while living in [place] she had cirrhosis. MASLD score based on labs from December 2024 at 4.39, concerning for advanced fibrosis, patient had liver elastography done 12/12/2024, which showed low elasticity, ruling out advanced chronic cirrhosis, patient was evaluated by GI at [facility], TIANA Ochoa, was told needs annual follow up, otherwise no concern for cirrhosis at this time. Psych: She states that January is a hard month for her but she is overall doing okay. Tomorrow would have been her and her has been sweating anniversary and then on 02/04 was the day that he had his stroke and on 02/18. She is planning to go to [place] to see her grandson and great grandchildren. She states that she does not get along with her grandson's and that is the reason why she moved from [place]. She helped raise her great grandchildren and raised her grandson so that has been a struggle but she is excited to go back to visit. Hoping that everyone is on better terms. She is also visiting her other grandson and son in [place]. She says that she has a good support system and is currently living with her friend and this has been a good arrangement. Does not want a referral to behavioral health. Mammo: does not want anymore Colonoscopy: a couple years ago Bone density: osteopenia- 2024 Sister had lung cancer Maternal grandmother had pancreatic ca Mother had liver ca - not a drinkre [facility] Medical History (Updated 01/30/25 @ 08:53 by Candice Zhang PA-C) Hypothyroidism Surgical History History of partial hysterectomy History of cholecystectomy Family History Brother Substance abuse Mother Liver cancer Sister Lung cancer Social History Housing: House Alcohol intake: current Patient Tobacco Use Status: Former Tobacco user Cigarette Packs Per Day: 1 Years Smoked: 25 e-Cigarette/Vaping Use: Never Used Second Hand Smoke Exposure: No service: Yes Current occupational status: retired Cognitive needs: No Hearing needs: Yes (hearing loss) Vision needs: No Questionnaire Thrive Questionnaire Date Thrive assessed: 08/30/24 I am a: Patient What is your living situation today?: I have a steady place to live Within the past 12 months, did the food you bought not last and you didn't have the money to get more?: Never true Within the past 12 months, did you worry whether your food would run out before you got money to buy more?: Never true Do you have trouble paying for medicines?: No Do you have trouble getting transportation to medical appointments?: No Do you have trouble paying your heating and electricity bill?: No Do you have trouble taking care of your child, family member or friend?: No Do you have trouble with day-to-day activities such as bathing, preparing meals, shopping, managing finances, etc.?: No Are you currently unemployed and looking for a job?: No Are you interested in more education?: No Please select the resources that you would like help with: None Currently or been in a relationship where the following occur: No concerns reported THRIVE Score: 0 AUDIT C Alcohol Use Questionnaire (AUDIT-C) 1. How often do you have a drink containing alcohol?: Monthly or less (10 drinks a year or less) 2. How many drinks containing alcohol do you have on a typical day when you are drinking?: 1 or 2 3. How often do you have six or more drinks on one occasion?: Never Total Score: 1 RAFAELA-7 AMB Questionnaire RAFAELA-7 Date RAFAELA - 7 assessed: 09/06/24 Source: Developed by Drs. Ace Juan, Joy Green, Tanmay Lopez and colleagues, with an educational radha from [employer]. Physical exam (Primary Care) Tobacco/Smoking Status: Tobacco use Status Tobacco use date assessed 10/24/24 10/24/24 08:48 Patient Tobacco Use Status Former Tobacco user 10/24/24 08:43 e-Cigarette/Vaping Use Never Used 10/24/24 08:43 Thrive Assessment: Date of Thrive Assessment Date Thrive assessed 08/30/24 10/24/24 08:43 Currently or been in a relationship where the following occur: No concerns reported Const Orientation/consciousness: patient oriented x3 HENMT Ears: hearing grossly normal bilaterally Neck Thyroid: Thyroid normal Lymphatic: no lymphadenopathy noted Resp Auscultation: clear to auscultation bilaterally Cardio Rate: regular rate Rhythm: regular rhythm Heart sounds: S1 normal heart sound present and S2 normal heart sound present GI Inspection: Yes normal to inspection Palpation (GI): Soft to palpation and Other GI palpation findings present (nontender, no cva tenderness) Auscultation: normoactive bowel sounds Rectal Exam - Female: deferred Skin General skin exam: no rashes or lesions noted Neuro General: patient oriented x3, gait normal and no focal motor deficits Results Reviewed Results Reviewed: Laboratory Tests 10/15/24 12/03/24 01/18/25 08:10 09:42 08:48 WBC 5.9 RBC 5.05 Hgb 13.7 Hct 42.0 Plt Count 101 L Sodium 141 Potassium 4.5 Chloride 106 Carbon Dioxide 25 Anion Gap 15 BUN 20 H Creatinine 0.82 Estimated GFR > 60 Glucose (Clinic) Hgb A1c (Clinic) 8.9 H Calcium 9.9 Total Bilirubin 0.6 AST 30 36 H ALT 29 38 H Alkaline Phosphatase 102 96 Triglycerides 183 H Cholesterol 157 LDL Cholesterol, Calc 80 HDL Cholesterol 41 TSH 1.48 01/28/25 09:33 WBC RBC Hgb Hct Plt Count Sodium Potassium Chloride Carbon Dioxide Anion Gap BUN Creatinine Estimated GFR Glucose (Clinic) 180 H Hgb A1c (Clinic) Calcium Total Bilirubin AST ALT Alkaline Phosphatase Triglycerides Cholesterol LDL Cholesterol, Calc HDL Cholesterol TSH Coding Level of Care Code Est Pt Level 4 (91062) Complex EM visit Add On G2211 Diagnoses CKD stage 3 due to type 2 diabetes mellitus E11.22; N18.30 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 Hypothyroidism type: due to Hayley's thyroiditis Thrombocytopenia D69.6 HTN (hypertension) I10 Mixed hyperlipidemia E78.2 Hyperlipidemia type: mixed hyperlipidemia Uncontrolled type 2 diabetes mellitus with hyperglycemia, with long-term current use of insulin E11.65; Z79.4 Cirrhosis K74.60 Polyneuropathy associated with underlying disease G63 Peripheral neuropathy type: polyneuropathy associated with underlying disease Trigger finger, right middle finger M65.331 Assessment & Plan Assessment & Plan (1) CKD stage 3 due to type 2 diabetes mellitus: Code(s): E11.22 - Type 2 diabetes mellitus with diabetic chronic kidney disease; N18.30 - Chronic kidney disease, stage 3 unspecified Category: Medical Plan: We will monitor. Avoids NSAIDs. Blood sugars have been better. On Farxiga. At follow up we will discuss starting low-dose PEDRO inhibitor (2) Hypothyroidism: Code(s): E03.9 - Hypothyroidism, unspecified Category: Medical Qualifiers: Hypothyroidism type: due to Hayley's thyroiditis Qualified Code(s): E06.3 - Autoimmune thyroiditis Plan: WNL. Continue current regimen (3) Thrombocytopenia: Code(s): D69.6 - Thrombocytopenia, unspecified Category: Medical Plan: We will monitor (4) HTN (hypertension): Code(s): I10 - Essential (primary) hypertension Category: Medical Plan: WNL. Continue current regimen (5) Hyperlipidemia: Code(s): E78.5 - Hyperlipidemia, unspecified Category: Medical Qualifiers: Hyperlipidemia type: mixed hyperlipidemia Qualified Code(s): E78.2 - Mixed hyperlipidemia Plan: Lipids have improved. (6) Uncontrolled type 2 diabetes mellitus with hyperglycemia, with long-term current use of insulin: Code(s): E11.65 - Type 2 diabetes mellitus with hyperglycemia; Z79.4 - [facility] (current) use of insulin Category: Medical Plan: Improving. No low blood sugars. (7) Cirrhosis: Code(s): K74.60 - Unspecified cirrhosis of liver Category: Medical Plan: Following up annually with GI at [facility] (8) Peripheral neuropathy: Code(s): G62.9 - Polyneuropathy, unspecified Category: Medical Qualifiers: Peripheral neuropathy type: polyneuropathy associated with underlying disease Qualified Code(s): G63 - Polyneuropathy in diseases classified elsewhere Plan: Started B12. We will reassess in 3 months (9) Trigger finger, right middle finger: Code(s): M65.331 - Trigger finger, right middle finger Category: Medical Plan: Referral to ortho Orders: Orders Vitamin B12 and Folate Today D69.6 - Thrombocytopenia, unspecified, E06.3 - Autoimmune thyroiditis, E11.22 - Type 2 diabetes mellitus with diabetic chronic kidney disease, E11.65 - Type 2 diabetes mellitus with hyperglycemia, E78.2 - Mixed hyperlipidemia, I10 - Essential (primary) hypertension, K74.60 - Unspecified cirrhosis of liver, M65.331 - Trigger finger, right middle finger, N18.30 - Chronic kidney disease, stage 3 unspecified, 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.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 TSH reflex Free T4 Today D69.6 - Thrombocytopenia, unspecified, E06.3 - Autoimmune thyroiditis, E11.22 - Type 2 diabetes mellitus with diabetic chronic kidney disease, E11.65 - Type 2 diabetes mellitus with hyperglycemia, E78.2 - Mixed hyperlipidemia, I10 - Essential (primary) hypertension, K74.60 - Unspecified cirrhosis of liver, M65.331 - Trigger finger, right middle finger, N18.30 - Chronic kidney disease, stage 3 unspecified, 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.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 Panel Fast Today D69.6 - Thrombocytopenia, unspecified, E06.3 - Autoimmune thyroiditis, E11.22 - Type 2 diabetes mellitus with diabetic chronic kidney disease, E11.65 - Type 2 diabetes mellitus with hyperglycemia, E78.2 - Mixed hyperlipidemia, I10 - Essential (primary) hypertension, K74.60 - Unspecified cirrhosis of liver, M65.331 - Trigger finger, right middle finger, N18.30 - Chronic kidney disease, stage 3 unspecified, Z79.4 - [facility] (current) use of insulin Complete Blood Count Auto Diff Today D69.6 - Thrombocytopenia, unspecified, E06.3 - Autoimmune thyroiditis, E11.22 - Type 2 diabetes mellitus with diabetic chronic kidney disease, E11.65 - Type 2 diabetes mellitus with hyperglycemia, E78.2 - Mixed hyperlipidemia, I10 - Essential (primary) hypertension, K74.60 - Unspecified cirrhosis of liver, M65.331 - Trigger finger, right middle finger, N18.30 - Chronic kidney disease, stage 3 unspecified, Z79.4 - [facility] (current) use of insulin Microalbumin, Random (w Creat) Today D69.6 - Thrombocytopenia, unspecified, E06.3 - Autoimmune thyroiditis, E11.22 - Type 2 diabetes mellitus with diabetic chronic kidney disease, E11.65 - Type 2 diabetes mellitus with hyperglycemia, E78.2 - Mixed hyperlipidemia, I10 - Essential (primary) hypertension, K74.60 - Unspecified cirrhosis of liver, M65.331 - Trigger finger, right middle finger, N18.30 - Chronic kidney disease, stage 3 unspecified, 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
--- OUTSIDE RECORDS SUMMARY | 2025-01-30 08:41 | XMS_ITS | Clinical Summary ---
Author Organization [address] [place] [address] Address [address] [place] [address] Phone Care Team Providers Care Fire Hose Curer Name Role Phone Candice Zhang Primary Care Provider [phone] Allergies No known active allergies Encounters Date Type Department Care Team Description 12/11/2024 9:45 AM EDT Consult Orthopedic Surgery [facility] [address] [place] [id number] Tano Joyce DPM Controlled type 2 diabetes mellitus with diabetic polyneuropathy, without long-term current use of insulin (CMS/[facility] V24, CMS/HCC V28) (Primary Dx); Pain in [...] Upcoming Encounters Date Type Department Care Team ([facility] Contact Info) Description 02/06/2025 8:45 AM EDT Office Visit Orthopedic [facility] [address] [address] Tano Joyce DPM 175 [facility] [address] [place] [address] Health Maintenance Due Date Last Done Comments [...] Insurance MEDICARE MEDICAID - [place] Care Teams Fire Hose Curer Relationship Specialty Start Date End Date Candice Zhang PA [address] [place] [address] PCP - General Physician Salary Manager 10/08/24
== END 2025-01-30 09:05 | disposition home or self-care (01) ==
LOC: HO.HMCFM 08:29
PROVIDERS: PCP Physician Assistant; Visit Provider Physician Assistant
DX: I12.9 Hypertensive chronic kidney disease with stage 1 through stage 4 chronic kidney disease, or unspecified chronic kidney disease (principal); E11.22 Type 2 diabetes mellitus with diabetic chronic kidney disease; N18.30 Chronic kidney disease, stage 3 unspecified; E11.65 Type 2 diabetes mellitus with hyperglycemia; Z79.4 Long term (current) use of insulin; K74.60 Unspecified cirrhosis of liver; E06.3 Autoimmune thyroiditis; D69.6 Thrombocytopenia, unspecified; E78.2 Mixed hyperlipidemia; G63 Polyneuropathy in diseases classified elsewhere; M65.331 Trigger finger, right middle finger

== ENCOUNTER → 2025-01-30 08:29 | Outpatient (BNVA) | payer MEDICARE, MEDICAID, SELFPAY | PROVIDERS: PCP Physician Assistant; Visit Provider Physician Assistant | DX: Z12.9 Encounter for screening for malignant neoplasm, site unspecified (principal); E11.22 Type 2 diabetes mellitus with diabetic chronic kidney disease; N18.30 Chronic kidney disease, stage 3 unspecified; E06.3 Autoimmune thyroiditis; D69.6 Thrombocytopenia, unspecified; E78.2 Mixed hyperlipidemia; E11.65 Type 2 diabetes mellitus with hyperglycemia; K74.60 Unspecified cirrhosis of liver; G63 Polyneuropathy in diseases classified elsewhere; M65.331 Trigger finger, right middle finger; Z79.4 Long term (current) use of insulin | CPT/HCPCS: 99212 ==

== ENCOUNTER 2025-03-01 09:08 | Outpatient (AMB) | payer MEDICARE, MEDICAID, SELFPAY ==
[2025-03-01 09:19] VITALS: BMI 29.7
--- NOTE | 2025-03-01 09:19 | A.OFFVIS_ITS ---
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 Patient reports she has been experiencing lacking and catching for 2 months. She feels there is a tendon sticking out in the same area, occasionally causing pain all the way to the elbow. She also complains of numbness and tingling in multiple fingers, primarily her right thumb. Denies previous surgeries or recent injuries to the right hand. Allergies codeine Allergy (Mild, Verified 03/01/25 09:22) heart races shellfish Allergy (Unknown, Uncoded 03/01/25 09:22) joint swelling codiene Allergy (Uncoded 03/01/25 09:22) Unknown [facility] Medical History (Updated 03/01/25 @ 13:21 by TIANA Wallace) Hypothyroidism Surgical History History of partial hysterectomy History of cholecystectomy Family History Brother Substance abuse Mother Liver cancer Sister Lung cancer Social History Housing: House Alcohol intake: current Patient Tobacco Use Status: Former Tobacco user Cigarette Packs Per Day: 1 Years Smoked: 25 e-Cigarette/Vaping Use: Never Used Second Hand Smoke Exposure: No service: Yes Current occupational status: retired Cognitive needs: No Hearing needs: Yes (hearing loss) Vision needs: No Physical Exam Vital Signs: BMI result Body Mass Index 29.7 Assessment & Plan Assessment & Plan (1) Trigger finger, right middle finger: Code(s): M65.331 - Trigger finger, right middle finger Category: Medical (2) Numbness and tingling of right hand: Code(s): R20.0 - Anesthesia of skin; R20.2 - Paresthesia of skin Category: Medical Plan History of Present Illness The patient is a 74-year-old female presenting with a trigger finger of the right middle finger. The finger locks and catches, causing significant pain that radiates up the arm, described as severe. The condition is due to a swollen tendon passing through a jamie, leading to the locking and catching. The patient has experienced this issue for an unspecified duration, with no improvement from conservative measures. The patient also reports numbness and tingling in the hand, particularly in the fingers, described as a funny kind of picky feeling. There is diminished sensation at the tips of all digits, and massage has not provided relief. The patient has a history of diabetes mellitus, with recent blood sugar levels reported as high, including a current reading of 204 mg/dL. The patient is aware of the potential complications of elevated blood glucose levels, particularly concerning the proposed treatment options. Review of Systems - Musculoskeletal: Reports finger locking and catching with pain radiating up the arm. - Neurological: Reports numbness and tingling in the fingers, described as a funny kind of picky feeling. - Endocrine: Reports high blood sugar levels, with a current reading of 204 mg/dL. Systems reviewed and are negative except as per HPI and below Physical Exam - Musculoskeletal: Tenderness noted in the finger with palpable tendon swelling. There is visible and palpable locking and catching of the right middle finger - Neurological: Diminished sensation at the tips of all digits. Results Procedure Plan The plan for the trigger finger includes considering a steroid injection into the tendon sheath, which has a 50% chance of providing permanent relief. Alternatively, a minor surgical procedure under local anesthesia, known as a trigger release, offers a 98% chance of resolving the issue permanently. Due to the patient's elevated blood sugar levels, neither the injection nor the surgery can be performed safely at this time. The patient is advised to monitor blood glucose levels closely and aim to maintain them below 130-140 mg/dL to proceed with treatment. For the numbness and tingling, an EMG and nerve conduction study are recommended to assess the health of the nerves and determine the cause, such as carpal tunnel syndrome or cubital tunnel syndrome. The patient is informed about the procedure and its purpose, despite its discomfort. In the interim, a ring splint is suggested to prevent the finger from locking and catching, especially at night. The patient is encouraged to keep the finger moving during the day to avoid stiffness. Patient was informed and verbally consented to the use of an ambient scribe for clinic note documentation during this visit. Discussion Notes I discussed with the patient the diagnosis of trigger finger and the treatment options available, including a steroid injection and a minor surgical procedure called trigger release. I explained the risks and benefits of each option, noting the success rates of 50% for the injection and 98% for the surgery. Due to the patient's elevated blood sugar levels, I advised against proceeding with either treatment until blood glucose levels are better controlled. I recommended close monitoring of blood sugar levels and discussed the potential for an EMG and nerve conduction study to evaluate the numbness and tingling in the hand. I suggested using a ring splint at night to prevent the finger from locking and catching, and emphasized the importance of keeping the finger mobile during the day. Patient Instructions - Monitor blood sugar levels closely and aim to keep them below 130-140 mg/dL. - Consider using a ring splint at night to prevent finger locking and catching. - Keep the finger moving during the day to avoid stiffness. - Follow up for an EMG and nerve conduction study to assess the cause of numbness and tingling. Coding Level of Care Code New Pt Level 3 (29663) Diagnoses Trigger finger, right middle finger M65.331 Numbness and tingling of right hand R20.0; R20.2
--- OUTSIDE RECORDS SUMMARY | 2025-03-01 09:23 | XMS_ITS | Clinical Summary ---
Author Organization 175 [facility] Address [address] [place] [address] Phone Care Team Providers Care Charter Driver Name Role Phone Candice Zhang Primary Care Provider [phone] Allergies No known active allergies Encounters Date Type Department Care Team Description 12/11/2024 9:45 AM EDT Consult Orthopedic Surgery [facility] [address] [phone] Tano Joyce, MARILIN Controlled type 2 diabetes mellitus with diabetic [...] 12/11/2024 10:24 AM EDT Plan of Treatment Health Maintenance Due Date Last Done Comments [...] Influencers of Health Screening 10/08/2024 Influenza Vaccine (#1) 2025 06/05/2024 RSV Immunization Adult Patients Completed HIB [...] Insurance MEDICARE MEDICAID - [place] Care Teams Charter Driver Relationship Specialty Start Date End Date Candice Zhang PA [address] [place] [address] PCP - 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
== END 2025-03-01 09:37 | disposition home or self-care (01) ==
PROVIDERS: PCP Physician Assistant
DX: M65.331 Trigger finger, right middle finger (principal); R20.0 Anesthesia of skin; R20.2 Paresthesia of skin
CPT/HCPCS: 99203

== ENCOUNTER → 2025-03-01 09:08 | Outpatient (BNVA) | payer MEDICARE, MEDICAID, SELFPAY | PROVIDERS: PCP Physician Assistant | DX: M65.331 Trigger finger, right middle finger (principal); R20.0 Anesthesia of skin; R20.2 Paresthesia of skin | CPT/HCPCS: 99202 ==

== ENCOUNTER 2025-04-23 07:57 | Outpatient (REF) | payer MEDICARE, MEDICAID, SELFPAY ==
--- OUTSIDE RECORDS SUMMARY | 2025-04-23 08:04 | XMS_ITS | Patient Health Record ---
Author Organization [facility] Address [address] [place] [address] Care Team Providers Care Second Worker Name Role Phone a, n Primary Care Provider Chloe Rivera MD, [facility] Unavailable [phone] Allergies Allergen (clinical drug ingredient) Drug/Non Drug Allergy documented on EMR Reaction Allergy Type Onset Date Status Iodine (uncoded) Unknown Allergy Act salomon Shellfish (FN) Shellfish (uncoded) Unknown Allergy Active Reason For Referral No Information Medications Medication SIG (Take, Route, Fr equency, Duration) Notes Start Date End Date Status Vitamin D Active Fish Oil Active Baclofen Active Vitamin B 12 Active Levothyroxine Sodium Active Metoprolol Tartrate Active metFORMIN HCl Active glipiZIDE Active Valsartan Active Plan Of Treatment No Information Insurance Providers Payer Name Payer Address Payer Phone Subscriber Number Group Number Insured Name Patient Relationship to Insured Coverage Start Date Coverage End Date [employer] [place] [employer] [address] [address] [place] [phone] [id number] RafaelUmu Self - patient is the insured [facility] Medicare Supplement 00 [address] [place] [address] [id number] RafaelMarcelaa Self - patient is the insured Medical (General) History Medical History History ICD Code Diabetes mellitus - Type II HLD Thyroid disorder HTN Back pain/muscle spasms
--- OUTSIDE RECORDS SUMMARY | 2025-04-23 08:04 | XMS_ITS | Clinical Summary ---
Author Organization [address] [facility] Address [address] [place] [address] Phone Care Team Providers Care Rehab Nurse Name Role Phone Candice Zhang Primary Care Provider [phone] Allergies No known active allergies Social History Tobacco Use Types Packs/Day Years [...] Health Maintenance Due Date Last Done Comments DTaP,Tdap,and Td Vaccines (1 - Tdap) 11/22/1967 Pneumococcal Vaccine: 50+ Ye ars (1 of 2 - PCV) 11/22/1967 Zoster Vaccines (1 of 2) 1998 COVID-19 Vaccine ( - 2023-2 5 season) 2024 Depression Screening 08/22/2024 Falls Risk Assessment 10/08/2024 Hepatitis C Screening [...] Insurance MEDICARE [place] - [place] Care Teams Rehab Nurse Relationship Specialty Start Date End Date Candice Zhang PA [address] [place] [address] PCP - General Physician Deliverer Outside 10/08/24
[2025-04-23 10:50] LABS: MANUAL DIFF FLAG NO
[2025-04-23 10:57] LABS: Hematocrit 44.9 % (37.0-47.0); Hemoglobin 14.4 g/dl (12.0-16.0); Imm Gran Abs Auto 0.03 X10*3/uL (0.00-0.03); Imm Gran Pct Auto 0.4 % (0.0-0.4); Lymphocytes Absolute Auto 1.4 X10*3/uL (1.2-4.9); Mean Corpuscular HGB Conc 32.1 g/dl (31.0-35.0); Mean Corpuscular Hemoglobin 26.3 pg (27.0-33.0); Mean Corpuscular Volume 82.1 fL (80.0-98.0); NRBC Abs Auto 0.000 X10*3/uL (0.0-0.012); NRBC Pct Auto 0.0 /100WBC (0.0-0.2); Platelet Count 110 X10*3/uL (160-400); Red Blood Count 5.47 X10*6/uL (4.20-5.50); White Blood Count 7.0 X10*3/uL (4.8-10.8)
[2025-04-23 11:08] LABS: Hemoglobin A1C 200.2002 umol/L; Total Hemoglobin (HGBA1C) 3728.5668 umol/L
[2025-04-23 11:51] LABS: Folate 9.9 ng/mL (> or = 4.0); Vitamin B12 757 pg/mL (200-900)
[2025-04-23 13:02] LABS: Microalbum/Creatinine Ratio Ur 73.3 ug/mg cr (<30)
[2025-04-23 13:24] LABS: Alanine Aminotransferase 34 U/L (0-31); Albumin Level 4.4 g/dL (3.5-5.0); Alkaline Phosphatase 125 U/L (39-117); Anion Gap 16 (12-20); Aspartate Amino Transferase 40 U/L (5-31); Blood Urea Nitrogen 23 mg/dL (9-16); Calcium 9.7 mg/dL (8.4-10.2); Carbon Dioxide 25 mmol/L (22-29); Chloride 102 mmol/L (96-108); Cholesterol 138 mg/dL (<200); Estimated Glomerular Filt Rate > 60; HDL Cholesterol 37 mg/dL (>40); Potassium 4.6 mmol/L (3.3-5.1); Sodium 138 mmol/L (135-145); Total Protein 7.5 g/dL (6.5-8.0); Triglycerides 223 mg/dL (<150)
== END 2025-04-23 07:58 | disposition home or self-care (01) ==
LOC: HO.HMGCLDS 07:57
PROVIDERS: PCP Physician Assistant; Visit Provider Student in an Organized Health Care Education/Training Program
DX: I12.9 Hypertensive chronic kidney disease with stage 1 through stage 4 chronic kidney disease, or unspecified chronic kidney disease (principal); E11.22 Type 2 diabetes mellitus with diabetic chronic kidney disease; N18.30 Chronic kidney disease, stage 3 unspecified; E11.65 Type 2 diabetes mellitus with hyperglycemia; E78.2 Mixed hyperlipidemia; K74.60 Unspecified cirrhosis of liver; M65.331 Trigger finger, right middle finger; E06.3 Autoimmune thyroiditis; D69.6 Thrombocytopenia, unspecified; Z79.4 Long term (current) use of insulin
CPT/HCPCS: 36415; 80053; 80061; 82043; 82570; 82607; 82746; 83036; 84443; 85025

== ENCOUNTER 2025-05-08 08:35 | Outpatient (AMB) | payer MEDICARE, MEDICAID, SELFPAY ==
--- NOTE | 2025-05-08 08:40 | A.OFFPC_ITS ---
Vital Signs 05/08/25 08:41 Height 5 ft 1.89 in Weight 161 lb 2 oz BMI 29.6 BP 124/64 Blood Pressure Location Rt brachial Position Sitting Respiration 14 Pulse 78 Pulse Source Pulse Oximeter Pulse Oximetry (%) 97 Oxygen Delivery Method Room Air Intake Visit Reasons: labs, bp check, meds Intake Note: Blood pressure follow up. Lab results. Latin American Studies Director Required: No Allergies codeine Allergy (Mild, Verified 05/08/25 08:40) heart races shellfish Allergy (Unknown, Uncoded 05/08/25 08:40) joint swelling codiene Allergy (Uncoded 05/08/25 08:40) Unknown Medication List - Last Reconciled 05/08/25 by Candice Zhang PA-C 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 sensor (FreeStyle Everton 3 Sensor device) Apply every 14 days As directed to monitor blood glucose 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 sensor (FreeStyle Everton 3 Plus Sensor device) Use daily As directed to monitor glucose 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,fourth mate,cont (FreeStyle Everton 3 [place]) Use daily As directed to monitor blood glucose cetirizine (Zyrtec) 10 mg PO DAILY [coqu10 .] dapagliflozin propanediol (Farxiga) 5 mg PO DAILY dulaglutide (Trulicity) 3 mg (0.5 mL) subcut QWEEK fluticasone propionate 50 mcg/actuation (Flonase Allergy Relief) 1 spray intranasal BID glucose (Dex4 Glucose) 16 grams (4 x 4 gram) PO Q15M PRN insulin glargine (Lantus Solostar U-100 Insulin) 30 units (0.3 mL) subcut QPM levothyroxine 50 mcg PO DAILY metformin 1,000 mg PO BID 90 days metoprolol succinate ER 100 mg PO DAILY pen needle, diabetic (BD Desi 2nd Gen Pen Needle) Use BID As directed rosuvastatin 10 mg PO DAILY triamcinolone acetonide 0.025% 1 appl topical BID [vitamin B PO] Tobacco use date assessed: 01/30/25 Dental Screening Dental Screen Date: 09/06/24 HPI labs, bp check, meds HPI Details Patient is a 74-year-old female with a significant past medical history of cirrhosis, hypertension, depression, hyperlipidemia and type 2 diabetes presenting today for a follow up. She states for the last 6 weeks she has had cold like sx. She states it started as a cough/ normal cold but the last two weeks she has had right sinus pain and pressure with post nasal drip. She states it does not feel like it is in her chest. She states the phlegm was previously clear but now the nasal drainge is yellow/green. No fever or chills. No wheezing or shortness on breath. No known sick contacts. She thought it was allergy so she was also taking Zyrtec and Flonase but there has been no improvement of symptoms. She is also using sinus cold and flu relief [id number]. General: just started vitamin B12. Seeing family in [place] and [place] this summer. MSK: Complains today of her right middle finger getting stuck. She states that she has to constantly rub her finger and pull it back open. Endo: She was diagnosed with diabetes around 1994. Her last A1c was 7.1. (down from 8.9). She is on Lantus 30 units, Trulicity 3 mg weekly and metformin 1000 mg twice a day and farxiga 5 mg daily. -trulicity is causing injection site sangita n/bruising and irritation. cgm- hyperglycemic 46%, in range 54%. no hypoglycemia. average glucose 191. She states that this summer her diet was a lot worse than it normally is. She traveled a lot and was eating a lot of chips, onion rolls, and sweet corn. She has had dm education. has follow up 05/27 with endo. hypothyroid- last tsh wnl. on levothyroxine 50 mcg CV: Blood pressure today in the office is 124/74. She is currently on metoprolol 100 mg daily. Not on an PEDRO-inhibitor. Cholesterol is controlled with Crestor 10 mg. GI: Pt was told while living in [place] she had cirrhosis. Liver ultrasound here was concerning for advanced fibrosis. patient was evaluated by GI at [facility], TIANA Ochoa, was told needs to follow up every 6 months. She is scheduled for an ultrasound with [facility] in May. Psych: She reports feeling better. She is going to [place] for Thanksgiving with her daughter and son, [facility] for [employer] with her daughter. She just got back from a trip visiting her grandchildren in [place]. Mammo: does not want anymore Colonoscopy: a couple years ago Bone density: osteopenia- 2024 Sister had lung cancer Maternal grandmother had pancreatic ca Mother had liver ca - not a drinkre [facility] Medical History (Updated 05/08/25 @ 08:56 by Candice Zhang PA-C) Hypothyroidism Surgical History History of partial hysterectomy History of cholecystectomy Family History Brother Substance abuse Mother Liver cancer Sister Lung cancer Social History Housing: House Alcohol intake: current Patient Tobacco Use Status: Former Tobacco user Cigarette Packs Per Day: 1 Years Smoked: 25 e-Cigarette/Vaping Use: Never Used Second Hand Smoke Exposure: No service: Yes Current occupational status: retired Cognitive needs: No Hearing needs: Yes (hearing loss) Vision needs: No Questionnaire Thrive Questionnaire Date Thrive assessed: 08/30/24 I am a: Patient What is your living situation today?: I have a steady place to live Within the past 12 months, did the food you bought not last and you didn't have the money to get more?: Never true Within the past 12 months, did you worry whether your food would run out before you got money to buy more?: Never true Do you have trouble paying for medicines?: No Do you have trouble getting transportation to medical appointments?: No Do you have trouble paying your heating and electricity bill?: No Do you have trouble taking care of your child, family member or friend?: No Do you have trouble with day-to-day activities such as bathing, preparing meals, shopping, managing finances, etc.?: No Are you currently unemployed and looking for a job?: No Are you interested in more education?: No Please select the resources that you would like help with: None Currently or been in a relationship where the following occur: No concerns reported THRIVE Score: 0 RAFAELA-7 AMB Questionnaire RAFAELA-7 Date RAFAELA - 7 assessed: 09/06/24 Source: Developed by Drs. Ace Juan, Joy rGeen, Tanmay Lopez and colleagues, with an educational radha from [employer]. Physical exam (Primary Care) Tobacco/Smoking Status: Tobacco use Status Tobacco use date assessed 01/30/25 01/30/25 08:42 Patient Tobacco Use Status Former Tobacco user 01/30/25 08:42 e-Cigarette/Vaping Use Never Used 01/30/25 08:42 Thrive Assessment: Date of Thrive Assessment Date Thrive assessed 08/30/24 01/30/25 08:42 Currently or been in a relationship where the following occur: No concerns reported Const Orientation/consciousness: patient oriented x3 HENMT Other: TMs dome shaped with small airfluid levels, nasal mucosa erythematous and edematous, right sinus maxillary tenderness present Ears: hearing grossly normal bilaterally Neck Thyroid: Thyroid normal Lymphatic: no lymphadenopathy noted Resp Other: scattered rhonchi noted initially which clears with coughing Auscultation: clear to auscultation bilaterally Cardio Rate: regular rate Rhythm: regular rhythm Heart sounds: S1 normal heart sound present and S2 normal heart sound present GI Inspection: Yes normal to inspection Palpation (GI): Soft to palpation and Other GI palpation findings present (nontender, no cva tenderness) Auscultation: normoactive bowel sounds Rectal Exam - Female: deferred Skin General skin exam: no rashes or lesions noted Neuro General: patient oriented x3, gait normal and no focal motor deficits Results Reviewed Results Reviewed: Laboratory Tests 04/23/25 08:01 WBC 7.0 RBC 5.47 Hgb 14.4 Hct 44.9 Plt Count 110 L Sodium 138 Potassium 4.6 Chloride 102 Carbon Dioxide 25 Anion Gap 16 BUN 23 H Creatinine 0.83 Estimated GFR > 60 Fasting Glucose 144 H Hemoglobin A1c % 7.1 H Calcium 9.7 Total Bilirubin 0.5 AST 40 H ALT 34 H Alkaline Phosphatase 125 H Total Protein 7.5 Albumin 4.4 Triglycerides 223 H Cholesterol 138 LDL Cholesterol, Calc 57 HDL Cholesterol 37 L TSH 1.57 Coding Level of Care Code Est Pt Level 4 (37415) Complex EM visit Add On G2211 Diagnoses Bacterial sinusitis J32.9; B96.89 HTN (hypertension) I10 Mixed hyperlipidemia E78.2 Hyperlipidemia type: mixed hyperlipidemia Uncontrolled type 2 diabetes mellitus with hyperglycemia, with long-term current use of insulin E11.65; Z79.4 Assessment & Plan Assessment & Plan (1) Bacterial sinusitis: Code(s): J32.9 - Chronic sinusitis, unspecified; B96.89 - Other specified bacterial agents as the cause of diseases classified elsewhere Category: Medical Plan: will start augmentin and flonase. We discussed it can cause gi upset. SHe will let me know if sx do not resolve cxr ordered given intermittent cough, lungs sound clear (2) HTN (hypertension): Code(s): I10 - Essential (primary) hypertension Category: Medical Plan: wnl continue current plan (3) Hyperlipidemia: Code(s): E78.5 - Hyperlipidemia, unspecified Category: Medical Qualifiers: Hyperlipidemia type: mixed hyperlipidemia Qualified Code(s): E78.2 - Mixed hyperlipidemia Plan: discussed adding zetia but wants to wait discussed importance of controlling dm (4) Uncontrolled type 2 diabetes mellitus with hyperglycemia, with long-term current use of insulin: Code(s): E11.65 - Type 2 diabetes mellitus with hyperglycemia; Z79.4 - assistant terminal manager (current) use of insulin Category: Medical Plan: d/c trulicity start mounjaro 2.5 mg weekly continue metformin 1000 mg, farxiga 5 mg daily increase lantus to 35 units Orders: Orders Hemoglobin A1c Today E11.65 - Type 2 diabetes mellitus with hyperglycemia, E78.2 - Mixed hyperlipidemia, I10 - Essential (primary) hypertension, R73.01 - Impaired fasting glucose, Z79.4 - assistant terminal manager (current) use of insulin Complete Blood Count Auto Diff Today E11.65 - Type 2 diabetes mellitus with hyperglycemia, E78.2 - Mixed hyperlipidemia, I10 - Essential (primary) hypertension, Z79.4 - intermediate (current) use of insulin XR chest 2V Today R05.9 - Cough, unspecified Comprehensive Mcdaniel. Panel Fast Today E11.65 - Type 2 diabetes mellitus with hyperglycemia, E78.2 - Mixed hyperlipidemia, I10 - Essential (primary) hypertension, Z79.4 - intermediate (current) use of insulin TSH reflex Free T4 Today E11.65 - Type 2 diabetes mellitus with hyperglycemia, E78.2 - Mixed hyperlipidemia, I10 - Essential (primary) hypertension, Z79.4 - assistant terminal manager (current) use of insulin Lipid Panel Today E11.65 - Type 2 diabetes mellitus with hyperglycemia, E78.2 - Mixed hyperlipidemia, I10 - Essential (primary) hypertension, Z79.4 - assistant terminal manager (current) use of insulin Medications: New tirzepatide (Mounjaro) 2.5 mg (0.5 mL) subcut QWEEK 2 mL 3RF amoxicillin-pot clavulanate 875-125 mg 1 tab PO Q12H 20 tabs 0RF Changed From insulin glargine (Lantus Solostar U-100 Insulin) 30 units (0.3 mL) subcut QPM 15 mL 2RF To insulin glargine (Lantus Solostar U-100 Insulin) 35 units (0.35 mL) subcut QPM 15 mL 2RF Discontinued dulaglutide (Trulicity) Discontinued Reason: Doctor's Order 3 mg (0.5 mL) subcut QWEEK 2 mL 3RF
[2025-05-08 08:41] VITALS: BP 124/64; PULSE 78; RESP 14; O2SAT 97; BMI 29.6
--- OUTSIDE RECORDS SUMMARY | 2025-05-08 09:50 | XMS_ITS | Clinical Summary ---
Author Organization [facility] Address [address] [place] [address] Phone Care Team Providers Care Wastewater Treatment Plant Chemist Name Role Phone Candice Zhang Primary Care Provider [phone] Allergies No known active allergies Social History [...] 11/22/1967 Zoster Vaccines (1 of 2) 1998 Depression Screening 08/22/2024 Falls Risk Assessment 10/08/2024 Hepatitis C Screening 10/08/2024 Medicare Annual Wellness Visit 10/08/2024 Osteoporosis Screening (Bone Density Screening) 10/08/2024 Social Influencers of Health Screening 10/08/2024 COVID-19 Vaccine (1 - 2023-2 5 season) 2025 Influenza Vaccine (#1) 2025 06/05/2024 RSV Immunization [...] Insurance MEDICARE MEDICAID - [place] Care Teams Wastewater Treatment Plant Chemist Relationship Specialty Start Date End Date Candice Zhang PA [address] [place] [address] PCP - General Physician [place] Attendant 10/08/24
--- OUTSIDE RECORDS SUMMARY | 2025-05-08 09:50 | XMS_ITS | Patient Health Record ---
Author Organization [facility] Address [address] [place] [address] Care Team Providers Care Recycler Name Role Phone a, n Primary Care Provider Chloe Rivera MD, [facility] Unavailable [phone] Allergies Allergen (clinical drug ingredient) Drug/Non Drug [...] [place] [facility] [employer] [address] [address] [place] [address] [phone] [id number] Rafael Umu Self - patient is the insured [facility] Medicare Supplement 00 [address] [place] [address] [id number] Rafael Umu Self - patient is the insured Medical (General) History Medical History History ICD Code Diabetes mellitus - Type II HLD Thyroid disorder HTN Back pain/muscle spasms
== END 2025-05-08 09:06 | disposition home or self-care (01) ==
LOC: HO.HMCFM 08:35
PROVIDERS: PCP Physician Assistant; Visit Provider Physician Assistant
DX: J32.9 Chronic sinusitis, unspecified (principal); E11.65 Type 2 diabetes mellitus with hyperglycemia; Z79.4 Long term (current) use of insulin; B96.89 Other specified bacterial agents as the cause of diseases classified elsewhere; I10 Essential (primary) hypertension; E78.2 Mixed hyperlipidemia

== ENCOUNTER 2025-05-08 08:35 | Outpatient (REF) | payer MEDICARE, MEDICAID, SELFPAY ==
--- NOTE | ~2025-05-08 | XR_ITS ---
EXAMINATION: XR CHEST 2 VIEWS HISTORY: R05.9 - Cough, unspecified COMPARISON: There are no prior studies available for comparison. FINDINGS: PA and lateral views of the chest are submitted. The lungs are expanded and clear. There is no pleural effusion, pneumothorax, or pulmonary vascular congestion. The heart is normal in size. There is degenerative disc disease of the spine. XR/XR chest 2V IMPRESSION: Clear lungs. Electronically signed by: Ace Guo MD 05/08/2025 09:45 AM EDT
== END 2025-05-08 08:36 | disposition home or self-care (01) ==
LOC: HO.HMGCX 08:35
PROVIDERS: PCP Physician Assistant; Visit Provider Physician Assistant
DX: R05.9 Cough, unspecified (principal); J32.9 Chronic sinusitis, unspecified; B96.89 Other specified bacterial agents as the cause of diseases classified elsewhere; I10 Essential (primary) hypertension; E78.2 Mixed hyperlipidemia; E11.65 Type 2 diabetes mellitus with hyperglycemia; Z79.4 Long term (current) use of insulin
CPT/HCPCS: 71046; 99212

== ENCOUNTER → 2025-05-08 09:35 | Outpatient (BNV) | payer MEDICARE, MEDICAID, SELFPAY | PROVIDERS: PCP Physician Assistant; Visit Provider Radiology Diagnostic Radiology | DX: R05.9 Cough, unspecified (principal) | CPT/HCPCS: 71046 ==

== ENCOUNTER → 2025-05-27 11:26 | Outpatient (BNVA) | payer MEDICARE, MEDICAID, SELFPAY | PROVIDERS: PCP Physician Assistant; Visit Provider Student in an Organized Health Care Education/Training Program | DX: Z13.89 Encounter for screening for other disorder (principal) | CPT/HCPCS: 82947 ==

== ENCOUNTER 2025-07-29 08:08 | Outpatient (REF) | payer MEDICARE, MEDICAID, SELFPAY ==
[2025-07-29 10:47] LABS: MANUAL DIFF FLAG NO
[2025-07-29 11:20] LABS: Hematocrit 44.2 % (37.0-47.0); Hemoglobin 14.0 g/dl (12.0-16.0); Imm Gran Abs Auto 0.01 X10*3/uL (0.00-0.03); Imm Gran Pct Auto 0.2 % (0.0-0.4); Lymphocytes Absolute Auto 1.3 X10*3/uL (1.2-4.9); Mean Corpuscular HGB Conc 31.7 g/dl (31.0-35.0); Mean Corpuscular Hemoglobin 26.0 pg (27.0-33.0); Mean Corpuscular Volume 82.2 fL (80.0-98.0); NRBC Abs Auto 0.000 X10*3/uL (0.0-0.012); NRBC Pct Auto 0.0 /100WBC (0.0-0.2); Red Blood Count 5.38 X10*6/uL (4.20-5.50); White Blood Count 5.4 X10*3/uL (4.8-10.8)
[2025-07-29 11:25] LABS: Platelet Count 98 X10*3/uL (160-400)
[2025-07-29 11:33] LABS: Alanine Aminotransferase 29 U/L (0-31); Albumin Level 4.3 g/dL (3.5-5.0); Alkaline Phosphatase 96 U/L (39-117); Anion Gap 11 (12-20); Aspartate Amino Transferase 34 U/L (5-31); Blood Urea Nitrogen 25 mg/dL (9-16); Calcium 9.5 mg/dL (8.4-10.2); Carbon Dioxide 28 mmol/L (22-29); Chloride 106 mmol/L (96-108); Cholesterol 160 mg/dL (<200); Estimated Glomerular Filt Rate > 60; HDL Cholesterol 47 mg/dL (>40); Potassium 4.7 mmol/L (3.3-5.1); Sodium 140 mmol/L (135-145); Total Protein 7.4 g/dL (6.5-8.0); Triglycerides 153 mg/dL (<150)
[2025-07-29 12:02] LABS: Vitamin B12 838 pg/mL (200-900)
== END 2025-07-29 08:09 | disposition home or self-care (01) ==
LOC: HO.HMGCLDS 08:08
PROVIDERS: Absent Provider Student in an Organized Health Care Education/Training Program; PCP Physician Assistant; Visit Provider Physician Assistant
DX: I10 Essential (primary) hypertension (principal); E78.2 Mixed hyperlipidemia; E11.65 Type 2 diabetes mellitus with hyperglycemia; Z79.4 Long term (current) use of insulin
CPT/HCPCS: 36415; 80053; 80061; 82607; 83036; 84443; 85025

== ENCOUNTER 2025-08-08 08:10 | Outpatient (AMB) | payer MEDICARE, MEDICAID, SELFPAY ==
--- NOTE | 2025-08-08 08:17 | A.OFFPC_ITS ---
Vital Signs 08/08/25 08:21 Height 5 ft 1.89 in Weight 162 lb BMI 29.7 BP 122/68 Blood Pressure Location Rt brachial Position Sitting Respiration 14 Pulse 63 Pulse Source Pulse Oximeter Temp 97.6 F Temp Source Oral Pulse Oximetry (%) 99 Oxygen Delivery Method Room Air Intake Visit Reasons: dm, bp, med cehck Intake Note: Follow up Dopeman Required: No Allergies codeine Allergy (Mild, Verified 08/08/25 08:22) heart races shellfish Allergy (Unknown, Uncoded 08/08/25 08:22) joint swelling codiene Allergy (Uncoded 08/08/25 08:22) Unknown Medication List - Last Reconciled 08/08/25 by Candice Zhang PA-C 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 sensor (FreeStyle [place] 3 Sensor device) Apply every 14 days As directed to monitor blood glucose 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 sensor (FreeStyle Everton 3 Plus Sensor device) Use daily As directed to monitor glucose 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,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,cont (FreeStyle [place] 3 [place]) Use daily As directed to monitor blood glucose [coqu10 .] dapagliflozin propanediol (Farxiga) 5 mg PO DAILY fluticasone propionate 50 mcg/actuation (Flonase Allergy Relief) 1 spray intranasal BID glucose (Dex4 Glucose) 16 grams (4 x 4 gram) PO Q15M PRN insulin glargine (Lantus Solostar U-100 Insulin) 35 units (0.35 mL) subcut QPM levothyroxine 50 mcg PO DAILY metformin 1,000 mg PO BID 90 days metoprolol succinate ER 100 mg PO DAILY miconazole nitrate 2% (Monistat 7) 1 appful vaginal BEDTIME 7 days pen needle, diabetic (BD Desi 2nd Gen Pen Needle) Use BID As directed [probiotic PO] rosuvastatin 10 mg PO DAILY tirzepatide (Mounjaro) 5 mg (0.5 mL) subcut QWEEK triamcinolone acetonide 0.025% 1 appl topical BID [vitamin B PO] Tobacco use date assessed: 01/30/25 Dental Screening Dental Screen Date: 09/06/24 HPI dm, bp, med cehck HPI Details Patient is a 74-year-old female with a significant past medical history of cirrhosis, hypertension, depression, hyperlipidemia and type 2 diabetes presenting today for a follow up. General: on vitamin B12. MSK: Complains today of her right middle finger getting stuck. She states that she has to constantly rub her finger and pull it back open. She went to hand specialist and states was told no injection unless her a1c was less than 7. She says that she is frustrated by this and probably going to go to a different orthopedic surgeon. Her A1c is 7.3. -she also complains today of right leg p ain and swelling. She states that sometimes it is painful but the pain is usually there when the leg is very swollen. She states that since May she has noticed that her right lower leg has been more swollen. She states that it is mostly in the ankle but extends by the end of the day almost to her knee. She states that sometimes it feels tight/painful when she is walking in the calf. There was no trauma. No overlying redness that she has noticed. She did try a diuretic and did not notice a significant improvement. She is not interested in a significant workup of this but would like to make sure that there is nothing significant. Her left leg appears to be WNL. There is no chest pain or shortness on breath. It is usually a little bit better in the morning and worse by the end of the day. Endo: She was diagnosed with diabetes around 1994. Her last A1c was 7.3. She is on Lantus 35 units, mounjaro 2.5 mg weekly and metformin 1000 mg twice a day and farxiga 5 mg daily. -trulicity is causing injection site sangita n/bruising and irritation. cgm- hyperglycemic 43%, in range 57%. no hypoglycemia. average glucose 181. She states that she still has many dietary indiscretions in his okay with that. She has had dm education. hypothyroid- last tsh wnl. on levothyroxine 50 mcg CV: Blood pressure today in the office is 122/68. She is currently on metoprolol 100 mg daily. Not on an PEDRO-inhibitor. Cholesterol is controlled with Crestor 10 mg. GI: Pt was told while living in [place] she had cirrhosis. Liver ultrasound here was concerning for advanced fibrosis. patient was evaluated by GI at [facility], TIANA Ochoa, was told needs to follow up every 6 months. She had ultrasound with [facility] in May. Psych: She reports feeling better. Mammo: does not want anymore Colonoscopy: a couple years ago Bone density: osteopenia- 2024 Sister had lung cancer Maternal grandmother had pancreatic ca Mother had liver ca - not a drinkre [facility] Medical History (Updated 08/08/25 @ 08:45 by Canidce Zhang PA-C) Hypothyroidism Surgical History History of partial hysterectomy History of cholecystectomy Family History Brother Substance abuse Mother Liver cancer Sister Lung cancer Social History Housing: House Alcohol intake: current Patient Tobacco Use Status: Former Tobacco user Cigarette Packs Per Day: 1 Years Smoked: 25 e-Cigarette/Vaping Use: Never Used Second Hand Smoke Exposure: No service: Yes Current occupational status: retired Cognitive needs: No Hearing needs: Yes (hearing loss) Vision needs: No Questionnaire Thrive Questionnaire Date Thrive assessed: 08/30/24 I am a: Patient What is your living situation today?: I have a steady place to live Within the past 12 months, did the food you bought not last and you didn't have the money to get more?: Never true Within the past 12 months, did you worry whether your food would run out before you got money to buy more?: Never true Do you have trouble paying for medicines?: No Do you have trouble getting transportation to medical appointments?: No Do you have trouble paying your heating and electricity bill?: No Do you have trouble taking care of your child, family member or friend?: No Do you have trouble with day-to-day activities such as bathing, preparing meals, shopping, managing finances, etc.?: No Are you currently unemployed and looking for a job?: No Are you interested in more education?: No Please select the resources that you would like help with: None Currently or been in a relationship where the following occur: No concerns reported THRIVE Score: 0 RAFAELA-7 AMB Questionnaire RAFAELA-7 Date RAFAELA - 7 assessed: 09/06/24 Source: Developed by Drs. Ace Juan, Joy Green, Tanmay Lopez and colleagues, with an educational radha from [employer]. Physical exam (Primary Care) Vital Signs: Last Vital Signs Temp 97.6 F 08/08/25 08:21 Pulse 63 08/08/25 08:21 Resp 14 08/08/25 08:21 BP 122/68 08/08/25 08:21 Pulse Ox 99 08/08/25 08:21 Oxygen Delivery Method Room Air 08/08/25 08:21 BMI result Body Mass Index 29.7 Tobacco/Smoking Status: Tobacco use Status Tobacco use date assessed 01/30/25 08/08/25 08:19 Patient Tobacco Use Status Former Tobacco user 08/08/25 08:19 e-Cigarette/Vaping Use Never Used 08/08/25 08:19 Thrive Assessment: Date of Thrive Assessment Date Thrive assessed 08/30/24 08/08/25 08:19 Currently or been in a relationship where the following occur: No concerns reported Const Orientation/consciousness: patient oriented x3 HENMT Ears: hearing grossly normal bilaterally Neck Thyroid: Thyroid normal Lymphatic: no lymphadenopathy noted Resp Auscultation: clear to auscultation bilaterally Cardio Rate: regular rate Rhythm: regular rhythm Heart sounds: S1 normal heart sound present and S2 normal heart sound present GI Inspection: Yes normal to inspection Palpation (GI): Soft to palpation and Other GI palpation findings present (nontender, no cva tenderness) Auscultation: normoactive bowel sounds Rectal Exam - Female: deferred Skin General skin exam: no rashes or lesions noted Neuro General: patient oriented x3, gait normal and no focal motor deficits Extrem Other: There is mild right calf tenderness to palpation. Both bilateral lower legs are 35 cm. Soft tissue swelling noted of the right ankle. DP pulses 2+ bilaterally. Results Reviewed Results Reviewed: Laboratory Tests 10/15/24 01/18/25 04/23/25 08:10 08:48 08:01 WBC RBC Hgb Hct MCV MCH MCHC RDW Plt Count 113 L D 101 L 110 L Sodium Potassium Chloride Carbon Dioxide Anion Gap BUN Creatinine Estimated GFR Fasting Glucose Estimat Average Glucose Hemoglobin A1c % Calcium Total Bilirubin AST 40 H ALT 34 H Alkaline Phosphatase 125 H Total Protein Albumin Triglycerides 223 H Cholesterol 138 LDL Cholesterol, Calc 57 HDL Cholesterol 37 L Vitamin B12 TSH 07/29/25 08:20 WBC 5.4 RBC 5.38 Hgb 14.0 Hct 44.2 MCV 82.2 MCH 26.0 L MCHC 31.7 RDW 13.5 Plt Count 98 L Sodium 140 Potassium 4.7 Chloride 106 Carbon Dioxide 28 Anion Gap 11 L BUN 25 H Creatinine 0.80 Estimated GFR > 60 Fasting Glucose 136 H Estimat Average Glucose 163 Hemoglobin A1c % 7.3 H Calcium 9.5 Total Bilirubin 0.6 AST 34 H ALT 29 Alkaline Phosphatase 96 Total Protein 7.4 Albumin 4.3 Triglycerides 153 H Cholesterol 160 LDL Cholesterol, Calc 83 HDL Cholesterol 47 Vitamin B12 838 TSH 1.97 Coding Level of Care Code Est Pt Level 4 (45379) Add On Problem Visit Only Diagnoses HTN (hypertension) I10 Uncontrolled type 2 diabetes mellitus with hyperglycemia, with long-term current use of insulin E11.65; Z79.4 Thrombocytopenia D69.6 Cirrhosis K74.60 Trigger finger, right middle finger M65.331 Pain and swelling of right lower leg M79.661; M79.89 Assessment & Plan Assessment & Plan (1) HTN (hypertension): Code(s): I10 - Essential (primary) hypertension Category: Medical Plan: wnl continue current plan (2) Uncontrolled type 2 diabetes mellitus with hyperglycemia, with long-term current use of insulin: Code(s): E11.65 - Type 2 diabetes mellitus with hyperglycemia; Z79.4 - intermediate frame tender (current) use of insulin Category: Medical Plan: increase mounjaroto 5 mg weekly continue metformin 1000 mg incrase farxiga to 10 mg daily increase lantus to 35 units will let me know if any side effects to dosage adjustments (3) Thrombocytopenia: Code(s): D69.6 - Thrombocytopenia, unspecified Category: Medical Plan: stable (4) Cirrhosis: Code(s): K74.60 - Unspecified cirrhosis of liver Category: Medical Plan: stable per pt notes requested from [facility] [place] (5) Trigger finger, right middle finger: Code(s): M65.331 - Trigger finger, right middle finger Category: Medical Plan: will follow with ortho (6) Pain and swelling of right lower leg: Code(s): M79.661 - Pain in right lower leg; M79.89 - Other specified soft tissue disorders Category: Medical Plan: u/s r/o dvt. understands if anything worsens or changes go to ED. Does not want to do this today Orders: Orders Complete Blood Count Auto Diff Today D69.6 - Thrombocytopenia, unspecified, E11.65 - Type 2 diabetes mellitus with hyperglycemia, E78.2 - Mixed hyperlipidemia, I10 - Essential (primary) hypertension, K74.60 - Unspecified cirrhosis of liver, Z79.4 - intermediate frame tender (current) use of insulin Hemoglobin A1c Today D69.6 - Thrombocytopenia, unspecified, E11.65 - Type 2 diabetes mellitus with hyperglycemia, E78.2 - Mixed hyperlipidemia, I10 - Essential (primary) hypertension, K74.60 - Unspecified cirrhosis of liver, R73.01 - Impaired fasting glucose, Z79.4 - intermediate frame tender (current) use of insulin US venous duplex LE RT Today M79.661 - Pain in right lower leg, M79.89 - Other specified soft tissue disorders Comprehensive [place]. Panel Fast Today D69.6 - Thrombocytopenia, unspecified, E11.65 - Type 2 diabetes mellitus with hyperglycemia, E78.2 - Mixed hyperlipi demia, I10 - Essential (primary) hypertension, K74.60 - Unspecified cirrhosis of liver, Z79.4 - intermediate frame tender (current) use of insulin Medications: New tirzepatide (Mounjaro) 5 mg (0.5 mL) subcut QWEEK 2 mL 3RF dapagliflozin propanediol (Farxiga) 10 mg PO QAM 90 tabs 2RF Discontinued tirzepatide (Mounjaro) Discontinued Reason: Doctor's Order 2.5 mg (0.5 mL) subcut QWEEK 2 mL 3RF
[2025-08-08 08:21] VITALS: BP 122/68; PULSE 63; RESP 14; TEMP 36.4; O2SAT 99; BMI 29.7
--- OUTSIDE RECORDS SUMMARY | 2025-08-08 08:23 | XMS_ITS | Clinical Summary ---
Author Organization [address] [facility] Address [address] [place] [address] Phone Care Team Providers Care Chemical Laboratory Tester Name Role Phone Candice Zhang Primary Care Provider [phone] Allergies No known active allergies Social History [...] Health Screening 10/08/2024 COVID-19 Vaccine (1 - 2024-2 6 season) 2025 Influenza Vaccine (#1) 2025 06/05/2024 [...] Insurance MEDICARE MEDICAID - [place] Care Teams Chemical Laboratory Tester Relationship Specialty Start Date End Date Candice Zhang PA [address] [place] [address] PCP - General Physician Tree Worker 10/08/24
== END 2025-08-08 08:55 | disposition home or self-care (01) ==
LOC: HO.HMCFM 08:11
PROVIDERS: PCP Physician Assistant; Visit Provider Physician Assistant
DX: I10 Essential (primary) hypertension (principal); E11.65 Type 2 diabetes mellitus with hyperglycemia; Z79.4 Long term (current) use of insulin; K74.60 Unspecified cirrhosis of liver; D69.6 Thrombocytopenia, unspecified; M65.331 Trigger finger, right middle finger; M79.661 Pain in right lower leg; M79.89 Other specified soft tissue disorders

== ENCOUNTER → 2025-08-08 08:10 | Outpatient (BNVA) | payer MEDICARE, MEDICAID, SELFPAY | PROVIDERS: PCP Physician Assistant; Visit Provider Physician Assistant | DX: I10 Essential (primary) hypertension (principal); E11.65 Type 2 diabetes mellitus with hyperglycemia; Z79.4 Long term (current) use of insulin; D69.6 Thrombocytopenia, unspecified; K74.60 Unspecified cirrhosis of liver; M65.331 Trigger finger, right middle finger; M79.661 Pain in right lower leg; M79.89 Other specified soft tissue disorders; E78.2 Mixed hyperlipidemia | CPT/HCPCS: 99212 ==